=== PATIENT | female | born 1955 | race Caucasian/White ===

== ENCOUNTER → 2020-10-09 06:49 | Outpatient (CLI) | payer MEDICARE, SELFPAY ==
[2020-10-09 17:21] LABS: SARS-CoV-2 RNA PCR Negative
== END ==
PROVIDERS: PCP Family Medicine; Visit Provider Nurse Practitioner
DX: Z20.822 Contact with and (suspected) exposure to COVID-19 (principal)
CPT/HCPCS: C9803; U0003; U0005

== ENCOUNTER 2020-11-29 14:14 | Inpatient (IN) | payer MEDICARE, SELFPAY ==
[2020-11-29] VITALS (14 sets, daily range): BP systolic 150–192; BP diastolic 59–128; PULSE 66–85; RESP 15–20; TEMP 36.4–37.2; O2SAT 98–100; BMI 20.5
--- NOTE | ~2020-11-29 | MR_ITS ---
EXAMINATION: MR brain/brain stem wo con DATE: 12/05/2020 17:47 INDICATION: Hyponatremia. TECHNIQUE: Magnetic resonance imaging (MRI) of the brain and brainstem was performed without intraven ous contrast. Sequences included sagittal and axial T1-weighted FSE, axial diffusion-weighted FS EPI, axial T2*-weighted GRE, axial T2-weighted FLAIR Propeller, and axial T2-weighted Propeller. Apparent diffusion coefficient (ADC) maps were created. COMPARISON: Head CT 10/21/2016 FINDINGS: There are scattered areas of nonspecific increased T2-weighted signal intensity in the cere bral white matter and tiffany, which is within normal limits for the patient's age. There is no intracra nial hemorrhage, acute infarction, or abnormal intracranial mass lesion. The ventricles are normal in size. The paranasal sinuses are clear. There are likely changes of ocular lens replacement surgeries . There is a trace left mastoid effusion. IMPRESSION: 1. Normal aging brain. Reviewed, dictated and finalized at location A. IMPRESSION: 1. Normal aging brain.
--- NOTE | ~2020-11-29 | XR_ITS ---
EXAMINATION: XR chest 2V DATE: 12/05/2020 17:50 INDICATION: Shortness of breath. TECHNIQUE: Frontal and lateral views of the chest were obtained. COMPARISON: Chest 2 views 04/16/2016 FINDINGS: There is mild atelectasis in the lower lung zones. No pleural effusion or pneumothorax. The heart size is normal. There is a moderate-sized hiatal hernia. IMPRESSION: 1. Mild atelectasis in the lower lung zones. 2. Moderate-sized hiatal hernia. Reviewed, dictated and finalized at location A.
[2020-11-29 15:33] LABS: Basophils Percent Auto 0.8 % (0.2-1.2); Eosinophils Percent Auto 0.6 % (0-4.4); Hematocrit 22.3 % (37.0-47.0); Immature Granulocyte Absolute 0.01 K/mm3 (0.00-0.031); Immature Granulocyte Percent A 0.2 % (0-0.5); Lymphocytes Absolute Auto 0.69 K/mm3 (0.9-3.2); Lymphocytes Percent Auto 14.1 % (18.3-44.2); Mean Corpuscular HGB Conc 30.5 g/dl (32-36); Mean Corpuscular Hemoglobin 19.8 pg (26-34); Mean Platelet Volume 8.7 fl (7.4-10.4); Monocytes Absolute Auto 0.6 K/mm3 (0.1-0.6); Monocytes Percent Auto 12.1 % (2.6-8.5); Neutrophils Absolute Auto 3.5 K/mm3 (1.3-6.7); Neutrophils Percent Auto 72.2 % (45.5-73.1); Platelet Count Result 514 k/mm3 (150-375); Red Blood Count 3.43 M/mm3 (4.2-5.4); Red Cell Distribution Width 16.7 % (11.5-14.5); White Blood Count 4.9 K/mm3 (4.5-10.0)
[2020-11-29 15:41] LABS: Hemoglobin 6.8 g/dL (12.0-15.0)
[2020-11-29 15:42] LABS: Alanine Aminotransferase 40 U/L (4-35); Albumin Level 4.2 g/dL (3.5-5.1); Alkaline Phosphatase 80 U/L (38-126); Anion Gap 8 mmol/L (8-16); Aspartate Amino Transferase 56 U/L (14-36); Bilirubin,Total 0.3 mg/dL (0.2-1.3); Blood Urea Nitrogen 16 mg/dL (7-17); Calcium 9.1 mg/dL (8.4-10.2); Carbon Dioxide 26 mmol/L (22-30); Chloride 91 mmol/L (98-107); Estimated CRCL calculation 55 ml/min; Estimated Glomerular Filt Rate > 60; Glucose 132 mg/dL (65-105); INR 0.9; Magnesium 1.5 mg/dL (1.6-2.3); Prothrombin Time 12.6 Seconds (11.1-14.7); Sodium 125 mmol/L (137-145)
[2020-11-29 15:43] LABS: Partial Thromboplastin Time 23.8 SECONDS (22.3-36.8)
[2020-11-29 16:08] LABS: Immature Reticulocyte Fraction 26.7 % (3.0-15.9); Reticulocyte Hemoglobin Conten 19.5 pg (28.2-35.7); Reticulocyte Percent 1.61 % (0.7-4.3); Reticulocytes Absolute 0.06 B/L (32.2-175.7)
--- NOTE | 2020-11-29 16:08 | ED.GENADULT ---
HPI - General Adult General Chief complaint: Recheck/Abnormal Lab/Rx Stated complaint: abnormal labs Time Seen by Provider: 11/29/20 14:50 Source: patient and RN notes reviewed Mode of arrival: ambulatory Limitations: no limitations History of Present Illness HPI narrative: Patient 65 years old white female referred to the emergency room by her family physician because of low hemoglobin. Patient had regular blood test yesterday. Got a phone call today to go to the emergency room because of low hemoglobin. Patient reports history of chronic fatigue and weakness. Patient denies any fever, chills, nausea, vomiting, abdominal pain, back pain, discoloration of her urine. Patient on baby aspirin once a day, history of hypertension, drinks alcohol occasionally, had a lot of alcohol last night, denies any smoking. Related Data Home Medications Medication Instructions Recorded Confirmed omeprazole 20 mg capsule,delayed 20 mg PO DAILY 08/28/19 11/28/20 release hydralazine 10 mg tablet 10 mg PO TID tablet 11/28/20 11/28/20 hydrochlorothiazide 25 mg tablet 25 mg PO DAILY tablet 11/28/20 11/28/20 Allergies Allergy/AdvReac Type Severity Reaction Status Date / Time lisinopril Allergy Severe Swelling Verified 11/28/20 10:06 of Lip/Tongue/Throat Iodinated Contrast Media Allergy Unknown unknown Verified 11/28/20 10:06 iodine Allergy Unknown unknown Verified 11/28/20 10:06 amlodipine AdvReac Mild ankle Verified 11/28/20 10:06 swelling Review of Systems Review of Systems: Narrative: CONSTITUTIONAL: Denies fever, chills, or sweats. EYES: Denies visual changes, redness, or discharge. ENT: Denies rhinorrhea, congestion, sore throat, or otalgia. CARDIOVASCULAR: Denies chest pain, palpitations, or edema. RESPIRATORY: Denies cough or dyspnea. GASTROINTESTINAL: Denies abdominal pain, nausea, vomiting, or diarrhea. GENITOURINARY: Denies dysuria or hematuria. SKIN: Denies rash or itching. MUSCULOSKELETAL: Denies back pain, joint pain, or myalgia. NEUROLOGIC: Denies headache, numbness, or weakness. PSYCHIATRIC: Denies anxiety or depression. [facility] Past Medical History Medical History Anxiety disorder, unspecified Depression Dyslipidemia GERD (gastroesophageal reflux disease) History of colon polyps HTN (hypertension) (~1999) IBS (irritable bowel syndrome) Kidney disease Surgical History Surgical History Hx of cataract surgery (~2019) Dr. Shanks Family History Family History Grandparent Family history of cardiovascular disease, Onset Age: 76 Father Malignant neoplasm of prostate, Onset Age: 55 Family history of malignant neoplasm of brain, Onset Age: 55 Family history of malignant neoplasm of bone, Onset Age: 55 Mother Family history of congestive heart failure, Onset Age: 76 Hypertension Social History Social History Years smoked: 13 Smoking status: Former smoker Tobacco type: cigarettes Second hand tobacco smoke exposure: No Smoking end date: 09/02/20 Alcohol intake: current Drinks per week: 14 Substance use: never Substance use type: does not use Gender identity (if verbalized by the patient): Female Exam Narrative: Exam Narrative: General appearance: Well-developed, well-nourished Skin: Pale Head: Normocephalic, nontraumatic Eyes: Clear conjunctiva ENT: Oropharynx normal, ears normal, nose normal Neck: Supple, nontender Chest and respiratory: Airway patent, no respiratory distress, no accessory muscle use Heart: Regular rate/rhythm Abdomen: Soft, nontender, no organomegaly, quiet bowel sounds, rectal exam showed yellow stool, guaiac negative Vascular: Normal peripheral pulses, normal capillary refill. Musculoskeletal: Normal range of mo
[2020-11-29 16:19] LABS: Iron 29 ug/dL (37-170)
[2020-11-29 16:21] LABS: Transferrin 424 mg/dL (206-381)
[2020-11-29 16:24] LABS: Percent Iron Saturation 5 % (20-50)
[2020-11-29] MEDS: PANTOPRAZOLE SODIUM IV 40 MG VIAL IV PUSH (16:30)
[2020-11-29 16:40] LABS: Hematocrit 21.4 % (37.0-47.0)
[2020-11-29 16:41] LABS: Hemoglobin 6.7 g/dL (12.0-15.0)
[2020-11-29 16:50] LABS: Ferritin 5.52 ng/mL (11.1-264)
[2020-11-29] MEDS: SODIUM CHLORIDE 0.9% IV 250 ML 30 ML IV CONT (17:08)
[2020-11-29] MEDS: TUBING, BLOOD PLUM PUMP TUBING 1 EACH XX (17:08)
--- NOTE | 2020-11-29 18:26 | ADMGEN ---
This patient, Lorie Samuel, was admitted to [facility] Surg Room 303-01. Patient/family oriented to hospital policies and general routines including ID bracelet, bed and alarms, visiting hours, pain management, procedures, bathroom and other care routines, personal items, smoking policy, room service/diet, and visiting hours. Information on how to activate the Rapid Response Team has been discussed. Patient/Family are encouraged to report perceived risks to care and to ask questions if they do not understand what they are told or what they should do.
--- NOTE | 2020-11-29 18:30 | PM.IMHP ---
H&P: HPI History of Present Illness Date/Time: 11/29/20 18:30 Chief Complaint: Low hemoglobin. Narrative: This is a 65-year-old female with history of alcoholism, hypertension, gastroesophageal reflux disease, colon polyps, and anxiety who presented to the emergency department earlier today via private vehicle from home at the direction of her primary care provider for further evaluation after she was found to have a low hemoglobin level on labs obtained yesterday. Aside from increasing fatigue over the past month or so she has not had any significant symptoms of anemia. She has a history of iron deficiency anemia and was previously on iron but quit taking it for unclear reasons. She has not noticed any obvious blood loss and specifically denies epistaxis, hematemesis, hematochezia, melena, and hematuria. Her stool was guaiac negative in the emergency department. No syncope, near syncope, palpitations, or shortness of breath. She denies epigastric and abdominal discomfort. No significant change in GERD symptoms, which is pretty rare. No bloating. No known history of liver disease, gastritis, peptic ulcers, or varices. No unintentional weight loss. Review of Systems Review of Systems: Narrative: Twelve systems were reviewed with pertinent positives and negatives as per HPI. No fever, chills, or sweats. She denies recent cold and flu symptoms. No cough. No exposure to those positive for COVID-19. For the last several months she has not been walking for exercise as she used to due to intermittent midsternal chest discomfort pressure. This seems to improve with rest and is not associated with nausea, vomiting, shortness of breath, or sweats. No known history of coronary artery disease. She denies orthopnea, PND, and lower extremity edema. She has never had signs or symptoms of alcohol withdrawal. No history of seizures. Except as documented, all other systems were reviewed and are negative. [facility], [facility] Past Medical History Medical History (Updated 11/29/20 @ 20:49 by Jesusita Cedeño PA-C) Alcoholism Anxiety Depression Dyslipidemia Gastroesophageal reflux disease History of colon polyps Hypertension (~1999) Irritable bowel syndrome Surgical History Surgical History (Updated 11/29/20 @ 20:43 by Jesusita Cedeño PA-C) History of cataract extraction (~2018) History of hysterectomy Due to endometriosis History of tubal ligation Family History Family History Grandparent Family history of cardiovascular disease, Onset Age: 76 Father Malignant neoplasm of prostate, Onset Age: 55 Family history of malignant neoplasm of brain, Onset Age: 55 Family history of malignant neoplasm of bone, Onset Age: 55 Mother Family history of congestive heart failure, Onset Age: 76 Hypertension Social History Social History (Updated 11/29/20 @ 20:46 by Jesusita Cedeño PA-C) Social History: Surrogate decision maker: Artie Lynch, significant other. Code status: Full code. Smoking packs per day: 0.25 Smoking cigarettes per day: 5.0 Years smoked: 13 Smoking pack-years: 3.25 Smoking status: Former smoker Tobacco type: cigarettes Second hand tobacco smoke exposure: No Smoking end date: 09/02/20 Alcohol intake: current Alcohol use details: Longstanding history of alcoholism dating back to the early 80s for which she had inpatient treatment on 2 separate occasions. She does not qualify how much she drinks ?I just do not know how to describe it? but she drinks probably at least a half a bottle of wine a night. Previously she drank 1/3 of a 5th of vodka at night but stopped doing that at the beginning of 2020. Substance use: never Substance use type: does not use Additional living arrangements comments: Lives alone in [place]. She has a daughter who is healthy and lives in [place]. His son committed suicide at
[2020-11-29] MEDS: hydrALAZINE 10 MG TABLET PO (22:26)
[2020-11-29] MEDS: MAGNESIUM SULF 2 GM/WATER 50ML 2 GM/50 ML BAG IVPB (22:27)
[2020-11-29 22:56] LABS: Hematocrit 29.5 % (37.0-47.0); Hemoglobin 9.2 g/dL (12.0-15.0)
[2020-11-29 23:11] LABS: Anion Gap 6 mmol/L (8-16); Blood Urea Nitrogen 12 mg/dL (7-17); Calcium 9.1 mg/dL (8.4-10.2); Carbon Dioxide 28 mmol/L (22-30); Chloride 91 mmol/L (98-107); Estimated CRCL calculation 63 ml/min; Estimated Glomerular Filt Rate > 60; Potassium 3.5 mmol/L (3.4-5.0); Sodium 125 mmol/L (137-145)
[2020-11-29 23:26] LABS: Glucose 89 mg/dL (65-105)
[2020-11-30] VITALS (7 sets, daily range): BP systolic 132–155; BP diastolic 53–65; PULSE 61–70; RESP 16–20; TEMP 36.3–37.1; O2SAT 97–100
[2020-11-30 06:26] LABS: Basophils Absolute Auto 0.1 K/mm3 (0.0-0.1); Basophils Percent Auto 0.7 % (0.2-1.2); Eosinophils Percent Auto 0.6 % (0-4.4); Hematocrit 28.9 % (37.0-47.0); Hemoglobin 9.4 g/dL (12.0-15.0); Immature Granulocyte Absolute 0.02 K/mm3 (0.00-0.031); Immature Granulocyte Percent A 0.3 % (0-0.5); Lymphocytes Percent Auto 14.9 % (18.3-44.2); Mean Corpuscular HGB Conc 32.5 g/dl (32-36); Mean Corpuscular Hemoglobin 22.2 pg (26-34); Mean Corpuscular Volume 68.3 fl (80-100); Mean Platelet Volume 8.4 fl (7.4-10.4); Monocytes Absolute Auto 0.9 K/mm3 (0.1-0.6); Neutrophils Absolute Auto 4.7 K/mm3 (1.3-6.7); Neutrophils Percent Auto 69.5 % (45.5-73.1); Platelet Count Result 484 k/mm3 (150-375); Red Blood Count 4.23 M/mm3 (4.2-5.4); Red Cell Distribution Width 21.2 % (11.5-14.5); White Blood Count 6.7 K/mm3 (4.5-10.0)
[2020-11-30 06:47] LABS: Anion Gap 5 mmol/L (8-16); Blood Urea Nitrogen 10 mg/dL (7-17); Calcium 8.7 mg/dL (8.4-10.2); Carbon Dioxide 30 mmol/L (22-30); Chloride 92 mmol/L (98-107); Estimated CRCL calculation 55 ml/min; Estimated Glomerular Filt Rate > 60; Glucose 90 mg/dL (65-105); Potassium 3.7 mmol/L (3.4-5.0); Sodium 127 mmol/L (137-145)
[2020-11-30] MEDS: METOPROLOL SUCCINATE EXT REL 100 MG TABCR PO (07:58)
[2020-11-30] MEDS: hydrALAZINE 10 MG TABLET PO ×3 (07:58→16:26)
[2020-11-30] MEDS: FOLIC ACID 1 MG TABLET PO (07:58)
[2020-11-30] MEDS: FLUoxetine HCL 20 MG CAPSULE 60 MG PO (07:58)
[2020-11-30] MEDS: THIAMINE HCL 100 MG TABLET PO (08:00)
[2020-11-30] MEDS: PANTOPRAZOLE 40 MG TABLET PO (08:00)
[2020-11-30] MEDS: THERAPEUTIC MULTIVITAMINS/MINERALS TAB (*BKC) 1 TABLET PO (08:00)
[2020-11-30 10:42] LABS: IFOB Positive Control Positive; Immunochemical Fecal Occult Bl Negative (N)
[2020-11-30 10:52] LABS: Hematocrit 30.5 % (37.0-47.0); Hemoglobin 9.6 g/dL (12.0-15.0)
--- NOTE | 2020-11-30 13:43 | PM.IMPN ---
Progress Note: A&P Assessment and Plan (1) Alcoholism: Code(s): F10.20 - Alcohol dependence, uncomplicated Status: Acute Assessment and Plan: CIWA PROTOCOL NEEDED BANANA BAG CONTINUE TO MONITOR (2) Microcytic anemia: Code(s): D50.9 - Iron deficiency anemia, unspecified Status: Acute Assessment and Plan: HYPOCHROMIC MICROCYTIC ANEMIA GI HAS BEEN CONSULTED TRANSFUSE FOR HEMOGLOBIN BELOW 7 IRON STUDIES NOTED STATUS POST BLOOD TRANSFUSION (3) Hypertension: Onset Date: ~1999 Code(s): I10 - Essential (primary) hypertension Status: Acute Assessment and Plan: STABLE CONTINUE TO MONITOR (4) Hyponatremia: Code(s): E87.1 - Hypo-osmolality and hyponatremia Status: Acute Assessment and Plan: NO ROLE FOR URINE LYTES PATIENT IS ON DIURETICS AT HOME COULD BE A COMBINATION SIADH AND POTOMANIA WILL HOLD HYDROCHLOROTHIAZIDE CONTINUE TO MONITOR (5) Gastroesophageal reflux disease: Code(s): K21.9 - Gastro-esophageal reflux disease without esophagitis Status: Acute Assessment and Plan: CONTINUE OMEPRAZOLE CONTINUE TO MONITOR (6) Hypomagnesemia: Code(s): E83.42 - Hypomagnesemia Status: Acute Assessment and Plan: WILL GIVE MAGNESIUM SULFATE 2 G IV Additional Plan The patient presents today for evaluation of low hemoglobin found on routine labs yesterday. She is not really symptomatic with this aside from fatigue. Her stool was Hemoccult negative in the emergency department but I still suspect she has occult GI loss. Send stool for occult blood. She will be admitted overnight for transfusion of 2 units packed red blood cells. Change PPI to b.i.d. Iron studies are pending been I am assuming that she is once again iron deficient will need to be started on supplementation. Sodium and magnesium are likely low due to her chronic alcoholism. Magnesium will be replaced and monitored. Hold on IV fluids at this time as she is receiving blood transfusions; I think this will likely correct on its own as it is likely due to beer potomania in addition to thiazide diuretic use. Initiate CIWA protocol. Start thiamine, folic acid, and multivitamin supplementation. Blood pressures have been running high although she does not seem to be anxious or in withdrawal. Will resume her antihypertensives aside from hydrochlorothiazide and continue to monitor closely. Subjective Date/time seen: 11/30/20 13:43 I FEEL GOOD Review of Systems Review of Systems: Narrative: PATIENT PRESENTED TO THE EMERGENCY ROOM DUE TO ABNORMAL LAB VALUE DENIES ANY DISCOMFORT OR ISSUES AT THIS TIME Exam Narrative: Exam Narrative: General: Well-developed female sitting up in bed in no acute distress. Weight: 51 kilograms. BMI: 20.6. HEENT: PERRL, EOMI. Sclerae anicteric. Oral mucosa moist. Oropharynx clear. Neck: Supple. No JVD or lymphadenopathy. Respiratory: Lungs are clear to auscultation bilaterally. Cardiovascular: Regular rate and rhythm with S1-S2. Gastrointestinal: Abdomen is soft, nontender, and nondistended with positive bowel sounds. No voluntary guarding or rebound tenderness. Skin: Warm and dry. No rash or lesions on limited exam. Extremities: No cyanosis, clubbing, or edema. Radial and pedal pulses intact. Neurological: Alert. Cranial nerves 2-12 are grossly intact. No gross focal deficits to casual conversation. Psychiatric: Appropriate mood. Flat affect. Objective Data Vital Signs Vital Signs: Vital Signs - 24 hr 11/29/20 14:16 11/29/20 16:54 11/29/20 17:00 Temperature 97.6 F 98.9 F Pulse Rate 85 73 73 Respiratory Rate 20 16 16 Blood Pressure 169/128 H 180/67 H 180/67 H Pulse Oximetry 99 100 100 11/29/20 17:15 11/29/20 17:53 11/29/20 18:15 Temperature 98.7 F 98.5 F Pulse Rate 72 72 73 Respiratory Rate 16 16 15 Blood Pressure 160/62 H 160/62 H 192/80 H Pulse Oximetry 100 100 100
[2020-12-01] VITALS (7 sets, daily range): BP systolic 142–210; BP diastolic 67–100; PULSE 64–67; RESP 16–20; TEMP 36.5–37; O2SAT 99–100
[2020-12-01] MEDS: cloNIDine HCL 0.1 MG TABLET PO (06:38)
[2020-12-01] MEDS: METOPROLOL SUCCINATE EXT REL 100 MG TABCR PO (08:00)
[2020-12-01] MEDS: FLUoxetine HCL 20 MG CAPSULE 60 MG PO (08:01)
[2020-12-01] MEDS: THIAMINE HCL 100 MG TABLET PO (08:02)
[2020-12-01] MEDS: FOLIC ACID 1 MG TABLET PO (08:02)
[2020-12-01] MEDS: THERAPEUTIC MULTIVITAMINS/MINERALS TAB (*BKC) 1 TABLET PO (08:02)
[2020-12-01] MEDS: PANTOPRAZOLE 40 MG TABLET PO (08:02)
[2020-12-01] MEDS: hydrALAZINE HCL 25 MG TABLET PO ×3 (08:02→17:08)
[2020-12-01 08:16] LABS: Basophils Absolute Auto 0.1 K/mm3 (0.0-0.1); Basophils Percent Auto 0.8 % (0.2-1.2); Eosinophils Absolute Auto 0.1 K/mm3 (0-0.3); Eosinophils Percent Auto 1.3 % (0-4.4); Hematocrit 28.9 % (37.0-47.0); Hemoglobin 9.2 g/dL (12.0-15.0); Immature Granulocyte Absolute 0.02 K/mm3 (0.00-0.031); Immature Granulocyte Percent A 0.3 % (0-0.5); Lymphocytes Absolute Auto 0.71 K/mm3 (0.9-3.2); Lymphocytes Percent Auto 11.7 % (18.3-44.2); Mean Corpuscular HGB Conc 31.8 g/dl (32-36); Mean Corpuscular Hemoglobin 22.3 pg (26-34); Mean Corpuscular Volume 70.1 fl (80-100); Mean Platelet Volume 8.3 fl (7.4-10.4); Monocytes Absolute Auto 0.8 K/mm3 (0.1-0.6); Monocytes Percent Auto 13.9 % (2.6-8.5); Neutrophils Absolute Auto 4.4 K/mm3 (1.3-6.7); Platelet Count Result 448 k/mm3 (150-375); Red Blood Count 4.12 M/mm3 (4.2-5.4); Red Cell Distribution Width 21.3 % (11.5-14.5); White Blood Count 6.1 K/mm3 (4.5-10.0)
[2020-12-01 08:26] LABS: Anion Gap 6 mmol/L (8-16); Blood Urea Nitrogen 11 mg/dL (7-17); Carbon Dioxide 26 mmol/L (22-30); Chloride 92 mmol/L (98-107); Estimated CRCL calculation 63 ml/min; Estimated Glomerular Filt Rate > 60; Glucose 102 mg/dL (65-105); Potassium 3.8 mmol/L (3.4-5.0); Sodium 124 mmol/L (137-145)
--- NOTE | 2020-12-01 12:16 | WPDGIPROGNO ---
Progress Note: A&P Additional Plan Clears tomorrow IV iron Colon +/- EGD +/- Capsule Wednesday Full consult dictated #[id number] Jaya [phone] Subjective Date/time seen: 12/01/20 12:16 Objective Data Vital Signs Vital Signs: Vital Signs - 24 hr 11/30/20 14:00 11/30/20 22:00 12/01/20 06:00 Temperature 37.1 C 36.3 C L 36.5 C Pulse Rate 66 61 64 Respiratory Rate 20 16 16 Blood Pressure 148/62 H 134/59 L 185/83 H Pulse Oximetry 100 99 100 12/01/20 06:09 12/01/20 06:24 12/01/20 07:22 Temperature Pulse Rate Respiratory Rate Blood Pressure 210/100 H 210/100 H 190/82 H Pulse Oximetry 12/01/20 08:00 Temperature Pulse Rate 64 Respiratory Rate Blood Pressure Pulse Oximetry Intake/Output Intake/Output: Intake & Output 11/28/20 11/29/20 11/30/20 12/01/20 23:59 23:59 23:59 23:59 Intake Total 700 2492 160 Output Total 1100 250 Balance 700 1392 -90 Meds/Results Medications: Active Medications Generic Name Dose Route Start Last Admin Trade Name Freq PRN Reason Stop Dose Admin Chlordiazepoxide HCl 25 mg 11/29/20 20:54 Chlordiazepoxide (*Crx) 25 Mg Capsule PO Q8H PRN Alcohol Withdrawal Fluoxetine HCl 60 mg 11/30/20 09:00 12/01/20 08:01 Fluoxetine Hcl 20 Mg Capsule PO 60 mg DAILY DEMI Administration Folic Acid 1 mg 11/30/20 09:00 12/01/20 08:02 Folic Acid 1 Mg Tablet PO 1 mg DAILY DEMI Administration Hydralazine HCl 25 mg 12/01/20 09:00 12/01/20 08:02 Hydralazine Hcl 25 Mg Tablet PO 25 mg TID DEMI Administration Lorazepam 1 mg 11/29/20 20:54 Lorazepam Inj (*Crx) 2 Mg/Ml Vial IV PUSH Q3H PRN Anxiety Metoprolol Succinate 100 mg 11/30/20 09:00 12/01/20 08:00 Metoprolol Succinate Ext Rel 100 Mg Tabcr PO 100 mg DAILY DEMI Administration Multivitamins/Calcium 1 tablet 11/30/20 09:00 12/01/20 08:02 Therapeutic Multivitamins/Minerals Tab (*Bkc) PO 1 tablet QAM DEMI Administration Pantoprazole Sodium 40 mg 11/30/20 09:00 12/01/20 08:02 Pantoprazole 40 Mg Tablet PO 40 mg QAM DEMI Administration Thiamine HCl 100 mg 11/30/20 09:00 12/01/20 08:02 Thiamine Hcl 100 Mg Tablet PO 100 mg QAM DEMI Administration Labs Labs: Laboratory Results - last 24 hr 12/01/20 12/01/20 07:57 07:57 WBC 6.1 RBC 4.12 L Hgb 9.2 L Hct 28.9 L MCV 70.1 L MCH 22.3 L MCHC 31.8 L RDW 21.3 H Plt Count 448 H MPV 8.3 Immature Gran % (Auto) 0.3 Neut % (Auto) 72.0 Lymph % (Auto) 11.7 L [place] % (Auto) 13.9 H Eos % (Auto) 1.3 Baso % (Auto) 0.8 Lymph # (Auto) 0.71 L [place] # (Auto) 0.8 H Eos # (Auto) 0.1 Baso # (Auto) 0.1 Abs Immat Gran (auto) 0.02 Absolute Neuts (auto) 4.4 Absolute Nucleated RBC 0.0 Nucleated RBC % 0.0 Sodium 124 L Potassium 3.8 Chloride 92 L Carbon Dioxide 26 Anion Gap 6 L BUN 11 Creatinine 0.60 L Estim Creat Clear Calc 63 Estimated GFR > 60 Glucose 102 Calcium 9.0
--- NOTE | 2020-12-01 12:17 | PM.IMPN ---
Progress Note: A&P Assessment and Plan (1) Alcoholism: Code(s): F10.20 - Alcohol dependence, uncomplicated Status: Acute Assessment and Plan: CIWA PROTOCOL NEEDED BANANA BAG CONTINUE TO MONITOR (2) Microcytic anemia: Code(s): D50.9 - Iron deficiency anemia, unspecified Status: Acute Assessment and Plan: HYPOCHROMIC MICROCYTIC ANEMIA GI HAS BEEN CONSULTED TRANSFUSE FOR HEMOGLOBIN BELOW 7 IRON STUDIES NOTED STATUS POST BLOOD TRANSFUSION (3) Hypertension: Onset Date: ~1999 Code(s): I10 - Essential (primary) hypertension Status: Acute Assessment and Plan: STABLE CONTINUE TO MONITOR Patient had hypertensive episode in the morning She is on hydralazine and metoprolol Currently holding HCTZ due to hyponatremia (4) Hyponatremia: Code(s): E87.1 - Hypo-osmolality and hyponatremia Status: Acute Assessment and Plan: NO ROLE FOR URINE LYTES PATIENT IS ON DIURETICS AT HOME COULD BE A COMBINATION SIADH AND POTOMANIA WILL HOLD HYDROCHLOROTHIAZIDE CONTINUE TO MONITOR Started on free water restriction Repeat BMP in the morning (5) Gastroesophageal reflux disease: Code(s): K21.9 - Gastro-esophageal reflux disease without esophagitis Status: Acute Assessment and Plan: CONTINUE OMEPRAZOLE CONTINUE TO MONITOR (6) Hypomagnesemia: Code(s): E83.42 - Hypomagnesemia Status: Acute Assessment and Plan: WILL GIVE MAGNESIUM SULFATE 2 G IV Additional Plan The patient presents today for evaluation of low hemoglobin found on routine labs yesterday. She is not really symptomatic with this aside from fatigue. Her stool was Hemoccult negative in the emergency department but I still suspect she has occult GI loss. Send stool for occult blood. She will be admitted overnight for transfusion of 2 units packed red blood cells. Change PPI to b.i.d. Iron studies are pending been I am assuming that she is once again iron deficient will need to be started on supplementation. Sodium and magnesium are likely low due to her chronic alcoholism. Magnesium will be replaced and monitored. Hold on IV fluids at this time as she is receiving blood transfusions; I think this will likely correct on its own as it is likely due to beer potomania in addition to thiazide diuretic use. Initiate CIWA protocol. Start thiamine, folic acid, and multivitamin supplementation. Blood pressures have been running high although she does not seem to be anxious or in withdrawal. Will resume her antihypertensives aside from hydrochlorothiazide and continue to monitor closely. Subjective Date/time seen: 12/01/20 12:17 I feel fine Review of Systems Review of Systems: Narrative: Patient has no complaints this morning Exam Narrative: Exam Narrative: General: Well-developed female sitting up in bed in no acute distress. Weight: 51 kilograms. BMI: 20.6. HEENT: PERRL, EOMI. Sclerae anicteric. Oral mucosa moist. Oropharynx clear. Neck: Supple. No JVD or lymphadenopathy. Respiratory: Lungs are clear to auscultation bilaterally. Cardiovascular: Regular rate and rhythm with S1-S2. Gastrointestinal: Abdomen is soft, nontender, and nondistended with positive bowel sounds. No voluntary guarding or rebound tenderness. Skin: Warm and dry. No rash or lesions on limited exam. Extremities: No cyanosis, clubbing, or edema. Radial and pedal pulses intact. Neurological: Alert. Cranial nerves 2-12 are grossly intact. No gross focal deficits to casual conversation. Psychiatric: Appropriate mood. Flat affect. Objective Data Vital Signs Vital Signs: Vital Signs - 24 hr 11/30/20 14:00 11/30/20 22:00 12/01/20 06:00 Temperature 98.8 F 97.3 F L 97.7 F Pulse Rate 66 61 64 Respiratory Rate 20 16 16 Blood Pressure 148/62 H 134/59 L 185/83 H Pulse Oximetry 100 99 100 12/01/20 06:09 12/01/20 06:24 12/01/20 07:22 Temperature Puls
--- NOTE | 2020-12-01 17:40 | CONS_ITS ---
DATE OF CONSULTATION: 12/01/2020 HISTORY OF PRESENT ILLNESS: 65-year-old female with history of alcohol abuse, hypertension, GERD, history of colon polyps, anxiety, iron deficiency anemia, hyperlipidemia, cataract extraction, hysterectomy, tubal ligation, who again presents with anemia. I am now asked to provide GI evaluation at the request of the hospitalist service. PRIMARY CARE PROVIDER: Dr. Hu The patient's main complaint was fatigue. She otherwise denies abdominal pain, nausea, vomiting, heartburn, trouble swallowing, loss of appetite or weight, diarrhea, constipation, hematochezia, melena, fever, jaundice, scleral icterus, dark urine, light stools, itching, hot or cold intolerance, chest pain, shortness of breath at rest, hematuria, dysuria, new cough or visual changes, easy bruising, tingling of skin, bone pain or tremors. No endocarditis risk doctors. ALLERGIES: SEE LIST. OUTPATIENT MEDICINES: Include omeprazole 20 mg daily, Prozac, metoprolol, hydralazine, hydrochlorothiazide. SOCIAL HISTORY: Quit smoking on September 02, 2020. She drinks at least a half bottle of wine per night. FAMILY HISTORY: Negative for GI malignancy. The patient had colonoscopy with Dr. Yee in 2010, unremarkable. PHYSICAL EXAM: GENERAL: Well developed, well nourished female lying in bed, no apparent distress. She has no lower extremity edema, jaundice, spider angioma, or palmar erythema. HEENT: Skull is normocephalic, atraumatic. Pupils nonicteric. Oropharynx clear. NECK: Supple without thyromegaly. LUNGS: Clear to auscultation. HEART: Rate and rhythm regular. S1, S2 normal. ABDOMEN: Normoactive bowel sounds. Soft, nontender, nonrigid, nondistended without hepatosplenomegaly or masses. RECTAL: Deferred. NEURO: Conscious and alert x3. LABS: On December 01, hematocrit 29, MCV 70. On November 30, stool is heme negative. On November 29, stool is heme negative. Hematocrit 22, MCV 65. Ferritin is 6. INR 0.9. PTT is 24. ASSESSMENT AND PLAN: 1. Gastroesophageal reflux disease. Continue PPI. 2. Iron deficiency anemia. Certainly concern for GI source of blood loss including ulceration, arteriovenous malformation malignancy or polyp of the upper or lower GI tract. Could be esophagitis or some other issue. 3. The patient has no evidence of active GI bleed. Follow H and H and transfuse as needed. 4. Care with aspirin, nonsteroidals, and anticoagulants. 5. The patient has already eaten today, so we will start clear liquids tomorrow and consider for colonoscopy, possible upper endoscopy and possible capsule endoscopy on Wednesday. We will leave further details to Dr. Shelley. Consider IV iron, continue PPI. Thank you for allowing me to share in the care of this patient. Further recommendations per Dr. Shelley. CECE VALDEZ M.D. CC:? Trenton Hu M.D. GRAIN COMBINE DRIVER GRAIN COMBINE DRIVER D I MT: Sharyn
[2020-12-02] VITALS (9 sets, daily range): BP systolic 111–191; BP diastolic 55–84; PULSE 62–66; RESP 13–18; TEMP 36.6–36.7; O2SAT 98–100
[2020-12-02] MEDS: FLUoxetine HCL 20 MG CAPSULE 60 MG PO (08:29)
[2020-12-02] MEDS: PANTOPRAZOLE 40 MG TABLET PO (08:29)
[2020-12-02] MEDS: METOPROLOL SUCCINATE EXT REL 100 MG TABCR PO (08:29)
[2020-12-02] MEDS: hydrALAZINE HCL 25 MG TABLET PO ×3 (08:29→17:53)
--- NOTE | 2020-12-02 09:50 | PC.NURSE ---
patient to GI lab for procedure
[2020-12-02] MEDS: LACTATED RINGERS 1,000 ML 150 ML IV CONT (10:09)
--- NOTE | 2020-12-02 10:12 | WPDANESEPPF ---
Anes - Initial Pre Proc Eval Procedure: Operation Date: 12/02/20 11:00 Proposed Procedures p Esophagogastroduodenoscopy - Tristen Vasques MD Date/Time: 12/02/20 10:12 Surgeon: Rissa Banks MD Pre Op Diagnosis: anemia,alcohol abuse Patient Data Age: 65 Gender: F Height: 5 ft 2 in Weight: 51 kg Last Vital Signs Temp 36.6 C 12/02/20 10:05 Pulse 66 12/02/20 10:05 Resp 18 12/02/20 10:05 BP 191/84 H 12/02/20 10:05 Pulse Ox 98 12/02/20 10:05 Allergies Allergy/AdvReac Type Severity Reaction Status Date / Time lisinopril Allergy Severe Swelling Verified 11/29/20 18:39 of Lip/Tongue/Throat Iodinated Contrast Media Allergy Mild Nausea and Verified 11/29/20 18:39 Vomiting iodine Allergy Mild Nausea and Verified 11/29/20 18:39 Vomiting amlodipine AdvReac Mild ankle Verified 11/29/20 18:39 swelling Home Medications Medication Instructions Recorded Confirmed Type omeprazole 20 mg capsule,delayed 20 mg PO DAILY 08/28/19 11/29/20 History release fluoxetine 20 mg tablet 20 mg PO DAILY #30 tablet 09/23/20 11/29/20 Rx fluoxetine 40 mg capsule 40 mg PO DAILY #90 cap 10/03/20 11/29/20 Rx metoprolol succinate 100 mg 100 mg PO DAILY #90 tablet 10/03/20 11/29/20 Rx tablet,extended release 24 hr hydralazine 10 mg tablet 10 mg PO TID tablet 11/28/20 11/29/20 History hydrochlorothiazide 25 mg tablet 25 mg PO DAILY tablet 11/28/20 11/29/20 History Patient hx anesthesia problems: none Family hx anesthesia problems: none PMFSH Past Medical History Medical History Alcoholism Anxiety Depression Dyslipidemia Gastroesophageal reflux disease History of colon polyps Hypertension (~1999) Irritable bowel syndrome Surgical History Surgical History History of cataract extraction (~2018) History of hysterectomy Due to endometriosis History of tubal ligation Family History Family History Grandparent Family history of cardiovascular disease, Onset Age: 76 Father Malignant neoplasm of prostate, Onset Age: 55 Family history of malignant neoplasm of brain, Onset Age: 55 Family history of malignant neoplasm of bone, Onset Age: 55 Mother Family history of congestive heart failure, Onset Age: 76 Hypertension Social History Social History Social History: Surrogate decision maker: Artie Lynch, significant other. Code status: Full code. Smoking packs per day: 0.25 Smoking cigarettes per day: 5.0 Years smoked: 13 Smoking pack-years: 3.25 Smoking status: Former smoker Tobacco type: cigarettes Second hand tobacco smoke exposure: No Smoking end date: 09/02/20 Alcohol intake: current Alcohol use details: Longstanding history of alcoholism dating back to the early s for which she had inpatient treatment on 2 separate occasions. She does not qualify how much she drinks ?I just do not know how to describe it? but she drinks probably at least a half a bottle of wine a night. Previously she drank 1/3 of a 5th of vodka at night but stopped doing that at the beginning of 2020. Substance use: never Substance use type: does not use Additional living arrangements comments: Lives alone in [place]. She has a daughter who is healthy and lives in [place]. His son committed suicide at age 23. Additional occupation/education comments: Unemployed. Gender identity (if verbalized by the patient): Female Sexual Orientation (if Verbalized by the Patient): Straight or Heterosexual Spiritual care concerns: No Anes - Eval Final PreProcedure Day of Procedure 12/02/20 10:12 Patient weight: normal Heart: regular rate and rhythm Lungs: clear to auscultation Airway: Mallam
[2020-12-02] MEDS: hydrALAZINE HCL 20 MG/ML VIAL 10 MG IV PUSH (10:30)
--- NOTE | 2020-12-02 10:33 | SUR.PREOP ---
DR OCONNELL NOTIFIED B/P 191/, HR 66. NEW ORDERS RECEIVED FOR HYDRALAZINE 10MG IVP. GIVEN PER ORDERS.
--- NOTE | 2020-12-02 11:32 | PM.IMPN ---
Progress Note: A&P Assessment and Plan (1) Alcoholism: Code(s): F10.20 - Alcohol dependence, uncomplicated Status: Acute Assessment and Plan: CIWA PROTOCOL NEEDED BANANA BAG CONTINUE TO MONITOR (2) Microcytic anemia: Code(s): D50.9 - Iron deficiency anemia, unspecified Status: Acute Assessment and Plan: HYPOCHROMIC MICROCYTIC ANEMIA GI HAS BEEN CONSULTED TRANSFUSE FOR HEMOGLOBIN BELOW 7 IRON STUDIES NOTED STATUS POST BLOOD TRANSFUSION PLANS FOR EGD TOMORROW (3) Hypertension: Onset Date: ~1999 Code(s): I10 - Essential (primary) hypertension Status: Acute Assessment and Plan: STABLE CONTINUE TO MONITOR Patient had hypertensive episode in the morning She is on hydralazine and metoprolol Currently holding HCTZ due to hyponatremia (4) Hyponatremia: Code(s): E87.1 - Hypo-osmolality and hyponatremia Status: Acute Assessment and Plan: NO ROLE FOR URINE LYTES PATIENT IS ON DIURETICS AT HOME COULD BE A COMBINATION SIADH AND POTOMANIA WILL HOLD HYDROCHLOROTHIAZIDE CONTINUE TO MONITOR Started on free water restriction Repeat BMP in the morning (5) Gastroesophageal reflux disease: Code(s): K21.9 - Gastro-esophageal reflux disease without esophagitis Status: Acute Assessment and Plan: CONTINUE OMEPRAZOLE CONTINUE TO MONITOR (6) Hypomagnesemia: Code(s): E83.42 - Hypomagnesemia Status: Acute Assessment and Plan: WILL GIVE MAGNESIUM SULFATE 2 G IV Additional Plan The patient presents today for evaluation of low hemoglobin found on routine labs yesterday. She is not really symptomatic with this aside from fatigue. Her stool was Hemoccult negative in the emergency department but I still suspect she has occult GI loss. Send stool for occult blood. She will be admitted overnight for transfusion of 2 units packed red blood cells. Change PPI to b.i.d. Iron studies are pending been I am assuming that she is once again iron deficient will need to be started on supplementation. Sodium and magnesium are likely low due to her chronic alcoholism. Magnesium will be replaced and monitored. Hold on IV fluids at this time as she is receiving blood transfusions; I think this will likely correct on its own as it is likely due to beer potomania in addition to thiazide diuretic use. Initiate CIWA protocol. Start thiamine, folic acid, and multivitamin supplementation. Blood pressures have been running high although she does not seem to be anxious or in withdrawal. Will resume her antihypertensives aside from hydrochlorothiazide and continue to monitor closely. PLANS FOR EGD TOMORROW Subjective Date/time seen: 12/02/20 11:32 I FEEL FINE Review of Systems Review of Systems: Narrative: PATIENT DENIED ANY ISSUES AT THE TIME OF MY VISIT TODAY Exam Narrative: Exam Narrative: General: Well-developed female sitting up in bed in no acute distress. Weight: 51 kilograms. BMI: 20.6. HEENT: PERRL, EOMI. Sclerae anicteric. Oral mucosa moist. Oropharynx clear. Neck: Supple. No JVD or lymphadenopathy. Respiratory: Lungs are clear to auscultation bilaterally. Cardiovascular: Regular rate and rhythm with S1-S2. Gastrointestinal: Abdomen is soft, nontender, and nondistended with positive bowel sounds. No voluntary guarding or rebound tenderness. Skin: Warm and dry. No rash or lesions on limited exam. Extremities: No cyanosis, clubbing, or edema. Radial and pedal pulses intact. Neurological: Alert. Cranial nerves 2-12 are grossly intact. No gross focal deficits to casual conversation. Psychiatric: Appropriate mood. Flat affect. Objective Data Vital Signs Vital Signs: Vital Signs - 24 hr 12/01/20 14:00 12/01/20 21:54 12/02/20 06:00 Temperature 98.6 F 98.1 F 97.9 F Pulse Rate 67 64 62 Respiratory Rate 20 20 18 Blood Pressure 142/67 H 155/73 H 171/68 H Pulse Oximetry 99 100 100 05/0
--- NOTE | 2020-12-02 12:00 | PC.NURSE ---
patient returned to room from procedure
[2020-12-02] MEDS: THERAPEUTIC MULTIVITAMINS/MINERALS TAB (*BKC) 1 TABLET PO (12:12)
[2020-12-02] MEDS: FOLIC ACID 1 MG TABLET PO (12:12)
[2020-12-02] MEDS: THIAMINE HCL 100 MG TABLET PO (12:12)
[2020-12-02 12:24] LABS: Basophils Percent Auto 0.4 % (0.2-1.2); Eosinophils Absolute Auto 0.1 K/mm3 (0-0.3); Eosinophils Percent Auto 1.5 % (0-4.4); Hematocrit 29.7 % (37.0-47.0); Hemoglobin 9.4 g/dL (12.0-15.0); Immature Granulocyte Absolute 0.02 K/mm3 (0.00-0.031); Immature Granulocyte Percent A 0.4 % (0-0.5); Lymphocytes Absolute Auto 0.77 K/mm3 (0.9-3.2); Lymphocytes Percent Auto 14.7 % (18.3-44.2); Mean Corpuscular HGB Conc 31.6 g/dl (32-36); Mean Corpuscular Hemoglobin 21.9 pg (26-34); Mean Corpuscular Volume 69.2 fl (80-100); Mean Platelet Volume 8.3 fl (7.4-10.4); Monocytes Absolute Auto 0.7 K/mm3 (0.1-0.6); Monocytes Percent Auto 13.3 % (2.6-8.5); Neutrophils Absolute Auto 3.7 K/mm3 (1.3-6.7); Neutrophils Percent Auto 69.7 % (45.5-73.1); Platelet Count Result 458 k/mm3 (150-375); Red Blood Count 4.29 M/mm3 (4.2-5.4); Red Cell Distribution Width 21.7 % (11.5-14.5); White Blood Count 5.3 K/mm3 (4.5-10.0)
[2020-12-02 12:30] LABS: Anion Gap 2 mmol/L (8-16); Blood Urea Nitrogen 9 mg/dL (7-17); Calcium 8.8 mg/dL (8.4-10.2); Carbon Dioxide 29 mmol/L (22-30); Chloride 90 mmol/L (98-107); Estimated CRCL calculation 63 ml/min; Estimated Glomerular Filt Rate > 60; Glucose 105 mg/dL (65-105); Potassium 4.1 mmol/L (3.4-5.0); Sodium 121 mmol/L (137-145)
[2020-12-02] MEDS: BISACODYL 5 MG TABLET EC 20 MG PO (15:01)
[2020-12-02] MEDS: polyethylene glycoL 3350 238 GM BOTTLE PO (17:52)
[2020-12-02] MEDS: ONDANSETRON INJ 4 MG/2 ML VIAL IV PUSH (18:19)
[2020-12-03] VITALS (8 sets, daily range): BP systolic 85–178; BP diastolic 32–70; PULSE 55–70; RESP 14–20; TEMP 36.4–37; O2SAT 98–100
[2020-12-03 06:01] LABS: Basophils Percent Auto 0.9 % (0.2-1.2); Eosinophils Absolute Auto 0.2 K/mm3 (0-0.3); Eosinophils Percent Auto 3.4 % (0-4.4); Hematocrit 27.7 % (37.0-47.0); Hemoglobin 8.7 g/dL (12.0-15.0); Immature Granulocyte Absolute 0.01 K/mm3 (0.00-0.031); Immature Granulocyte Percent A 0.2 % (0-0.5); Lymphocytes Percent Auto 22.4 % (18.3-44.2); Mean Corpuscular HGB Conc 31.4 g/dl (32-36); Mean Corpuscular Hemoglobin 21.9 pg (26-34); Mean Corpuscular Volume 69.6 fl (80-100); Mean Platelet Volume 8.5 fl (7.4-10.4); Monocytes Absolute Auto 0.9 K/mm3 (0.1-0.6); Monocytes Percent Auto 19.1 % (2.6-8.5); Neutrophils Absolute Auto 2.4 K/mm3 (1.3-6.7); Platelet Count Result 457 k/mm3 (150-375); Red Blood Count 3.98 M/mm3 (4.2-5.4); Red Cell Distribution Width 21.6 % (11.5-14.5); White Blood Count 4.5 K/mm3 (4.5-10.0)
[2020-12-03 06:19] LABS: Anion Gap 4 mmol/L (8-16); Blood Urea Nitrogen 7 mg/dL (7-17); Calcium 8.9 mg/dL (8.4-10.2); Carbon Dioxide 27 mmol/L (22-30); Chloride 90 mmol/L (98-107); Estimated CRCL calculation 63 ml/min; Estimated Glomerular Filt Rate > 60; Glucose 101 mg/dL (65-105); Potassium 3.7 mmol/L (3.4-5.0); Sodium 121 mmol/L (137-145)
[2020-12-03] MEDS: MAGNESIUM CITRATE 300 ML BTL 240 ML PO (06:49)
--- NOTE | 2020-12-03 07:33 | WPDANESPN ---
Anes - Prog Note Post-Op Date/Time: 12/03/20 07:33 Cardiovascular status: normal Respiratory status: normal Airway patency: baseline Mental status: baseline Post-Op hydration status: normal Vital Signs: Last Vital Signs Temp 36.5 C 12/03/20 06:00 Pulse 59 L 12/03/20 06:00 Resp 16 12/03/20 06:00 BP 165/61 H 12/03/20 06:00 Pulse Ox 99 12/03/20 06:00 Pain Score (VAS): 3 I/O: Intake & Output 12/02/20 12/02/20 12/03/20 15:59 23:59 07:59 Intake Total 340 450 425 Output Total 300 450 Balance 340 150 -25 Laboratory Tests 12/03/20 05:34 12/03/20 05:34 12/02/20 12/02/20 12/03/20 12:13 12:13 05:34 WBC 5.3 4.5 RBC 4.29 3.98 L Hgb 9.4 L 8.7 L Hct 29.7 L 27.7 L MCV 69.2 L 69.6 L MCH 21.9 L 21.9 L MCHC 31.6 L 31.4 L RDW 21.7 H 21.6 H Plt Count 458 H 457 H MPV 8.3 8.5 Immature Gran % (Auto) 0.4 0.2 Neut % (Auto) 69.7 54.0 Lymph % (Auto) 14.7 L 22.4 Calvert % (Auto) 13.3 H 19.1 H Eos % (Auto) 1.5 3.4 Baso % (Auto) 0.4 0.9 Lymph # (Auto) 0.77 L 1.00 [place]vert # (Auto) 0.7 H 0.9 H Eos # (Auto) 0.1 0.2 Baso # (Auto) 0.0 0.0 Abs Immat Gran (auto) 0.02 0.01 Absolute Neuts (auto) 3.7 2.4 Absolute Nucleated RBC 0.0 0.0 Nucleated RBC % 0.0 0.0 Sodium 121 L Potassium 4.1 Chloride 90 L Carbon Dioxide 29 Anion Gap 2 L BUN 9 Creatinine 0.60 L Estim Creat Clear Calc 63 Estimated GFR > 60 Glucose 105 Calcium 8.8 12/03/20 05:34 WBC RBC Hgb Hct MCV MCH MCHC RDW Plt Count MPV Immature Gran % (Auto) Neut % (Auto) Lymph % (Auto) [place]vert % (Auto) Eos % (Auto) Baso % (Auto) Lymph # (Auto) [place]vert # (Auto) Eos # (Auto) Baso # (Auto) Abs Immat Gran (auto) Absolute Neuts (auto) Absolute Nucleated RBC Nucleated RBC % Sodium 121 L Potassium 3.7 Chloride 90 L Carbon Dioxide 27 Anion Gap 4 L BUN 7 Creatinine 0.60 L Estim Creat Clear Calc 63 Estimated GFR > 60 Glucose 101 Calcium 8.9 Post-procedural complaints: none Patient Feedback: Patient satisfied with anesthetic care.
[2020-12-03] MEDS: THIAMINE HCL 100 MG TABLET PO (08:00)
[2020-12-03] MEDS: FLUoxetine HCL 20 MG CAPSULE 60 MG PO (08:00)
[2020-12-03] MEDS: METOPROLOL SUCCINATE EXT REL 100 MG TABCR PO (08:00)
[2020-12-03] MEDS: hydrALAZINE HCL 25 MG TABLET PO ×3 (08:00→16:04)
[2020-12-03] MEDS: LACTATED RINGERS 1,000 ML 150 ML IV CONT (09:49)
--- NOTE | 2020-12-03 10:15 | WPDANESEPPF ---
Anes - Initial Pre Proc Eval Procedure: Operation Date: 12/03/20 11:30 Proposed Procedures p Colonoscopy - Tristen Vasques MD Date/Time: 12/03/20 10:15 Surgeon: Rissa Banks MD Pre Op Diagnosis: anemia,alcohol abuse Patient Data Age: 65 Gender: F Height: 1.57 m Weight: 51 kg Last Vital Signs Temp 37.0 C 12/03/20 09:45 Pulse 67 12/03/20 09:45 Resp 18 12/03/20 09:45 BP 178/70 H 12/03/20 09:45 Pulse Ox 98 12/03/20 09:45 Allergies Allergy/AdvReac Type Severity Reaction Status Date / Time lisinopril Allergy Severe Swelling Verified 12/03/20 09:44 of Lip/Tongue/Throat Iodinated Contrast Media Allergy Mild Nausea and Verified 12/03/20 09:44 Vomiting iodine Allergy Mild Nausea and Verified 12/03/20 09:44 Vomiting amlodipine AdvReac Mild ankle Verified 12/03/20 09:44 swelling Home Medications Medication Instructions Recorded Confirmed Type omeprazole 20 mg capsule,delayed 20 mg PO DAILY 08/28/19 11/29/20 History release fluoxetine 20 mg tablet 20 mg PO DAILY #30 tablet 09/23/20 11/29/20 Rx fluoxetine 40 mg capsule 40 mg PO DAILY #90 cap 10/03/20 11/29/20 Rx metoprolol succinate 100 mg 100 mg PO DAILY #90 tablet 10/03/20 11/29/20 Rx tablet,extended release 24 hr hydralazine 10 mg tablet 10 mg PO TID tablet 11/28/20 11/29/20 History hydrochlorothiazide 25 mg tablet 25 mg PO DAILY tablet 11/28/20 11/29/20 History Laboratory Tests 12/02/20 12/02/20 12/03/20 12:13 12:13 05:34 WBC 5.3 K/mm3 K/mm3 4.5 K/mm3 K/mm3 (4.5-10.0) (4.5-10.0) RBC 4.29 M/mm3 M/mm3 3.98 M/mm3 L M/mm3 (4.2-5.4) (4.2-5.4) Hgb 9.4 g/dL L g/dL 8.7 g/dL L g/dL (12.0-15.0) (12.0-15.0) Hct 29.7 % L % 27.7 % L % (37.0-47.0) (37.0-47.0) MCV 69.2 fl L fl 69.6 fl L fl (80-100) (80-100) MCH 21.9 pg L pg 21.9 pg L pg (26-34) (26-34) MCHC 31.6 g/dl L g/dl 31.4 g/dl L g/dl (32-36) (32-36) RDW 21.7 % H % 21.6 % H % (11.5-14.5) (11.5-14.5) Plt Count 458 k/mm3 H k/mm3 457 k/mm3 H k/mm3 (150-375) (150-375) MPV 8.3 fl fl 8.5 fl fl (7.4-10.4) (7.4-10.4) Immature Gran % (Auto) 0.4 % % 0.2 % % (0-0.5) (0-0.5) Neut % (Auto) 69.7 % % 54.0 % % (45.5-73.1) (45.5-73.1) Lymph % (Auto) 14.7 % L % 22.4 % % (18.3-44.2) (18.3-44.2) [place] % (Auto) 13.3 % H % 19.1 % H % (2.6-8.5) (2.6-8.5) Eos % (Auto) 1.5 % % 3.4 % % (0-4.4) (0-4.4) Baso % (Auto) 0.4 % % 0.9 % % (0.2-1.2) (0.2-1.2) Lymph # (Auto) 0.77 K/mm3 L K/mm3 1.00 K/mm3 K/mm3 (0.9-3.2) (0.9-3.2) [place] # (Auto) 0.7 K/mm3 H K/mm3 0.9 K/mm3 H K/mm3 (0.1-0.6) (0.1-0.6) Eos # (Auto) 0.1 K/mm3 K/mm3 0.2 K/mm3 K/mm3 (0-0.3) (0-0.3) Baso # (Auto) 0.0 K/mm3 K/mm3 0.0 K/mm3 K/mm3 (0.0-0.1) (0.0-0.1) Abs Immat Gran (auto) 0.02 K/mm3 K/mm3 0.01 K/mm3 K/mm3 (0.00-0.031) (0.00-0.031) Absolute Neuts (auto) 3.7 K/mm3 K/mm3 2.4 K/mm3 K/mm3 (1.3-6.7) (1.3-6.7) Absolute Nucleated RBC 0.0 K/mm3 K/mm3 0.0 K/mm3 K/mm3 (0.0-0.012) (0.0-0.012) Nucleated RBC % 0.0 % % 0.0 % % (0.0-0.2) (0.0-0.2) Sodium 121 mmol/L L mmol/L (137-145) Potassium 4.1 mmol/L mmol/L (3.4-5.0) Chloride 90 mmol/L L mmol/L (98-107) Carbon Dioxide 29 mmol/L mmol/L (22-30) Anion Gap 2 mmol/L L mmol/L (8-16) BUN 9 mg/dL mg/dL (7-17) Creatinine 0.60 mg/dL L mg/dL (0.7-1.0) Estim Creat Clear Calc 63 ml/min ml/min Estimated GFR > 60 (59 - ) Glucose 105 mg/dL mg/dL (65-105) Calcium 8.8 mg/dL mg/dL (8.4-10.2) 12/03/20 05:34 WBC RBC Hgb Hct MCV MCH MCHC RDW Plt Count MPV Immature Gran % (Auto) Neut % (Auto) Lymph % (Auto)
--- NOTE | 2020-12-03 16:04 | PM.IMPN ---
Progress Note: A&P Assessment and Plan (1) Alcoholism: Code(s): F10.20 - Alcohol dependence, uncomplicated Status: Acute Assessment and Plan: CIWA PROTOCOL NEEDED (2) Microcytic anemia: Code(s): D50.9 - Iron deficiency anemia, unspecified Status: Acute Assessment and Plan: HYPOCHROMIC MICROCYTIC ANEMIA EGD SHOWS hemorrhoids only (3) Hypertension: Onset Date: ~1999 Code(s): I10 - Essential (primary) hypertension Status: Acute Assessment and Plan: STABLE CONTINUE TO MONITOR (4) Hyponatremia: Code(s): E87.1 - Hypo-osmolality and hyponatremia Status: Acute Assessment and Plan: SODIUM IS 121 continue to monitor (5) Gastroesophageal reflux disease: Code(s): K21.9 - Gastro-esophageal reflux disease without esophagitis Status: Acute Assessment and Plan: CONTINUE OMEPRAZOLE CONTINUE TO MONITOR (6) Hypomagnesemia: Code(s): E83.42 - Hypomagnesemia Status: Acute Assessment and Plan: CONTINUE TO MONITOR Additional Plan INTERVAL HISTORY: The patient presents today for evaluation of low hemoglobin found on routine labs yesterday. She is not really symptomatic with this aside from fatigue. Her stool was Hemoccult negative in the emergency department but I still suspect she has occult GI loss. Send stool for occult blood. She will be admitted overnight for transfusion of 2 units packed red blood cells. Change PPI to b.i.d. Iron studies are pending been I am assuming that she is once again iron deficient will need to be started on supplementation. Sodium and magnesium are likely low due to her chronic alcoholism. Magnesium will be replaced and monitored. Hold on IV fluids at this time as she is receiving blood transfusions; I think this will likely correct on its own as it is likely due to beer potomania in addition to thiazide diuretic use. Initiate CIWA protocol. Start thiamine, folic acid, and multivitamin supplementation. . Subjective Date/time seen: 12/03/20 16:04 Review of Systems Review of Systems: All systems reviewed & are unremarkable except as noted in HPI and below Exam Narrative: Exam Narrative: General: Well-developed female sitting up in bed in no acute distress. . HEENT: PERRL, EOMI. Neck: Supple. No JVD or lymphadenopathy. Respiratory: Lungs are clear to auscultation bilaterally. Cardiovascular: Regular rate and rhythm with S1-S2. Gastrointestinal: Abdomen is soft, nontender, and nondistended with positive bowel sounds. Skin: Warm and dry. No rash or lesions on limited exam. Extremities: No cyanosis, clubbing, or edema. Radial and pedal pulses intact. Neurological: Alert. Cranial nerves 2-12 are grossly intact. No gross focal deficits to casual conversation. Psychiatric: Appropriate mood. Flat affect. Objective Data Vital Signs Vital Signs: Vital Signs - 24 hr 12/02/20 21:38 12/03/20 06:00 12/03/20 08:00 Temperature 36.7 C 36.5 C Pulse Rate 64 59 L 68 Respiratory Rate 16 16 Blood Pressure 165/71 H 165/61 H Pulse Oximetry 98 99 12/03/20 09:45 12/03/20 10:44 12/03/20 10:54 Temperature 37.0 C Pulse Rate 67 56 L 55 L Respiratory Rate 18 14 14 Blood Pressure 178/70 H 85/32 L 96/37 L Pulse Oximetry 98 100 99 12/03/20 11:00 Temperature Pulse Rate 55 L Respiratory Rate 14 Blood Pressure 139/66 Pulse Oximetry 99 Intake/Output Intake/Output: Intake & Output 11/30/20 12/01/20 12/02/20 12/03/20 23:59 23:59 23:59 23:59 Intake Total 2492 640 1180 525 Output Total 1100 650 700 450 Balance 1392 -10 480 75 Meds/Results Medications: Active Medications Generic Name Dose Route Start Last Admin Trade Name Freq PRN Reason Stop Dose Admin Chlordiazepoxide HCl 25 mg 11/29/20 20:54 Chlordiazepoxide (*Crx) 25 Mg Capsule PO Q8H PRN Alcohol Withdrawal Fluoxetine HCl 60 mg 11/30/20 09:00 12/03/20 08:00
[2020-12-04 06:00] VITALS: BP 160/51; PULSE 64; RESP 16; TEMP 36.3; O2SAT 99
[2020-12-04 06:02] LABS: Eosinophils Absolute Auto 0.1 K/mm3 (0-0.3); Hematocrit 27.6 % (37.0-47.0); Hemoglobin 8.9 g/dL (12.0-15.0); Immature Granulocyte Absolute 0.01 K/mm3 (0.00-0.031); Immature Granulocyte Percent A 0.2 % (0-0.5); Lymphocytes Absolute Auto 0.86 K/mm3 (0.9-3.2); Lymphocytes Percent Auto 21.2 % (18.3-44.2); Mean Corpuscular HGB Conc 32.2 g/dl (32-36); Mean Corpuscular Hemoglobin 21.9 pg (26-34); Mean Corpuscular Volume 67.8 fl (80-100); Mean Platelet Volume 8.3 fl (7.4-10.4); Monocytes Absolute Auto 0.8 K/mm3 (0.1-0.6); Monocytes Percent Auto 19.7 % (2.6-8.5); Neutrophils Absolute Auto 2.2 K/mm3 (1.3-6.7); Neutrophils Percent Auto 54.9 % (45.5-73.1); Platelet Count Result 477 k/mm3 (150-375); Red Blood Count 4.07 M/mm3 (4.2-5.4); Red Cell Distribution Width 21.8 % (11.5-14.5); White Blood Count 4.1 K/mm3 (4.5-10.0)
[2020-12-04 06:21] LABS: Potassium 3.7 mmol/L (3.4-5.0)
[2020-12-04 06:28] LABS: Anion Gap 4 mmol/L (8-16); Blood Urea Nitrogen 10 mg/dL (7-17); Calcium 9.1 mg/dL (8.4-10.2); Carbon Dioxide 28 mmol/L (22-30); Chloride 91 mmol/L (98-107); Estimated CRCL calculation 63 ml/min; Estimated Glomerular Filt Rate > 60; Glucose 88 mg/dL (65-105); Magnesium 1.7 mg/dL (1.6-2.3); Sodium 123 mmol/L (137-145)
--- NOTE | 2020-12-04 06:55 | WPDGIPROGNO ---
Progress Note: A&P Assessment and Plan (1) Hyponatremia: Code(s): E87.1 - Hypo-osmolality and hyponatremia Status: Acute Assessment and Plan: her sodium is slightly higher today. (2) Microcytic anemia: Code(s): D50.9 - Iron deficiency anemia, unspecified Status: Acute Assessment and Plan: It appears that her anemia is due to alcohol abuse as we have not found any source of blood loss. Unfortunately she did not take all of her prep and therefore small lesions could have been missed in her colon (3) Alcoholism: Code(s): F10.20 - Alcohol dependence, uncomplicated Status: Acute Assessment and Plan: she has gone through a few programs in the past for alcohol abuse. Once in the and again about 20 years ago at that time her daughter put her in a [employer] 4 month program. She states the only thing good about it was that she did not drink for 4 months but was very unpleasant experience. She admits that she does not drink when she visits her sister or family and she needs to get out more but unfortunately most of her family lives out of town. She is very open to suggestions how to deal with her alcohol problem Additional Plan from my perspective she can be discharged but some plans need to be made for her to get help with her dependency. CBCs should be followed regularly Subjective Date/time seen: 12/04/20 06:55 the patient is comfortable she says she tolerated her meal last night. She is going to concentrate on eating better. She is frustrated by lack of information about why she is here. I explained to her that her sodium is still low. Nobody had told her we all that would be corrected. We also discussed her anemia which at this point appears to be alcohol-related as there is no evidence of GI blood loss. She needs to be started on iron Review of Systems Review of Systems: All systems reviewed & are unremarkable except as noted in HPI and below Exam Const: General: alert Orientation/consciousness: patient oriented x3 Resp: Auscultation: clear to auscultation bilaterally Cardio: Rhythm: regular rhythm GI: GI Palp: Yes Soft to palpation and No Tenderness to palpation present (GI) Neuro: General: patient oriented x3 Extrem: General: other ( no asterixis or tremor) Objective Data Vital Signs Vital Signs: Vital Signs - 24 hr 12/03/20 08:00 12/03/20 09:45 12/03/20 10:44 Temperature 37.0 C Pulse Rate 68 67 56 L Respiratory Rate 18 14 Blood Pressure 178/70 H 85/32 L Pulse Oximetry 98 100 12/03/20 10:54 12/03/20 11:00 12/03/20 14:00 Temperature 36.9 C Pulse Rate 55 L 55 L 70 Respiratory Rate 14 14 20 Blood Pressure 96/37 L 139/66 157/67 H Pulse Oximetry 99 99 98 12/03/20 21:52 12/04/20 06:00 Temperature 36.4 C L 36.3 C L Pulse Rate 61 64 Respiratory Rate 16 16 Blood Pressure 109/49 L 160/51 H Pulse Oximetry 100 99 Intake/Output Intake/Output: Intake & Output 12/01/20 12/02/20 12/03/20 12/04/20 23:59 23:59 23:59 23:59 Intake Total 640 1180 1305 390 Output Total 650 700 450 300 Balance -10 480 855 90 Meds/Results Medications: Active Medications Generic Name Dose Route Start Last Admin Trade Name Freq PRN Reason Stop Dose Admin Chlordiazepoxide HCl 25 mg 11/29/20 20:54 Chlordiazepoxide (*Crx) 25 Mg Capsule PO Q8H PRN Alcohol Withdrawal Ferrous Gluconate 324 mg 12/04/20 08:00 Ferrous Gluconate 324 Mg Tablet PO BIDWM DEMI Fluoxetine HCl 60 mg 11/30/20 09:00 12/03/20 08:00 Fluoxetine Hcl 20 Mg Capsule PO 60 mg DAILY DEMI Administration Folic Acid 1 mg 11/30/20 09:00 12/03/20 07:34 Folic Acid 1 Mg Tablet PO Not Given DAILY DEMI Hydralazine HCl 25 mg 12/01/20 09:00 12/03/20 16:04 Hydralazine Hcl 25 Mg Tablet PO 25 mg TID DEMI Administration Lorazepam 1 mg 11/29/20 20:54 Lorazepam Inj (*Crx) 2 Mg/Ml Vial IV PUSH Q3H PRN Anxiety Metop
[2020-12-04 08:14] VITALS: PULSE 72
[2020-12-04] MEDS: METOPROLOL SUCCINATE EXT REL 100 MG TABCR PO (08:14)
[2020-12-04] MEDS: THIAMINE HCL 100 MG TABLET PO (08:14)
[2020-12-04] MEDS: FOLIC ACID 1 MG TABLET PO (08:14)
[2020-12-04] MEDS: THERAPEUTIC MULTIVITAMINS/MINERALS TAB (*BKC) 1 TABLET PO (08:15)
[2020-12-04] MEDS: hydrALAZINE HCL 25 MG TABLET PO ×3 (08:15→17:28)
[2020-12-04] MEDS: PANTOPRAZOLE 40 MG TABLET PO (08:15)
[2020-12-04] MEDS: FLUoxetine HCL 20 MG CAPSULE 60 MG PO (08:15)
[2020-12-04] MEDS: FERROUS GLUCONATE 324 MG TABLET PO ×2 (09:18→17:28)
--- NOTE | 2020-12-04 13:02 | PM.IMPN ---
Progress Note: A&P Assessment and Plan (1) Alcoholism: Code(s): F10.20 - Alcohol dependence, uncomplicated Status: Acute Assessment and Plan: CIWA PROTOCOL NEEDED (2) Microcytic anemia: Code(s): D50.9 - Iron deficiency anemia, unspecified Status: Acute Assessment and Plan: HYPOCHROMIC MICROCYTIC ANEMIA EGD SHOWS hemorrhoids only (3) Hypertension: Onset Date: ~1999 Code(s): I10 - Essential (primary) hypertension Status: Acute Assessment and Plan: STABLE CONTINUE TO MONITOR (4) Hyponatremia: Code(s): E87.1 - Hypo-osmolality and hyponatremia Status: Acute Assessment and Plan: SODIUM IS 123, pt is on fluid restriction, continue to monitor (5) Gastroesophageal reflux disease: Code(s): K21.9 - Gastro-esophageal reflux disease without esophagitis Status: Acute Assessment and Plan: CONTINUE OMEPRAZOLE CONTINUE TO MONITOR (6) Hypomagnesemia: Code(s): E83.42 - Hypomagnesemia Status: Acute Assessment and Plan: CONTINUE TO MONITOR Additional Plan INTERVAL HISTORY: The patient presents today for evaluation of low hemoglobin found on routine labs yesterday. She is not really symptomatic with this aside from fatigue. Her stool was Hemoccult negative in the emergency department but I still suspect she has occult GI loss. Send stool for occult blood. She will be admitted overnight for transfusion of 2 units packed red blood cells. Change PPI to b.i.d. Iron studies are pending been I am assuming that she is once again iron deficient will need to be started on supplementation. Sodium and magnesium are likely low due to her chronic alcoholism. Magnesium will be replaced and monitored. Hold on IV fluids at this time as she is receiving blood transfusions; I think this will likely correct on its own as it is likely due to beer potomania in addition to thiazide diuretic use. Initiate CIWA protocol. Start thiamine, folic acid, and multivitamin supplementation. . Subjective Date/time seen: 12/04/20 13:02 Interval history: 65-year-old female with history of alcoholism, hypertension, gastroesophageal reflux disease, colon polyps, and anxiety who presented to the emergency department earlier today via private vehicle from home at the direction of her primary care provider for further evaluation after she was found to have a low hemoglobin level on labs obtained yesterday. Pt had EGD. Pt sodium foundto be 121 yesterday, 123 today after fluid restriction. Review of Systems Review of Systems: All systems reviewed & are unremarkable except as noted in HPI and below Exam Narrative: Exam Narrative: General: Well-developed female HEENT: PERRLA Neck: Supple. Respiratory: Lungs are clear to auscultation bilaterally. Cardiovascular: Regular rate and rhythm with S1-S2. Gastrointestinal: Abdomen is soft, nontender, and nondistended with positive bowel sounds. Skin: Warm and dry. No rash or lesions on limited exam. Extremities: No cyanosis, clubbing, or edema. Radial and pedal pulses intact. Neurological: Alert. Cranial nerves 2-12 are grossly intact. No gross focal deficits to casual conversation. Psychiatric: Appropriate mood. Flat affect. Objective Data Vital Signs Vital Signs: Vital Signs - 24 hr 12/03/20 14:00 12/03/20 21:52 12/04/20 06:00 Temperature 36.9 C 36.4 C L 36.3 C L Pulse Rate 70 61 64 Respiratory Rate 20 16 16 Blood Pressure 157/67 H 109/49 L 160/51 H Pulse Oximetry 98 100 99 12/04/20 08:14 Temperature Pulse Rate 72 Respiratory Rate Blood Pressure Pulse Oximetry Intake/Output Intake/Output: Intake & Output 12/01/20 12/02/20 12/03/20 12/04/20 23:59 23:59 23:59 23:59 Intake Total 640 1180 1305 630 Output Total 650 700 450 300 Balance -10 671 325 330 Meds/Results Medications: Active Medications Generic Name Dose Route Start Last Admin
[2020-12-04 14:00] VITALS: BP 113/46; PULSE 68; RESP 16; TEMP 36.4; O2SAT 100
[2020-12-04 22:00] VITALS: BP 136/57; PULSE 66; RESP 18; TEMP 36.2; O2SAT 99
[2020-12-05 06:00] VITALS: BP 184/72; PULSE 64; RESP 20; TEMP 36.3; O2SAT 100
[2020-12-05 06:31] VITALS: BP 184/72
[2020-12-05] MEDS: hydrALAZINE HCL 25 MG TABLET PO ×3 (06:36→18:06)
[2020-12-05] MEDS: FERROUS GLUCONATE 324 MG TABLET PO ×2 (09:48→18:06)
[2020-12-05] MEDS: THIAMINE HCL 100 MG TABLET PO (09:48)
[2020-12-05] MEDS: FLUoxetine HCL 20 MG CAPSULE 60 MG PO (09:48)
[2020-12-05] MEDS: THERAPEUTIC MULTIVITAMINS/MINERALS TAB (*BKC) 1 TABLET PO (09:48)
[2020-12-05 09:49] VITALS: PULSE 67
[2020-12-05] MEDS: PANTOPRAZOLE 40 MG TABLET PO (09:49)
[2020-12-05] MEDS: METOPROLOL SUCCINATE EXT REL 100 MG TABCR PO (09:49)
[2020-12-05] MEDS: FOLIC ACID 1 MG TABLET PO (09:49)
--- NOTE | 2020-12-05 13:05 | PM.DS ---
DS: Admitting Diagnosis Admitting Diagnosis Admitting Diagnosis: DATE OF DISCHARGE IS 12/08/2020 Low hemoglobin. DS: Discharge Diagnosis Discharge Diagnosis (1) Alcoholism: Code(s): F10.20 - Alcohol dependence, uncomplicated Status: Acute Assessment and Plan: Pt to be discharged. Long discussion about alcoholism strongly advised to quit. (2) Microcytic anemia: Code(s): D50.9 - Iron deficiency anemia, unspecified Status: Acute Assessment and Plan: HYPOCHROMIC MICROCYTIC ANEMIA, hb is stable at 10 today. EGD SHOWS hemorrhoids only Pt to continue with hemorrhoidal cream and iron tablet at home. (3) Hypertension: Onset Date: ~1999 Code(s): I10 - Essential (primary) hypertension Status: Acute Assessment and Plan: Bp is 121/53. (4) Hyponatremia: Code(s): E87.1 - Hypo-osmolality and hyponatremia Status: Acute Assessment and Plan: SODIUM IS 128 pt to continue on fluid restriction and salt tablets at home. (5) Gastroesophageal reflux disease: Code(s): K21.9 - Gastro-esophageal reflux disease without esophagitis Status: Acute Assessment and Plan: CONTINUE OMEPRAZOLE (6) Hypomagnesemia: Code(s): E83.42 - Hypomagnesemia Status: Resolved DS: Summary Hospital Course Hospital Course: 65-year-old female with history of alcoholism, hypertension, gastroesophageal reflux disease, colon polyps, and anxiety who presented to the emergency department earlier today via private vehicle from home at the direction of her primary care provider for further evaluation after she was found to have a low hemoglobin level on labs obtained yesterday. Pt had EGD. EGD showed internal hemorrhoids. Pt sodium found to be 124 today slow improvement, pt seen by nephrology, pt had mri brain which was negative. Sodium slowly improving with fluid restriction, lasix and salt tablets. Pt to have a rpt BMP on . otherwise can be discharged as her baseline sodium level is 130. Time Spent with Patient Time attestation: Total time spent providing and/or coordinating discharge services:40 minutes on day of discharge Exam Narrative: Exam Narrative: General: Well-developed female HEENT: PERRLA Neck: Supple. Respiratory: Lungs are clear to auscultation bilaterally. Cardiovascular: Regular rate and rhythm with S1-S2. Gastrointestinal: Abdomen is soft, nontender, and nondistended with positive bowel sounds. Skin: Warm and dry. No rash or lesions on limited exam. Extremities: No cyanosis, clubbing, or edema. Radial and pedal pulses intact. Neurological: Alert. Cranial nerves 2-12 are grossly intact. No gross focal deficits to casual conversation. Psychiatric: Appropriate mood. Flat affect. DS: Data Data Completed and Pending Completed studies during hospitalization: Pending at discharge 12/02/20 11:25 Surgical [PTH] Routine Discharge Plan Discharge Attending physician on discharge: Kimberly Horn Consulting providers: Christiano Lake ; Conrad Bernabe Discharging Clinician: Kimberly Horn Anticipated Discharge Date/Time: 12/07/20 17:00 Patient Disposition: Home, Self-Care Activity: as tolerated Diet: regular Discharge Instructions: Pt to have BMP on result to be sent to DR Hayes office. and follow up with DR Bernabe in 2 weeks time. Patient Instructions: Antibiotic Form, Hyponatremia (DC), Iron Deficiency Anemia (GEN), Upper Endoscopy (DC) Stand Alone Forms: General Discharge Information Follow-up/Referrals: Christy Hu MD [Primary Care Provider] - Conrad Bernabe MD [Physician] - (in 2 weeks time ) Discharge Medications: New ferrous gluconate 324 mg (38 mg iron) Tablet 324 mg PO BIDWM Qty: 90 RF: 0 folic acid 1 mg Tablet 1 mg PO DAILY Qty: 90 RF: 0 Thera M Plus (ferrous fumarat) 9 mg iron-400 mcg Tablet 1
[2020-12-05 13:16] LABS: Hematocrit 30.5 % (37.0-47.0); Hemoglobin 9.7 g/dL (12.0-15.0); Mean Corpuscular HGB Conc 31.8 g/dl (32-36); Mean Corpuscular Hemoglobin 21.9 pg (26-34); Mean Platelet Volume 8.1 fl (7.4-10.4); Platelet Count Result 468 k/mm3 (150-375); Red Blood Count 4.42 M/mm3 (4.2-5.4); Red Cell Distribution Width 21.8 % (11.5-14.5)
[2020-12-05 13:42] LABS: Anion Gap 6 mmol/L (8-16); Blood Urea Nitrogen 8 mg/dL (7-17); Calcium 8.9 mg/dL (8.4-10.2); Carbon Dioxide 26 mmol/L (22-30); Chloride 88 mmol/L (98-107); Estimated CRCL calculation 55 ml/min; Estimated Glomerular Filt Rate > 60; Glucose 110 mg/dL (65-105); Potassium 4.2 mmol/L (3.4-5.0); Sodium 120 mmol/L (137-145)
--- NOTE | 2020-12-05 13:45 | PM.IMPN ---
Progress Note: A&P Assessment and Plan (1) Alcoholism: Code(s): F10.20 - Alcohol dependence, uncomplicated Status: Acute Assessment and Plan: Pt to be discharged with librium 10 mg po tid for 3 days then librium po bid for 3 days and then librium once a day and stop (2) Microcytic anemia: Code(s): D50.9 - Iron deficiency anemia, unspecified Status: Acute Assessment and Plan: HYPOCHROMIC MICROCYTIC ANEMIA EGD SHOWS hemorrhoids only (3) Hypertension: Onset Date: ~1999 Code(s): I10 - Essential (primary) hypertension Status: Acute Assessment and Plan: STABLE CONTINUE TO MONITOR (4) Hyponatremia: Code(s): E87.1 - Hypo-osmolality and hyponatremia Status: Acute Assessment and Plan: SODIUM IS 120, pt is on fluid restriction, unable to discharge patient due to low sodium level, consult nephrology (5) Gastroesophageal reflux disease: Code(s): K21.9 - Gastro-esophageal reflux disease without esophagitis Status: Acute Assessment and Plan: CONTINUE OMEPRAZOLE CONTINUE TO MONITOR (6) Hypomagnesemia: Code(s): E83.42 - Hypomagnesemia Status: Acute Assessment and Plan: CONTINUE TO MONITOR Subjective Date/time seen: 12/05/20 13:45 Interval history: 65-year-old female with history of alcoholism, hypertension, gastroesophageal reflux disease, colon polyps, and anxiety who presented to the emergency department earlier today via private vehicle from home at the direction of her primary care provider for further evaluation after she was found to have a low hemoglobin level on labs obtained yesterday. Pt had EGD. Pt sodium found to be 124 yesterday, 120 today. I will consult nephrology to help with this low sodium level. Review of Systems Review of Systems: All systems reviewed & are unremarkable except as noted in HPI and below Exam Narrative: Exam Narrative: General: Well-developed female HEENT: PERRLA Neck: Supple. Respiratory: Lungs are clear to auscultation bilaterally. Cardiovascular: Regular rate and rhythm with S1-S2. Gastrointestinal: Abdomen is soft, nontender, and nondistended with positive bowel sounds. Skin: Warm and dry. No rash or lesions on limited exam. Extremities: No cyanosis, clubbing, or edema. Radial and pedal pulses intact. Neurological: Alert. Cranial nerves 2-12 are grossly intact. No gross focal deficits to casual conversation. Psychiatric: Appropriate mood. Flat affect. Objective Data Vital Signs Vital Signs: Vital Signs - 24 hr 12/04/20 14:00 12/04/20 22:00 12/05/20 06:00 Temperature 36.4 C L 36.2 C L 36.3 C L Pulse Rate 68 66 64 Respiratory Rate 16 18 20 Blood Pressure 113/46 L 136/57 L 184/72 H Pulse Oximetry 100 99 100 12/05/20 06:31 12/05/20 09:49 Temperature Pulse Rate 67 Respiratory Rate Blood Pressure 184/72 H Pulse Oximetry Intake/Output Intake/Output: Intake & Output 12/02/20 12/03/20 12/04/20 12/05/20 23:59 23:59 23:59 23:59 Intake Total 1180 1305 1110 870 Output Total 700 450 300 Balance 480 855 810 870 Meds/Results Medications: Active Medications Generic Name Dose Route Start Last Admin Trade Name Freq PRN Reason Stop Dose Admin Chlordiazepoxide HCl 25 mg 11/29/20 20:54 Chlordiazepoxide (*Crx) 25 Mg Capsule PO Q8H PRN Alcohol Withdrawal Ferrous Gluconate 324 mg 12/04/20 08:00 12/05/20 09:48 Ferrous Gluconate 324 Mg Tablet PO 324 mg BIDWM DEMI Administration Fluoxetine HCl 60 mg 11/30/20 09:00 12/05/20 09:48 Fluoxetine Hcl 20 Mg Capsule PO 60 mg DAILY DEMI Administration Folic Acid 1 mg 11/30/20 09:00 12/05/20 09:49 Folic Acid 1 Mg Tablet PO 1 mg DAILY DEMI Administration Hydralazine HCl 25 mg 12/01/20 09:00 12/05/20 13:23 Hydralazine Hcl 25 Mg Tablet PO 25 mg TID DEMI Administration Lorazepam 1 mg 11/29/20 20:54 Lorazepam Inj (*
[2020-12-05 14:00] VITALS: BP 158/58; PULSE 66; RESP 16; TEMP 36.7; O2SAT 99
--- NOTE | 2020-12-05 14:42 | PM.CNNEP ---
Assessment and Plan Assessment and plan (1) Hyponatremia: Code(s): E87.1 - Hypo-osmolality and hyponatremia Status: Acute Assessment and Plan: The patient has a low sodium level. Things that cause this include: Medications. She was on hydrochlorothiazide when she came in. However the sodium just went Lower in spite stopping this. She is on Prozac which can cause this as well. She has significant depression and is struggling with alcohol and recently had an increase in her Prozac so I am not comfortable stopping the Prozac right now lest we bring on a fit of depression. Will continue the Prozac and work around this. The patient does not take narcotics. HIV COUNSELOR lesions can do this. Will check a brain MRI. Pulmonary issues can do this. Will check a chest x-ray. Cancer can do this. She is up-to-date with screening. She just had a colonoscopy and endoscopy. Hypothyroidism and hypo adrenal is am can do this. Will check these tests. Will check a serum protein electrophoresis to make sure it is not a false positive. Will check the above tests, serum osmolality, and urine osmolality. In the meantime will treat with salt tablets and furosemide. I will enhance the fluid restriction to 800cc. (2) Hypertension: Onset Date: ~1999 Code(s): I10 - Essential (primary) hypertension Status: Acute Assessment and Plan: Her blood pressure is up and down. Lately is been higher. Her hydrochlorothiazide was discontinued. She was on metoprolol and hydralazine. Hydralazine was recently increased. Will add amlodipine. (3) Depression: Qualifiers: Depression Type: unspecified Qualified Code(s): F32.9 - Major depressive disorder, single episode, unspecified Code(s): F32.9 - Major depressive disorder, single episode, unspecified Status: Acute Assessment and Plan: She is on Prozac (4) Microcytic anemia: Code(s): D50.9 - Iron deficiency anemia, unspecified Status: Acute Assessment and Plan: she had GI bleeding. Scopes as above. (5) Alcoholism: Code(s): F10.20 - Alcohol dependence, uncomplicated Status: Acute Assessment and Plan: The patient is eager to try to stop drinking alcohol. (6) Gastroesophageal reflux disease: Code(s): K21.9 - Gastro-esophageal reflux disease without esophagitis Status: Acute Assessment and Plan: She is on a PPI History of Present Illness Reason for Consult Consult date: 12/05/20 Chief Complaint Chief complaint: anemia,alcohol abuse History of Present Illness Narrative: Lorie is a very pleasant 65-year-old lady who has multiple medical problems including hypertension, GERD, colon polyps, anxiety, alcohol abuse disorder. The patient went for a yearly visit see her primary care physician. He did some blood work and found that her hemoglobin was low so sent her to the emergency room. She was admitted. She was given a couple of units of blood. She was seen by Dr. Crouch who did endoscopies and was found to have a hiatal hernia, and gastritis on the EGD and internal hemorrhoids on the colonoscopy. After she got the transfusions are hemoglobin came up to the low 90s and she has been ranging at around that same level since. On admission her sodium level was 127. She was treated with a 1500cc fluid restriction and also her hydrochlorothiazide was stopped. During the hospital stay her sodium went down as low as 121 but today was up to 123. Renal consultation was requested. She is on Prozac. She has been on this for a very long time. she has also been on the hydrochlorothiazide for very long time. She does not remember anybody telling her about low sodium in the past. looking back in the records in [place], her sodium level has been low since 2006. It generally ranges in the low 130s. She has no history of hypothyroidism or adrenal insufficiency. She
[2020-12-05 17:07] LABS: Sodium 122 mmol/L (137-145)
[2020-12-05] MEDS: FUROSEMIDE 10 MG TABLET PO (18:06)
[2020-12-05] MEDS: SODIUM CHLORIDE 500 MG TABLET PO (18:06)
--- NOTE | 2020-12-05 18:27 | PC.NURSE ---
Patient discharge held due to hyponatremia.
[2020-12-05 22:00] VITALS: BP 143/60; PULSE 70; RESP 18; TEMP 36.3; O2SAT 100
[2020-12-05] MEDS: ACETAMINOPHEN 325 MG TABLET 650 MG PO (22:22)
[2020-12-05 22:46] LABS: Sodium Urine Random 80 meq/L
[2020-12-06 06:00] VITALS: BP 171/85; PULSE 81; RESP 18; TEMP 36.6; O2SAT 99
[2020-12-06 06:21] LABS: Mean Corpuscular HGB Conc 31.3 g/dl (32-36); Mean Corpuscular Hemoglobin 21.7 pg (26-34); Mean Corpuscular Volume 69.6 fl (80-100); Mean Platelet Volume 8.5 fl (7.4-10.4); Platelet Count Result 460 k/mm3 (150-375); White Blood Count 3.3 K/mm3 (4.5-10.0)
[2020-12-06 06:29] LABS: Anion Gap 7 mmol/L (8-16); Blood Urea Nitrogen 16 mg/dL (7-17); Calcium 9.2 mg/dL (8.4-10.2); Carbon Dioxide 29 mmol/L (22-30); Chloride 88 mmol/L (98-107); Estimated CRCL calculation 63 ml/min; Estimated Glomerular Filt Rate > 60; Glucose 94 mg/dL (65-105); Potassium 3.8 mmol/L (3.4-5.0); Sodium 124 mmol/L (137-145)
[2020-12-06] MEDS: FUROSEMIDE 10 MG TABLET PO ×3 (08:15→16:29)
[2020-12-06] MEDS: SODIUM CHLORIDE 500 MG TABLET PO ×3 (08:15→16:29)
[2020-12-06 08:16] VITALS: PULSE 65
[2020-12-06] MEDS: THIAMINE HCL 100 MG TABLET PO (08:16)
[2020-12-06] MEDS: METOPROLOL SUCCINATE EXT REL 100 MG TABCR PO (08:16)
[2020-12-06] MEDS: THERAPEUTIC MULTIVITAMINS/MINERALS TAB (*BKC) 1 TABLET PO (08:16)
[2020-12-06] MEDS: FLUoxetine HCL 20 MG CAPSULE 60 MG PO (08:17)
[2020-12-06] MEDS: FOLIC ACID 1 MG TABLET PO (08:18)
[2020-12-06] MEDS: PANTOPRAZOLE 40 MG TABLET PO (08:18)
[2020-12-06] MEDS: FERROUS GLUCONATE 324 MG TABLET PO ×2 (08:18→16:29)
[2020-12-06] MEDS: hydrALAZINE HCL 25 MG TABLET PO ×3 (08:18→16:29)
--- NOTE | 2020-12-06 11:55 | PM.PNNEP ---
Progress Note: A&P Assessment and Plan (1) Hyponatremia: Code(s): E87.1 - Hypo-osmolality and hyponatremia Status: Acute Assessment and Plan: The patient has a low sodium level. Cortisol is 12.3. Will check a Cortrosyn stim test. TSH is normal. Brain MRI is normal for age chest x-ray shows minimal signs. Osmolality are pending SPEP is pending most likely this is hyponatremia from hydrochlorothiazide and Prozac. 5/6 Na 120 5/7 Na 124 She is on salt tablets, Lasix, fluid restriction. check sodium at 4p (2) Hypertension: Onset Date: ~1999 Code(s): I10 - Essential (primary) hypertension Status: Acute Assessment and Plan: Her blood pressure is up and down. Lately is been higher. Her hydrochlorothiazide was discontinued. She was on metoprolol and hydralazine. Hydralazine was recently increased. Start amlodipine (3) Depression: Qualifiers: Depression Type: unspecified Qualified Code(s): F32.9 - Major depressive disorder, single episode, unspecified Code(s): F32.9 - Major depressive disorder, single episode, unspecified Status: Acute Assessment and Plan: She is on Prozac (4) Microcytic anemia: Code(s): D50.9 - Iron deficiency anemia, unspecified Status: Acute Assessment and Plan: she had GI bleeding. Scopes as above. (5) Alcoholism: Code(s): F10.20 - Alcohol dependence, uncomplicated Status: Acute Assessment and Plan: The patient is eager to try to stop drinking alcohol. (6) Gastroesophageal reflux disease: Code(s): K21.9 - Gastro-esophageal reflux disease without esophagitis Status: Acute Assessment and Plan: She is on a PPI Subjective Date/time seen: 12/06/20 11:55 Interval history: Lorie is feeling pretty good today. She is eating. No chest pain or shortness of breath. Review of Systems Cardiovascular: Cardiovascular: Reports no additional cardiovascular complaints Respiratory: Respiratory: Reports no additional respiratory complaints Gastrointestinal: Gastrointestinal: Reports no additional gastrointestinal complaints Genitourinary: Genitourinary: Reports no additional female genitourinary complaints Exam Narrative: Exam Narrative: WDWN in NAD skin no rash head ncat lungs clear cor reg no rub abd BS+ nontender and soft ext no edema. Objective Data Vital Signs Vital Signs: Vital Signs - 24 hr 12/05/20 14:00 12/05/20 22:00 12/06/20 06:00 Temperature 36.7 C 36.3 C L 36.6 C Pulse Rate 66 70 81 Respiratory Rate 16 18 18 Blood Pressure 158/58 H 143/60 H 171/85 H Pulse Oximetry 99 100 99 12/06/20 08:16 Temperature Pulse Rate 65 Respiratory Rate Blood Pressure Pulse Oximetry Intake/Output Intake/Output: Intake & Output 12/03/20 12/04/20 12/05/20 12/06/20 23:59 23:59 23:59 23:59 Intake Total 1305 1110 870 195 Output Total 450 300 Balance 855 810 870 195 Meds/Results Medications: Active Medications Generic Name Dose Route Start Last Admin Trade Name Freq PRN Reason Stop Dose Admin Acetaminophen 650 mg 12/05/20 22:09 12/05/20 22:22 Acetaminophen 325 Mg Tablet PO 650 mg Q4H PRN Administration Headache Chlordiazepoxide HCl 25 mg 11/29/20 20:54 Chlordiazepoxide (*Crx) 25 Mg Capsule PO Q8H PRN Alcohol Withdrawal Ferrous Gluconate 324 mg 12/04/20 08:00 12/06/20 08:18 Ferrous Gluconate 324 Mg Tablet PO 324 mg BIDWM DEMI Administration Fluoxetine HCl 60 mg 11/30/20 09:00 12/06/20 08:17 Fluoxetine Hcl 20 Mg Capsule PO 60 mg DAILY DEMI Administration Folic Acid 1 mg 11/30/20 09:00 12/06/20 08:18 Folic Acid 1 Mg Tablet PO 1 mg DAILY DEMI Administration Furosemide 10 mg 12/05/20 17:30 12/06/20 11:14 Furosemide 10 Mg Tablet PO 10 mg PC DEMI Administration Hydralazine HCl 25 mg 12/01/20 09:00 12/06/20 08:18 Hydra
--- NOTE | 2020-12-06 12:07 | PM.IMPN ---
Progress Note: A&P Assessment and Plan (1) Alcoholism: Code(s): F10.20 - Alcohol dependence, uncomplicated Status: Acute Assessment and Plan: Pt states she wants to quit alcohol Librium there PRN (2) Microcytic anemia: Code(s): D50.9 - Iron deficiency anemia, unspecified Status: Acute Assessment and Plan: HYPOCHROMIC MICROCYTIC ANEMIA EGD SHOWED hemorrhoids only (3) Hypertension: Onset Date: ~1999 Code(s): I10 - Essential (primary) hypertension Status: Acute Assessment and Plan: STABLE CONTINUE TO MONITOR (4) Hyponatremia: Code(s): E87.1 - Hypo-osmolality and hyponatremia Status: Acute Assessment and Plan: SODIUM IS 124 today improved on fluid restriction, hopeful dc soon when sodium is better no specific compliants (5) Gastroesophageal reflux disease: Code(s): K21.9 - Gastro-esophageal reflux disease without esophagitis Status: Acute Assessment and Plan: CONTINUE OMEPRAZOLE CONTINUE TO MONITOR (6) Hypomagnesemia: Code(s): E83.42 - Hypomagnesemia Status: Acute Assessment and Plan: CONTINUE TO MONITOR Additional Plan INTERVAL HISTORY: The patient presents today for evaluation of low hemoglobin found on routine labs yesterday. She is not really symptomatic with this aside from fatigue. Her stool was Hemoccult negative in the emergency department but I still suspect she has occult GI loss. Send stool for occult blood. She will be admitted overnight for transfusion of 2 units packed red blood cells. Change PPI to b.i.d. Iron studies are pending been I am assuming that she is once again iron deficient will need to be started on supplementation. Sodium and magnesium are likely low due to her chronic alcoholism. Magnesium will be replaced and monitored. Hold on IV fluids at this time as she is receiving blood transfusions; I think this will likely correct on its own as it is likely due to beer potomania in addition to thiazide diuretic use. Initiate CIWA protocol. Start thiamine, folic acid, and multivitamin supplementation. Subjective Date/time seen: 12/06/20 12:08 Interval history: 65-year-old female with history of alcoholism, hypertension, gastroesophageal reflux disease, colon polyps, and anxiety who presented to the emergency department earlier today via private vehicle from home at the direction of her primary care provider for further evaluation after she was found to have a low hemoglobin level on labs obtained yesterday. Pt had EGD. Pt sodium found to be 124 today slow improvement, pt seen by nephrology, pt had mri brain which was negative. Sodium slowly improving with fluid restriction. Review of Systems Review of Systems: All systems reviewed & are unremarkable except as noted in HPI and below Exam Narrative: Exam Narrative: General: Well-developed female HEENT: PERRLA Neck: Supple. Respiratory: Lungs are clear to auscultation bilaterally. Cardiovascular: Regular rate and rhythm with S1-S2. Gastrointestinal: Abdomen is soft, nontender, and nondistended with positive bowel sounds. Skin: Warm and dry. No rash or lesions on limited exam. Extremities: No cyanosis, clubbing, or edema. Radial and pedal pulses intact. Neurological: Alert. Cranial nerves 2-12 are grossly intact. No gross focal deficits to casual conversation. Psychiatric: Appropriate mood. Flat affect. Objective Data Vital Signs Vital Signs: Vital Signs - 24 hr 12/05/20 14:00 12/05/20 22:00 12/06/20 06:00 Temperature 36.7 C 36.3 C L 36.6 C Pulse Rate 66 70 81 Respiratory Rate 16 18 18 Blood Pressure 158/58 H 143/60 H 171/85 H Pulse Oximetry 99 100 99 12/06/20 08:16 Temperature Pulse Rate 65 Respiratory Rate Blood Pressure Pulse Oximetry Intake/Output Intake/Output: Intake & Output 12/03/20 12/04/20 12/05/20 12/06/20 23:59 23:59 23:59 23:59 Intake Total 1305
[2020-12-06 14:00] VITALS: BP 121/61; PULSE 68; RESP 18; TEMP 37.1; O2SAT 100
[2020-12-06 20:00] LABS: Sodium 125 mmol/L (137-145)
[2020-12-06] MEDS: ACETAMINOPHEN 325 MG TABLET 650 MG PO (20:46)
[2020-12-06 22:00] VITALS: BP 118/56; PULSE 62; RESP 20; TEMP 36.6; O2SAT 99
[2020-12-07 06:00] VITALS: BP 173/70; PULSE 63; RESP 20; TEMP 36.2; O2SAT 100
[2020-12-07 06:08] LABS: Albumin Level 4.3 g/dL (3.5-5.1); Anion Gap 5 mmol/L (8-16); Blood Urea Nitrogen 15 mg/dL (7-17); Calcium 9.6 mg/dL (8.4-10.2); Carbon Dioxide 31 mmol/L (22-30); Chloride 91 mmol/L (98-107); Estimated CRCL calculation 55 ml/min; Estimated Glomerular Filt Rate > 60; Glucose 99 mg/dL (65-105); Phosphorus 4.2 mg/dL (2.5-4.5); Potassium 3.7 mmol/L (3.4-5.0); Sodium 127 mmol/L (137-145)
[2020-12-07] MEDS: FUROSEMIDE 10 MG TABLET PO ×3 (08:02→16:29)
[2020-12-07] MEDS: FLUoxetine HCL 20 MG CAPSULE 60 MG PO (08:02)
[2020-12-07 08:03] VITALS: PULSE 65
[2020-12-07] MEDS: PANTOPRAZOLE 40 MG TABLET PO (08:03)
[2020-12-07] MEDS: hydrALAZINE HCL 25 MG TABLET PO (08:03)
[2020-12-07] MEDS: SODIUM CHLORIDE 500 MG TABLET PO ×3 (08:03→16:29)
[2020-12-07] MEDS: METOPROLOL SUCCINATE EXT REL 100 MG TABCR PO (08:03)
[2020-12-07] MEDS: THIAMINE HCL 100 MG TABLET PO (08:03)
[2020-12-07] MEDS: FERROUS GLUCONATE 324 MG TABLET PO ×2 (08:03→16:29)
[2020-12-07] MEDS: THERAPEUTIC MULTIVITAMINS/MINERALS TAB (*BKC) 1 TABLET PO (08:03)
[2020-12-07] MEDS: FOLIC ACID 1 MG TABLET PO (08:03)
--- NOTE | 2020-12-07 11:42 | PM.PNNEP ---
Progress Note: A&P Assessment and Plan (1) Hyponatremia: Code(s): E87.1 - Hypo-osmolality and hyponatremia Status: Acute Assessment and Plan: The patient has a low sodium level. Cortisol is 12.3. Will check a Cortrosyn stim test. TSH is normal. Brain MRI is normal for age chest x-ray shows minimal signs. Osmolality are pending SPEP is pending most likely this is hyponatremia from hydrochlorothiazide and Prozac. 5/6 Na 120 5/7 Na 124 5/8 Na 127 She is on salt tablets, Lasix, fluid restriction. check sodium at 4p One sodium is 130 or higher I think she could be discharged from the kidney standpoint (2) Hypertension: Onset Date: ~1999 Code(s): I10 - Essential (primary) hypertension Status: Acute Assessment and Plan: Her blood pressure is up and down. It ranges from 110 to 173 She is on metoprolol 100, amlodipine 5, and hydralazine 25 3 times a day. The hydralazine may be contributing to the roller Coaster blood pressure. Will cut the hydralazine to 10 and increase the amlodipine to 10. (3) Depression: Qualifiers: Depression Type: unspecified Qualified Code(s): F32.9 - Major depressive disorder, single episode, unspecified Code(s): F32.9 - Major depressive disorder, single episode, unspecified Status: Acute Assessment and Plan: She is on Prozac (4) Microcytic anemia: Code(s): D50.9 - Iron deficiency anemia, unspecified Status: Acute Assessment and Plan: she had GI bleeding. Scopes as above. (5) Alcoholism: Code(s): F10.20 - Alcohol dependence, uncomplicated Status: Acute Assessment and Plan: The patient is eager to try to stop drinking alcohol. (6) Gastroesophageal reflux disease: Code(s): K21.9 - Gastro-esophageal reflux disease without esophagitis Status: Acute Assessment and Plan: She is on a PPI Subjective Date/time seen: 12/07/20 11:42 Interval history: Lorie is feeling pretty good today. Eager for discharge. No chest pain or shortness of breath. Exam Narrative: Exam Narrative: WDWN in NAD skin no rash or subcu nodules head ncat lungs clear cor reg no rub or gallop abd BS+ nontender and soft ext no edema. Objective Data Vital Signs Vital Signs: Vital Signs - 24 hr 12/06/20 14:00 12/06/20 22:00 12/07/20 06:00 Temperature 37.1 C 36.6 C 36.2 C L Pulse Rate 68 62 63 Respiratory Rate 18 20 20 Blood Pressure 121/61 118/56 L 173/70 H Pulse Oximetry 100 99 100 12/07/20 08:03 Temperature Pulse Rate 65 Respiratory Rate Blood Pressure Pulse Oximetry Intake/Output Intake/Output: Intake & Output 12/04/20 12/05/20 12/06/20 12/07/20 23:59 23:59 23:59 23:59 Intake Total 1110 870 255 300 Output Total 300 Balance 810 870 255 300 Meds/Results Medications: Active Medications Generic Name Dose Route Start Last Admin Trade Name Freq PRN Reason Stop Dose Admin Acetaminophen 650 mg 12/05/20 22:09 12/06/20 20:46 Acetaminophen 325 Mg Tablet PO 650 mg Q4H PRN Administration Headache Amlodipine Besylate 5 mg 12/07/20 09:00 12/07/20 08:05 Amlodipine Besylate 5 Mg Tablet PO Not Given QAM DEMI Chlordiazepoxide HCl 25 mg 11/29/20 20:54 Chlordiazepoxide (*Crx) 25 Mg Capsule PO Q8H PRN Alcohol Withdrawal Ferrous Gluconate 324 mg 12/04/20 08:00 12/07/20 08:03 Ferrous Gluconate 324 Mg Tablet PO 324 mg BIDWM DEMI Administration Fluoxetine HCl 60 mg 12/07/20 09:00 12/07/20 08:02 Fluoxetine Hcl 20 Mg Capsule PO 60 mg DAILY DEMI Administration Folic Acid 1 mg 11/30/20 09:00 12/07/20 08:03 Folic Acid 1 Mg Tablet PO 1 mg DAILY DEMI Administration Furosemide 10 mg 12/05/20 17:30 12/07/20 08:02 Furosemide 10 Mg Tablet PO 10 mg PC DEMI Administration Hydralazine HCl 25 mg 12/01/20 09:00 12/07/20 08:03 Hydralazine H
[2020-12-07] MEDS: hydrALAZINE 10 MG TABLET PO ×2 (12:08→16:29)
[2020-12-07 14:00] VITALS: BP 121/53; PULSE 74; RESP 16; TEMP 36.7; O2SAT 100
[2020-12-07 16:23] LABS: Sodium 127 mmol/L (137-145)
--- NOTE | 2020-12-07 16:54 | PC.NURSE ---
Addendum entered by Brenna Coe RN 12/07/20 16:56: Called Dr. Horn about sodium level. Dr. Horn talked to Dr. Bernabe and they both agreed that patient can leave when sodium level is at 130 or above. Pts sodium is still at 127 and will not be leaving today. Original Note: Called Dr. Horn about Na level. Dr. Horn called Dr. Bernabe and both agreed that the pt can go when
[2020-12-07] MEDS: ACETAMINOPHEN 325 MG TABLET 650 MG PO (21:41)
[2020-12-07 21:45] VITALS: BP 115/54; PULSE 65; RESP 18; TEMP 36.9; O2SAT 100
[2020-12-08 05:29] VITALS: BP 176/62; PULSE 65; RESP 18; TEMP 36.7; O2SAT 100
[2020-12-08 06:44] LABS: Anion Gap 6 mmol/L (8-16); Blood Urea Nitrogen 20 mg/dL (7-17); Calcium 9.4 mg/dL (8.4-10.2); Carbon Dioxide 29 mmol/L (22-30); Chloride 93 mmol/L (98-107); Estimated CRCL calculation 55 ml/min; Estimated Glomerular Filt Rate > 60; Glucose 89 mg/dL (65-105); Phosphorus 4.4 mg/dL (2.5-4.5); Potassium 3.7 mmol/L (3.4-5.0); Sodium 128 mmol/L (137-145)
[2020-12-08] MEDS: THIAMINE HCL 100 MG TABLET PO (08:40)
[2020-12-08] MEDS: THERAPEUTIC MULTIVITAMINS/MINERALS TAB (*BKC) 1 TABLET PO (08:40)
[2020-12-08 08:41] VITALS: PULSE 66
[2020-12-08] MEDS: FLUoxetine HCL 20 MG CAPSULE 60 MG PO (08:41)
[2020-12-08] MEDS: FERROUS GLUCONATE 324 MG TABLET PO (08:41)
[2020-12-08] MEDS: FUROSEMIDE 10 MG TABLET PO ×2 (08:41→11:19)
[2020-12-08] MEDS: SODIUM CHLORIDE 500 MG TABLET PO ×2 (08:41→11:19)
[2020-12-08] MEDS: METOPROLOL SUCCINATE EXT REL 100 MG TABCR PO (08:41)
[2020-12-08] MEDS: hydrALAZINE 10 MG TABLET PO (08:41)
[2020-12-08] MEDS: PANTOPRAZOLE 40 MG TABLET PO (08:42)
[2020-12-08] MEDS: FOLIC ACID 1 MG TABLET PO (08:42)
--- NOTE | 2020-12-08 09:20 | PM.PNNEP ---
Progress Note: A&P Assessment and Plan (1) Hyponatremia: Code(s): E87.1 - Hypo-osmolality and hyponatremia Status: Acute Assessment and Plan: The patient has a low sodium level. Cortisol is 12.3. Will check a Cortrosyn stim test. TSH is normal. Brain MRI is normal for age chest x-ray shows minimal signs. Serum osmolality is 258 which is close to calculated. Urine Osmolality is pending SPEP is pending most likely this is hyponatremia from hydrochlorothiazide and Prozac. 5/6 Na 120 5/7 Na 124 5/8 Na 127 She is on salt tablets, Lasix, fluid restriction. Noted called for p.m. sodium but today the sodium level is 128. Reviewing her old records, her sodium usually runs about 130-131. This is been going on for years. So I think the patient can be discharged today. She can get labs at [facility] on . She should make an appointment in my office for 2 weeks. I talked with the patient. She will call my office tomorrow morning to make the appointment. I talked with Dr. lisa Kramer (2) Hypertension: Onset Date: ~1999 Code(s): I10 - Essential (primary) hypertension Status: Acute Assessment and Plan: Her blood pressure is up and down. It ranges from 110 to 173 It seems that it is high every morning. She is on metoprolol 100, amlodipine 5, and hydralazine 25 3 times a day. The amlodipine to be given in the evening. (3) Depression: Qualifiers: Depression Type: unspecified Qualified Code(s): F32.9 - Major depressive disorder, single episode, unspecified Code(s): F32.9 - Major depressive disorder, single episode, unspecified Status: Acute Assessment and Plan: She is on Prozac (4) Microcytic anemia: Code(s): D50.9 - Iron deficiency anemia, unspecified Status: Acute Assessment and Plan: she had GI bleeding. Scopes as above. (5) Alcoholism: Code(s): F10.20 - Alcohol dependence, uncomplicated Status: Acute Assessment and Plan: The patient is eager to try to stop drinking alcohol. She says she will go to AA. (6) Gastroesophageal reflux disease: Code(s): K21.9 - Gastro-esophageal reflux disease without esophagitis Status: Acute Assessment and Plan: She is on a PPI Subjective Date/time seen: 12/08/20 09:20 Interval history: Lorie is feeling fine today. No chest pain or shortness of breath. Walking in the halls and eating well. Exam Narrative: Exam Narrative: WDWN in NAD skin no rash or subcu nodules head ncat lungs clear bilaterally cor reg no rub or gallop abd BS+ nontender and soft ext no edema or cyanosis. Objective Data Vital Signs Vital Signs: Vital Signs - 24 hr 12/07/20 14:00 12/07/20 21:45 12/08/20 05:29 Temperature 36.7 C 36.9 C 36.7 C Pulse Rate 74 65 65 Respiratory Rate 16 18 18 Blood Pressure 121/53 L 115/54 L 176/62 H Pulse Oximetry 100 100 100 12/08/20 08:41 Temperature Pulse Rate 66 Respiratory Rate Blood Pressure Pulse Oximetry Intake/Output Intake/Output: Intake & Output 12/05/20 12/06/20 12/07/20 12/08/20 23:59 23:59 23:59 23:59 Intake Total 870 255 740 120 Balance 870 255 740 120 Meds/Results Medications: Active Medications Generic Name Dose Route Start Last Admin Trade Name Freq PRN Reason Stop Dose Admin Acetaminophen 650 mg 12/05/20 22:09 12/07/20 21:41 Acetaminophen 325 Mg Tablet PO 650 mg Q4H PRN Administration Headache Amlodipine Besylate 10 mg 12/08/20 09:00 12/08/20 07:38 Amlodipine Besylate 5 Mg Tablet PO Not Given QAM DEMI Chlordiazepoxide HCl 25 mg 11/29/20 20:54 Chlordiazepoxide (*Crx) 25 Mg Capsule PO Q8H PRN Alcohol Withdrawal Ferrous Gluconate 324 mg 12/04/20 08:00 12/08/20 08:41 Ferrous Gluconate 324 Mg Tablet PO 324 mg BIDWM DEMI Administration Fluoxetine HCl 60 mg 12/07/20 09:00 12/08/20 08
--- NOTE | 2020-12-08 11:44 | PM.IMPN ---
Progress Note: A&P Assessment and Plan (1) Alcoholism: Code(s): F10.20 - Alcohol dependence, uncomplicated Status: Acute Assessment and Plan: Pt to be discharged. Long discussion about alcoholism strongly advised to quit. (2) Microcytic anemia: Code(s): D50.9 - Iron deficiency anemia, unspecified Status: Acute Assessment and Plan: HYPOCHROMIC MICROCYTIC ANEMIA, hb is stable at 10 today. EGD SHOWS hemorrhoids only Pt to continue with hemorrhoidal cream and iron tablet at home. (3) Hypertension: Onset Date: ~1999 Code(s): I10 - Essential (primary) hypertension Status: Acute Assessment and Plan: Bp is 121/53. (4) Hyponatremia: Code(s): E87.1 - Hypo-osmolality and hyponatremia Status: Acute Assessment and Plan: SODIUM IS 128 pt to continue on fluid restriction and salt tablets at home. (5) Gastroesophageal reflux disease: Code(s): K21.9 - Gastro-esophageal reflux disease without esophagitis Status: Acute Assessment and Plan: CONTINUE OMEPRAZOLE (6) Hypomagnesemia: Code(s): E83.42 - Hypomagnesemia Status: Resolved Subjective Date/time seen: 12/07/20 11:44 Interval history: 65-year-old female with history of alcoholism, hypertension, gastroesophageal reflux disease, colon polyps, and anxiety who presented to the emergency department earlier today via private vehicle from home at the direction of her primary care provider for further evaluation after she was found to have a low hemoglobin level on labs obtained yesterday. Pt had EGD. Pt sodium found to be low with slow improvement, pt seen by nephrology, pt had mri brain which was negative. Sodium slowly improving with fluid restriction and salt tablets. Review of Systems Review of Systems: All systems reviewed & are unremarkable except as noted in HPI and below Exam Const: General: cooperative and healthy appearing; No in distress Nutritional Appearance: overweight Orientation/consciousness: oriented to person HENMT: Head: normal to inspection Resp: Effort & Inspection: no respiratory distress Auscultation: no rhonchi and no wheezes Cardio: Rate: regular rate Rhythm: regular rhythm GI: Inspection: normal to inspection GI Palp: No abdominal tenderness, No Guarding due to palpation present (GI) and No Hepatomegaly present Auscultation: normal bowel sounds Neuro: General: oriented to person Objective Data Vital Signs Vital Signs: Vital Signs - 24 hr 12/07/20 14:00 12/07/20 21:45 12/08/20 05:29 Temperature 36.7 C 36.9 C 36.7 C Pulse Rate 74 65 65 Respiratory Rate 16 18 18 Blood Pressure 121/53 L 115/54 L 176/62 H Pulse Oximetry 100 100 100 12/08/20 08:41 Temperature Pulse Rate 66 Respiratory Rate Blood Pressure Pulse Oximetry Intake/Output Intake/Output: Intake & Output 12/05/20 12/06/20 12/07/20 12/08/20 23:59 23:59 23:59 23:59 Intake Total 870 255 740 120 Balance 870 255 740 120 Meds/Results Medications: Active Medications Generic Name Dose Route Start Last Admin Trade Name Freq PRN Reason Stop Dose Admin Acetaminophen 650 mg 12/05/20 22:09 12/07/20 21:41 Acetaminophen 325 Mg Tablet PO 650 mg Q4H PRN Administration Headache Amlodipine Besylate 10 mg 12/08/20 09:00 12/08/20 07:38 Amlodipine Besylate 5 Mg Tablet PO Not Given QAM DEMI Chlordiazepoxide HCl 25 mg 11/29/20 20:54 Chlordiazepoxide (*Crx) 25 Mg Capsule PO Q8H PRN Alcohol Withdrawal Ferrous Gluconate 324 mg 12/04/20 08:00 12/08/20 08:41 Ferrous Gluconate 324 Mg Tablet PO 324 mg BIDWM DEMI Administration Fluoxetine HCl 60 mg 12/07/20 09:00 12/08/20 08:41 Fluoxetine Hcl 20 Mg Capsule PO 60 mg DAILY DEMI Administration Folic Acid 1 mg 11/30/20 09:00 12/08/20 08:42 Folic Acid 1 Mg Tablet PO 1 mg DAILY DEMI Administration Furosemide 10 mg 12/05/20 17:30 0
[2020-12-09 04:53] LABS: Osmolality, Urine 625 mOsm/kg (50-1200)
[2020-12-10 21:24] LABS: Albumin 4.1 g/dL (3.8-4.8); Alpha 1 Globulin 0.3 g/dL (0.2-0.3); Alpha 2 Globulin 0.8 g/dL (0.5-0.9); Beta 1 Globulin 0.5 g/dL (0.4-0.6); Gamma Globulin 0.7 g/dL (0.8-1.7); Interpretation Consistent with; Protein, Total 6.7 g/dL (6.1-8.1)
--- NOTE | 2021-01-15 09:44 | PM.IMPN ---
Progress Note: A&P Assessment and Plan (1) Alcoholism: Code(s): F10.20 - Alcohol dependence, uncomplicated Status: Acute Assessment and Plan: Pt to be discharged soon.Long discussion about alcoholism strongly advised to quit. (2) Microcytic anemia: Code(s): D50.9 - Iron deficiency anemia, unspecified Status: Acute Assessment and Plan: HYPOCHROMIC MICROCYTIC ANEMIA, hb is stable at 10 today. EGD SHOWS hemorrhoids only Pt to continue with hemorrhoidal cream and iron tablet at home. (3) Hypertension: Onset Date: ~1999 Code(s): I10 - Essential (primary) hypertension Status: Acute Assessment and Plan: Bp is 121/53. (4) Hyponatremia: Code(s): E87.1 - Hypo-osmolality and hyponatremia Status: Acute Assessment and Plan: SODIUM IS 127 pt to continue on fluid restriction and salt tablets at home. (5) Gastroesophageal reflux disease: Code(s): K21.9 - Gastro-esophageal reflux disease without esophagitis Status: Acute Assessment and Plan: CONTINUE OMEPRAZOLE (6) Hypomagnesemia: Code(s): E83.42 - Hypomagnesemia Status: Resolved Subjective Date/time seen: 12/07/2020 Interval history: 65-year-old female with history of alcoholism, hypertension, gastroesophageal reflux disease, colon polyps, and anxiety who presented to the emergency department earlier today via private vehicle from home at the direction of her primary care provider for further evaluation after she was found to have a low hemoglobin level on labs. Review of Systems Review of Systems: All systems reviewed & are unremarkable except as noted in HPI and below Exam Const: General: cooperative and healthy appearing; No in distress Nutritional Appearance: overweight Orientation/consciousness: oriented to person HENMT: Head: normal to inspection Resp: Effort & Inspection: no respiratory distress Auscultation: no rhonchi and no wheezes Cardio: Rate: regular rate Rhythm: regular rhythm GI: Inspection: normal to inspection Auscultation: normal bowel sounds Neuro: General: oriented to person Objective Data Meds/Results Radiology Results: ITS Impressions Brain MRI 12/05/20 17:48 IMPRESSION: 1. Normal aging brain. Chest X-Ray 12/05/20 17:59 IMPRESSION: 1. Mild atelectasis in the lower lung zones. 2. Moderate-sized hiatal hernia. Quality VTE Prophylaxis VTE prophylaxis: mechanical ordered
== END 2020-12-08 13:10 | disposition home or self-care (01) | DRG 812 ==
LOC: ANHED 16:15 → ANH3MEDSUR 16:41
PROVIDERS: Internal Medicine Gastroenterology; Internal Medicine Nephrology; Physician Assistant; Admitting Provider Internal Medicine; Emergency Provider Emergency Medicine; PCP Family Medicine; Visit Provider Family Medicine
PROC: 0DJ08ZZ Inspection of Upper Intestinal Tract, Via Natural or Artificial Opening Endoscopic (ICD-10-PCS; CPT 43235; principal; 2020-12-02 11:00)
PROC: 0DJD8ZZ Inspection of Lower Intestinal Tract, Via Natural or Artificial Opening Endoscopic (ICD-10-PCS; CPT 45378; principal; 2020-12-03 11:30)
DX: D50.8 Other iron deficiency anemias (principal); E22.2 Syndrome of inappropriate secretion of antidiuretic hormone; T43.225A Adverse effect of selective serotonin reuptake inhibitors, initial encounter; T50.2X5A Adverse effect of carbonic-anhydrase inhibitors, benzothiadiazides and other diuretics, initial encounter; F10.20 Alcohol dependence, uncomplicated; K29.70 Gastritis, unspecified, without bleeding; K64.8 Other hemorrhoids; K21.9 Gastro-esophageal reflux disease without esophagitis; K44.9 Diaphragmatic hernia without obstruction or gangrene; I10 Essential (primary) hypertension; E83.42 Hypomagnesemia; F41.9 Anxiety disorder, unspecified; F32.9 Major depressive disorder, single episode, unspecified; E78.5 Hyperlipidemia, unspecified; K58.9 Irritable bowel syndrome, unspecified; Z98.42 Cataract extraction status, left eye; Z98.41 Cataract extraction status, right eye; Z90.710 Acquired absence of both cervix and uterus; Z87.891 Personal history of nicotine dependence
CPT/HCPCS: 36415; 36430; 70551; 71046; 80048; 80053; 80069; 82274; 82533; 82728; 83540; 83550; 83735; 83930; 83935; 84155; 84165; 84295; 84300; 84443; 84466; 85014; 85018; 85025; 85027; 85046; 85610; 85730; 86850; 86900; 86901; 86923; 87081; 88305; 96374; 96375; 99285; A9270; C9113; G0378; J0360; J2370; J2405; J2704; J3475; J7050; J7120; P9016

== ENCOUNTER 2021-04-14 00:29 | Emergency (ER) | payer MEDICARE, SELFPAY ==
[2021-04-14] VITALS (30 sets, daily range): BP systolic 116–212; BP diastolic 61–94; PULSE 65–83; RESP 14–21; TEMP 36.6–36.8; O2SAT 97–100
--- NOTE | ~2021-04-14 | CT_ITS ---
EXAMINATION: CTA chest abdomen pelvis DATE: 04/14/2021 01:55 INDICATION: Chest and abdominal pain, concern for aortic dissection TECHNIQUE: Computed tomographic angiography (CTA) of the chest, abdomen, and pelvis was performed wit h 100 mL Omnipque-350 intravenous contrast. Maximum intensity projection 3D-reconstructions of the ao rta and other arteries were constructed by the technologist on a separate workstation. The dose-lengt h product (DLP) was 377.53 mGy-cm. Automated exposure control and iterative reconstruction technique were employed. COMPARISON: 12/01/2013 FINDINGS: CHEST CTA: There is no dissection or aneurysm of the thoracic aorta. Calcified atherosclerosis is noted. There i s also calcified coronary artery atherosclerosis. A moderate-sized hiatal hernia is noted. There are dependent nodular and groundglass opacities in the lower lobes. No pleural effusion or pneumothorax i s identified. No pathologically enlarged thoracic lymph nodes are identified. The heart size is gabriel l. Thoracolumbar dextroscoliosis is noted. ABDOMEN AND PELVIS CTA: There is no dissection or aneurysm of the abdominal aorta. There is calcified atherosclerosis of the aorta and many of the other arteries. The celiac axis, superior mesenteric artery, and inferior mesen teric artery are without significant stenosis. The liver, spleen, pancreas, gallbladder, and adrenal glands are normal. The kidneys are unremarkable. No pathologically enlarged abdominal or pelvic lymph nodes are identified. There is no free intraperitoneal gas or evidence of bowel obstruction. The norm endix is normal. There is a burst fracture of the L3 vertebral body which is new since the prior exam ination. IMPRESSION: 1. No dissection or aneurysm of the thoracic or abdominal aorta. 2. Moderate-sized hiatal hernia. 3. Age-indeterminate burst fracture of the L3 vertebral body. Reviewed, dictated and finalized at location A.
--- NOTE | 2021-04-14 00:45 | ECG_ITS ---
Measurements Intervals [place] Rate: 76 P: 31 SC: 153 QRS: 47 QRSD: 80 T: 53 QT: 404 QTc: 455 Interpretive Statements SINUS RHYTHM BORDERLINE ST ABNORMALITY- ANTEROLATERAL LEADS BASELINE ARTIFACT- I, II, III, AVR, AVL, AVF BORDERLINE ECG Electronically Signed On 04-14-2021 5:26:24 CDT by Ernst Duval D.O.
[2021-04-14] MEDS: LORazepam INJ (*CRX) 2 MG/ML VIAL 1 MG IV PUSH (00:56)
[2021-04-14 01:04] LABS: Basophils Absolute Auto 0.1 K/mm3 (0.0-0.1); Basophils Percent Auto 0.9 % (0.2-1.2); Eosinophils Absolute Auto 0.1 K/mm3 (0-0.3); Eosinophils Percent Auto 1.8 % (0-4.4); Hematocrit 32.3 % (37.0-47.0); Hemoglobin 10.6 g/dL (12.0-15.0); Immature Granulocyte Absolute 0.01 K/mm3 (0.00-0.031); Immature Granulocyte Percent A 0.2 % (0-0.5); Lymphocytes Absolute Auto 1.34 K/mm3 (0.9-3.2); Lymphocytes Percent Auto 24.2 % (18.3-44.2); Mean Corpuscular HGB Conc 32.8 g/dl (32-36); Mean Corpuscular Hemoglobin 24.4 pg (26-34); Mean Corpuscular Volume 74.3 fl (80-100); Mean Platelet Volume 8.6 fl (7.4-10.4); Monocytes Absolute Auto 0.8 K/mm3 (0.1-0.6); Neutrophils Absolute Auto 3.2 K/mm3 (1.3-6.7); Neutrophils Percent Auto 57.9 % (45.5-73.1); Platelet Count Result 377 k/mm3 (150-375); Red Blood Count 4.35 M/mm3 (4.2-5.4); Red Cell Distribution Width 19.2 % (11.5-14.5); White Blood Count 5.5 K/mm3 (4.5-10.0)
[2021-04-14 01:13] LABS: Lactic Acid Reflex 1.1 mmol/L (0.7-2.1)
--- NOTE | 2021-04-14 01:17 | PC.NURSE ---
ERP notified of difference in BP.
[2021-04-14 01:20] LABS: Alanine Aminotransferase 18 U/L (4-35); Albumin Level 4.2 g/dL (3.5-5.1); Alkaline Phosphatase 91 U/L (38-126); Anion Gap 13 mmol/L (8-16); Aspartate Amino Transferase 33 U/L (14-36); Bilirubin,Total 0.4 mg/dL (0.2-1.3); Blood Urea Nitrogen 20 mg/dL (7-17); Calcium 9.3 mg/dL (8.4-10.2); Carbon Dioxide 20 mmol/L (22-30); Chloride 98 mmol/L (98-107); Estimated Glomerular Filt Rate > 60; Glucose 113 mg/dL (65-110); INR 0.8; Magnesium 1.4 mg/dL (1.6-2.3); Potassium 4.2 mmol/L (3.4-5.0); Prothrombin Time 11.3 Seconds (11.1-14.7); Sodium 131 mmol/L (137-145)
[2021-04-14 01:21] LABS: Partial Thromboplastin Time 29.8 SECONDS (22.3-36.8)
[2021-04-14 01:25] LABS: Troponin I < 0.012 ng/mL (0.000-0.034)
[2021-04-14 01:29] LABS: NT Pro B Type Natriuretic Pept 850 pg/mL (5-100)
--- NOTE | 2021-04-14 01:31 | PC.NURSE ---
Patient taken to CT.
[2021-04-14 02:00] LABS: Alveolar/Arterial O2 Gradient 29.9 mmHg; Base Excess ABG -1.3 mEq/l (+/-2.0); Device ROOM AIR; Fractional Inspired Oxygen 21 %; HCO3 ABG 22.6 mEq/l (22.0-26.0); Modified Allen's Test Pass; Oxygen Content ABG 13.7 %vol (16.0-22.0); Oxygen Saturation ABG 95.9 % (95.0-100.0); Oxyhemoglobin 93.9 % THb (90.0-100.0); PCO2 ABG 34.9 mmHg (35.0-45.0); PO2 FiO2 Ratio Arterial Blood 3.71 %; Site Drawn RIGHT RADIAL; Total Hemoglobin 10.3 g/dL (12.0-18.0); pH ABG 7.429 (7.350-7.450)
--- NOTE | 2021-04-14 02:10 | ED.GENADULT ---
HPI - General Adult General Chief complaint: Shortness of Breath/Dyspnea Stated complaint: SOB Time Seen by Provider: 04/14/21 00:36 History of Present Illness HPI narrative: Patient is 66-year-old female presents the emergency department with chief complaint of shortness of breath. Patient states this evening she had sudden onset shortness of breath states that she felt a funny feeling over her body when EMS arrived she was breathing rapidly without evidence of wheezing had a normal pulse ox and noticed that her blood pressure was moderately elevated in the 200s. Patient reported that she felt as though her abdomen is becoming bloated and reports that she has been more anxious than normal. Related Data Home Medications Medication Instructions Recorded Confirmed omeprazole 20 mg capsule,delayed 20 mg PO DAILY 08/28/19 04/01/21 release Allergies Allergy/AdvReac Type Severity Reaction Status Date / Time lisinopril Allergy Severe Swelling Verified 04/01/21 10:15 of Lip/Tongue/Throat Iodinated Contrast Media Allergy Mild Nausea and Verified 04/01/21 10:15 Vomiting iodine Allergy Mild Nausea and Verified 04/01/21 10:15 Vomiting amlodipine AdvReac Mild ankle Verified 04/01/21 10:15 swelling Review of Systems Review of Systems: A 10 system review of systems was completed on the patient and is negative except for what is stated in the HPI. Nursing and ancillary documentation was reviewed. [facility] Past Medical History Medical History Alcoholism Anxiety Depression Dyslipidemia Gastroesophageal reflux disease History of colon polyps Hypertension (~1999) Irritable bowel syndrome Surgical History Surgical History History of cataract extraction (~2018) History of hysterectomy Due to endometriosis History of tubal ligation Family History Family History Grandparent Family history of cardiovascular disease, Onset Age: 76 Father Malignant neoplasm of prostate, Onset Age: 55 Family history of malignant neoplasm of brain, Onset Age: 55 Family history of malignant neoplasm of bone, Onset Age: 55 Mother Family history of congestive heart failure, Onset Age: 76 Hypertension Social History Social History Social History: Surrogate decision maker: Atrie Armentasalbrettsmita, significant other. Code status: Full code. Smoking packs per day: 0.25 Smoking cigarettes per day: 5.0 Years smoked: 13 Smoking pack-years: 3.25 Smoking status: Former smoker Tobacco type: cigarettes Second hand tobacco smoke exposure: No Smoking end date: 09/02/20 Alcohol intake: current Alcohol use details: Longstanding history of alcoholism dating back to the early 80s for which she had inpatient treatment on 2 separate occasions. She does not qualify how much she drinks ?I just do not know how to describe it? but she drinks probably at least a half a bottle of wine a night. Previously she drank 1/3 of a 5th of vodka at night but stopped doing that at the beginning of 2020. Substance use: never Substance use type: does not use Additional living arrangements comments: Lives alone in [place]. She has a daughter who is healthy and lives in [place]. His son committed suicide at age 23. Additional occupation/education comments: Unemployed. Gender identity (if verbalized by the patient): Female Sexual Orientation (if Verbalized by the Patient): Straight or Heterosexual Spiritual care concerns: No Exam Narrative: GENERAL: Well-appearing, well-nourished, and in no acute distress. HEAD: Normocephalic, atraumatic. EYES: PERRLA and EOMI. ENT: Nares clear, no rhinorrhea or epistaxis. Mucous membranes silverio
[2021-04-14 04:13] LABS: Add Urine Microscopic? NO; Appearance Urine Clear (Clear); Bilirubin Urine Negative (Negative); Blood Urine Negative (Negative); Color Urine Colorless (Yellow); Glucose Urine UA Negative (Negative); Ketones Urine Negative (Negative); Leukocyte Esterase Ur Negative LEU/UL (Negative); Nitrate Urine Negative (Negative); Protein Urine Negative (Negative); Urobilinogen Urine Negative mg/dL (<2.0)
[2021-04-14 04:19] LABS: Troponin I < 0.012 ng/mL (0.000-0.034)
[2021-04-14 04:25] LABS: Specific Grav Ur 1.049 (1.001-1.035)
== END 2021-04-14 05:10 | disposition home or self-care (01) ==
PROVIDERS: Emergency Provider Emergency Medicine; PCP Family Medicine
DX: R06.00 Dyspnea, unspecified (principal); E78.5 Hyperlipidemia, unspecified; I10 Essential (primary) hypertension; K58.9 Irritable bowel syndrome, unspecified; K21.9 Gastro-esophageal reflux disease without esophagitis; Z86.010 Personal history of colon polyps; Z98.49 Cataract extraction status, unspecified eye; Z87.891 Personal history of nicotine dependence; F41.9 Anxiety disorder, unspecified; F10.20 Alcohol dependence, uncomplicated
CPT/HCPCS: 36415; 36600; 71275; 74174; 80053; 81003; 82805; 83605; 83735; 83880; 84484; 85025; 85610; 85730; 93005; 99284; J2060; Q9967

== ENCOUNTER 2021-12-19 15:03 | Inpatient (IN) | payer MEDICARE, SELFPAY ==
[2021-12-19] VITALS (26 sets, daily range): BP systolic 137–209; BP diastolic 64–78; PULSE 66–78; RESP 13–20; TEMP 36–36.6; O2SAT 97–100
--- NOTE | ~2021-12-19 | CT_ITS ---
EXAMINATION: CT brain wo con DATE: 12/19/2021 18:58 INDICATION: Dizziness. Headache. TECHNIQUE: Computed tomography (CT) of the head was performed without intravenous contrast. The mA wa s adjusted according to patient size. Iterative reconstruction technique was employed. The dose-lengt h product was 605.33 mGy-cm. COMPARISON: Head CT 10/21/2016, brain MRI 12/05/2020 FINDINGS: There is no intracranial hemorrhage, acute infarction, or abnormal intracranial mass lesion . There are scattered areas of low attenuation in the cerebral white matter, which is within normal l imits for the patient's age. The ventricles are normal in size. There are likely changes of ocular le ns replacement surgeries. There is mild mucosal thickening in the paranasal sinuses. The mastoid air cells are normal. IMPRESSION: 1. Normal aging brain. Reviewed, dictated and finalized at location A. IMPRESSION: 1. Normal aging brain.
--- NOTE | ~2021-12-19 | XR_ITS ---
EXAMINATION: XR chest 2V DATE: 12/19/2021 15:45 INDICATION: Chest pain. TECHNIQUE: Frontal and lateral views of the chest were obtained. COMPARISON: Chest 2 views 12/05/2020, chest CT 04/14/2021 FINDINGS: There is no pneumonia, pleural effusion, or pneumothorax. The heart size is normal. There i s a large hiatal hernia. IMPRESSION: 1. Large hiatal hernia. Reviewed, dictated and finalized at location A. IMPRESSION: 1. Large hiatal hernia.
--- NOTE | 2021-12-19 15:07 | ECG_ITS ---
Measurements Intervals [place] Rate: 67 P: 72 WV: 145 QRS: 61 QRSD: 86 T: 59 QT: 414 QTc: 438 Interpretive Statements SINUS RHYTHM BASELINE ARTIFACT- II, III, AVL, AVF NORMAL ECG Electronically Signed On 12-19-2021 15:32:40 CDT by Ernst Duval D.O.
[2021-12-19 15:29] LABS: Basophils Absolute Auto 0.1 K/mm3 (0.0-0.1); Basophils Percent Auto 0.9 % (0.2-1.2); Eosinophils Absolute Auto 0.2 K/mm3 (0-0.3); Eosinophils Percent Auto 2.6 % (0-4.4); Hematocrit 37.6 % (37.0-47.0); Hemoglobin 12.3 g/dL (12.0-15.0); Immature Granulocyte Absolute 0.01 K/mm3 (0.00-0.031); Immature Granulocyte Percent A 0.2 % (0-0.5); Lymphocytes Absolute Auto 1.32 K/mm3 (0.9-3.2); Lymphocytes Percent Auto 23.1 % (18.3-44.2); Mean Corpuscular HGB Conc 32.7 g/dl (32-36); Mean Corpuscular Hemoglobin 27.6 pg (26-34); Mean Corpuscular Volume 84.5 fl (80-100); Mean Platelet Volume 9.1 fl (7.4-10.4); Monocytes Absolute Auto 0.9 K/mm3 (0.1-0.6); Monocytes Percent Auto 15.9 % (2.6-8.5); Neutrophils Absolute Auto 3.3 K/mm3 (1.3-6.7); Neutrophils Percent Auto 57.3 % (45.5-73.1); Platelet Count Result 378 k/mm3 (150-375); Red Blood Count 4.45 M/mm3 (4.2-5.4); Red Cell Distribution Width 15.8 % (11.5-14.5); White Blood Count 5.7 K/mm3 (4.5-10.0)
[2021-12-19 15:40] LABS: INR 1.1; Prothrombin Time 13.6 Seconds (11.1-14.7)
[2021-12-19 15:41] LABS: Alanine Aminotransferase 14 U/L (6-35); Albumin Level 4.3 g/dL (3.5-5.1); Alkaline Phosphatase 80 U/L (38-126); Anion Gap 11 mmol/L (8-16); Aspartate Amino Transferase 32 U/L (14-36); Bilirubin,Total 0.7 mg/dL (0.2-1.3); Blood Urea Nitrogen 12 mg/dL (7-17); Calcium 8.9 mg/dL (8.4-10.2); Carbon Dioxide 23 mmol/L (22-30); Chloride 92 mmol/L (98-107); Estimated CRCL calculation 48 ml/min; Estimated Glomerular Filt Rate > 60; Glucose 116 mg/dL (65-110); Lipase 89 U/L (23-300); Partial Thromboplastin Time 34.2 SECONDS (22.3-36.8); Potassium 4.3 mmol/L (3.4-5.0); Sodium 126 mmol/L (137-145)
--- NOTE | 2021-12-19 15:42 | ED.DIZZY ---
HPI - Dizziness General Chief Complaint: Dizziness Stated Complaint: HTN AND GEN WEAKNESS Time Seen by Provider: 12/19/21 15:42 Source: patient, EMS and RN notes reviewed Mode of arrival: EMS Limitations: no limitations History of Present Illness HPI Narrative: 66 years old white female came to the emergency room because of dizziness and not feeling well started this morning. Patient was seen by her family physician 2 days ago and her blood pressure was above 200/above 100. Patient on metoprolol 100 mg once a day hydralazine 25 mg 3 times daily. Patient had a new prescription of hydralazine 30 mg 3 times daily. Patient did not get the prescription yet. Patient was told to buy a new blood pressure machine and check her blood pressure 3 times a day. And if she feels any new symptoms like dizziness or headache to go to the emergency room immediately otherwise she will get stroke. Patient blood pressure at home was elevated, patient took her regular medication without any change. Came to the ED by ambulance. Currently feeling okay, blood pressure is 178/76. After talking to her and explaining what is going on, her blood pressure went up to 201/77. History of anxiety and depression, she denies any fever, chills, nausea, vomiting, chest pain, shortness of breath. Patient drinks alcohol daily. Did not drink over the last 2 days for no specific reason. Related Data Home Medications Medication Instructions Recorded Confirmed omeprazole 20 mg capsule,delayed 20 mg PO DAILY 08/28/19 12/17/21 release Allergies Allergy/AdvReac Type Severity Reaction Status Date / Time lisinopril Allergy Severe Swelling Verified 12/19/21 15:10 of Lip/Tongue/Throat Iodinated Contrast Media Allergy Mild Nausea and Verified 12/19/21 15:10 Vomiting iodine Allergy Mild Nausea and Verified 12/19/21 15:10 Vomiting amlodipine AdvReac Mild ankle Verified 12/19/21 15:10 swelling Review of Systems Review of Systems: All systems reviewed & are unremarkable except as noted in HPI and below PMFSH Past Medical History Medical History Alcoholism Anxiety Depression Dyslipidemia Gastroesophageal reflux disease History of colon polyps Hypertension (~1999) Hypogammaglobulinemia Irritable bowel syndrome Loss of teeth due to extraction Surgical History Surgical History History of cataract extraction (~2018) History of hysterectomy (~1990) Due to endometriosis History of tubal ligation (Unknown) Family History Family History Grandparent Family history of cardiovascular disease, Onset Age: 76 Father Malignant neoplasm of prostate, Onset Age: 55 Family history of malignant neoplasm of brain, Onset Age: 55 Family history of malignant neoplasm of bone, Onset Age: 55 Mother Family history of congestive heart failure, Onset Age: 76 Hypertension Social History Social History Social History: Surrogate decision maker: Artie Lynch, significant other. Code status: Full code. Smoking packs per day: 0.25 Smoking cigarettes per day: 5.0 Years smoked: 13 Smoking pack-years: 3.25 Tobacco type: cigarettes Second hand tobacco smoke exposure: No Smoking end date: 09/02/20 Alcohol intake: current Alcohol use details: Longstanding history of alcoholism dating back to the early s for which she had inpatient treatment on 2 separate occasions. She does not qualify how much she drinks ?I just do not know how to describe it? but she drinks probably at least a half a bottle of wine a night. Previously she drank 1/3 of a 5th of vodka at night but stopped doing that at the beginning of 2020. Substance use: never Substance use type: does not use Additional living arrangements
[2021-12-19 15:55] LABS: Troponin I < 0.012 ng/mL (0.000-0.034)
[2021-12-19] MEDS: LORazepam (*CRX) 0.5 MG TABLET 1 MG PO (16:10)
[2021-12-19] MEDS: hydrALAZINE HCL 20 MG/ML VIAL IV PUSH (16:13)
[2021-12-19] MEDS: SODIUM CHLORIDE 0.9% IV 1,000 ML 60 ML IV CONT (17:54)
--- NOTE | 2021-12-19 17:58 | PC.NURSE ---
Pt tells ERP and this nurse that she usually drinks a half bottle of wine daily but hasn't drank for 2 days.
--- NOTE | 2021-12-19 18:30 | PM.IMHP ---
H&P: HPI History of Present Illness Date/Time: 12/19/21 18:30 Chief Complaint: Sudden onset dizziness and headache. Narrative: This is a pleasant 66-year-old female with history of alcohol abuse, hypertension, gastroesophageal reflux disease, and anxiety who presented to the emergency department via EMS from a local store for evaluation of sudden onset of dizziness and headache. She had a routine appointment with her primary care provider a couple of days ago at which time her systolic blood pressure was over 200. Adjustments were made to her antihypertensives and she was instructed to monitor her blood pressures at home. It is my understanding that she bought a blood pressure cuff today and she was out shopping when she suddenly became dizzy (patient reports lightheadedness) with a diffuse frontal headache. Emergency services were called and on arrival to the ER her blood pressure was 209/77. She was given hydralazine 20 mg IV x1 with initial improvement however her blood pressures start to go up again and she was given clonidine 0.1 mg p.o. x1. Her sodium today was 126 and it looks like she has a chronic, mild hyponatremia. Labs were otherwise unremarkable. Due to concerns for possible alcohol withdrawal (patient has not had alcohol in 2 days and reports drinking half a bottle of wine most days), she was given IV lorazepam 1 mg. With further questioning the patient denies ever having signs or symptoms of alcohol withdrawal and in fact she frequently goes to visit her daughter for a week or so at a time and she has never had alcohol withdrawal symptoms (she does not drink around her daughter). At the time my evaluation she is resting comfortably but she is worried about her blood pressure running so high. She denies vertigo, auditory and visual changes, paresthesias, facial droop, dysarthria, dysphagia, flushing, sweats, nausea, vomiting, chest pain, palpitations, and shortness of breath. Review of Systems Review of Systems: Twelve systems were reviewed. No recent cold or flu symptoms. No history of alcohol withdrawal symptoms. No history of seizures. No syncope or near syncope. No recent falls or head trauma. Except as documented, all other systems were reviewed and are negative. [facility] Past Medical History Medical History (Updated 12/19/21 @ 18:42 by Jesusita Cedeño PA-C) Alcoholism Anxiety Depression Dyslipidemia Gastroesophageal reflux disease History of colon polyps Hypertension (~1999) Hypogammaglobulinemia Irritable bowel syndrome Surgical History Surgical History History of cataract extraction (~2018) History of hysterectomy (~1990) Due to endometriosis History of tubal ligation (Unknown) Family History Family History Grandparent Family history of cardiovascular disease, Onset Age: 76 Father Malignant neoplasm of prostate, Onset Age: 55 Family history of malignant neoplasm of brain, Onset Age: 55 Family history of malignant neoplasm of bone, Onset Age: 55 Mother Family history of congestive heart failure, Onset Age: 76 Hypertension Social History Social History (Updated 12/19/21 @ 23:06 by Jesusita Cedeño PA-C) Social History: Surrogate decision maker: Artie Lynch, significant other. Code status: Full code. Smoking packs per day: 0.25 Smoking cigarettes per day: 5.0 Years smoked: 13 Smoking pack-years: 3.25 Smoking status: Former smoker Tobacco type: cigarettes Second hand tobacco smoke exposure: No Smoking end date: 09/02/20 Alcohol intake: current Drinks per week: 7 Alcohol use details: Longstanding history of alcoholism dating back to the early for which she had inpatient treatment on 2 separate occasions. She admits to drinking a half a bottle of wine a night since 2020 but before that she was drinking 1/3 of a 5th of vodka
[2021-12-19] MEDS: THIAMINE HCL INJ 100 MG, FOLIC ACID INJ 1 MG, MULTIVITAMINS-12 INJ VIAL 1 5 ML, MULTIVI... IV CONT (19:08)
[2021-12-19 19:09] LABS: SARS-CoV-2 RNA PCR Negative
--- NOTE | 2021-12-19 19:50 | ADMGEN ---
This patient, Lorie Samuel, was admitted to Medical Room 255-01. Patient/family oriented to hospital policies and general routines including ID bracelet, bed and alarms, visiting hours, pain management, procedures, bathroom and other care routines, personal items, smoking policy, room service/diet, and visiting hours. Information on how to activate the Rapid Response Team has been discussed. Patient/Family are encouraged to report perceived risks to care and to ask questions if they do not understand what they are told or what they should do.
[2021-12-19 20:55] LABS: Troponin I < 0.012 ng/mL (0.000-0.034)
[2021-12-19] MEDS: ACETAMINOPHEN 325 MG TABLET 650 MG PO (20:57)
[2021-12-19 21:50] LABS: Troponin I < 0.012 ng/mL (0.000-0.034)
[2021-12-19 23:08] LABS: Anion Gap 7 mmol/L (8-16); Blood Urea Nitrogen 12 mg/dL (7-17); Calcium 8.4 mg/dL (8.4-10.2); Carbon Dioxide 24 mmol/L (22-30); Chloride 90 mmol/L (98-107); Estimated CRCL calculation 54 ml/min; Estimated Glomerular Filt Rate > 60; Glucose 181 mg/dL (65-110); Magnesium 1.5 mg/dL (1.6-2.3); Potassium 3.9 mmol/L (3.4-5.0); Sodium 121 mmol/L (137-145)
[2021-12-20] VITALS (14 sets, daily range): BP systolic 125–176; BP diastolic 58–76; PULSE 58–92; RESP 16–20; TEMP 35.7–36.9; O2SAT 95–99
[2021-12-20] MEDS: MAGNESIUM SULF 2 GM/WATER 50ML 2 GM/50 ML BAG IVPB (00:44)
[2021-12-20] MEDS: hydrALAZINE HCL 25 MG TABLET PO ×4 (00:44→16:07)
[2021-12-20 01:36] LABS: Sodium Urine Random 97 meq/L
[2021-12-20 01:39] LABS: Sodium 126 mmol/L (137-145)
[2021-12-20 06:42] LABS: Anion Gap 9 mmol/L (8-16); Blood Urea Nitrogen 12 mg/dL (7-17); Calcium 8.2 mg/dL (8.4-10.2); Carbon Dioxide 25 mmol/L (22-30); Chloride 95 mmol/L (98-107); Estimated CRCL calculation 54 ml/min; Estimated Glomerular Filt Rate > 60; Glucose 92 mg/dL (65-110); Potassium 4.1 mmol/L (3.4-5.0); Sodium 129 mmol/L (137-145)
[2021-12-20] MEDS: FLUoxetine HCL 20 MG CAPSULE 60 MG PO (08:31)
[2021-12-20] MEDS: FOLIC ACID 1 MG TABLET PO (08:31)
[2021-12-20] MEDS: THERAPEUTIC MULTIVITAMINS/MINERALS TAB (*BKC) 1 TABLET PO (08:31)
[2021-12-20] MEDS: THIAMINE HCL 100 MG TABLET PO (08:31)
[2021-12-20] MEDS: PANTOPRAZOLE 40 MG TABLET PO (08:32)
[2021-12-20] MEDS: busPIRone HCL 5 MG TABLET PO ×3 (08:32→16:07)
[2021-12-20] MEDS: METOPROLOL SUCCINATE EXT REL 100 MG TABCR PO (08:32)
[2021-12-20 10:15] LABS: Sodium 125 mmol/L (137-145)
[2021-12-20] MEDS: ACETAMINOPHEN 325 MG TABLET 650 MG PO (11:18)
[2021-12-20 12:36] LABS: Magnesium 2.1 mg/dL (1.6-2.3)
[2021-12-20 14:20] LABS: Sodium 123 mmol/L (137-145)
--- NOTE | 2021-12-20 14:51 | PM.IMPN ---
Progress Note: A&P Assessment and Plan (1) Dizziness: Code(s): R42 - Dizziness and giddiness Status: Acute Assessment and Plan: May very well be related to high blood pressure. Dizziness has improved at this time a with improvement in her blood pressures. No focal findings on exam though would consider MRI if symptoms persist. 12/20/2021 interval history: patient is 66-year-old female with history of alcohol abuse hypertension patient had been having elevated blood pressure was seen by her primary care and medication were adjusted and patient was instructed if her blood pressure remains high and has a complains of had a her dizziness go to nearest emergency depart, patient had developed dizziness and elevated blood pressure patient call EMS and upon arrival her blood pressure was marginally elevated 209/77 patient was given hydralazine and clonidine however blood pressure has improved, patient also has history of alcohol abuse in daily drinking however patient states on and off when she goes to visit her daughter for a week or 2, she does not drink and she does not have withdrawal, patient being monitor with CIWA protocol, will continue to monitor, to further evaluate will do cardiac and further recommendation to follow (2) Hypertensive urgency: Code(s): I16.0 - Hypertensive urgency Status: Acute Assessment and Plan: Patient reports that her blood pressures have always been difficult to control. Uncertain why her blood pressures are running higher recently than usual. Continue home medications with most recent adjustments per her primary care provider. (3) Hyponatremia: Code(s): E87.1 - Hypo-osmolality and hyponatremia Status: Acute Assessment and Plan: Acute on chronic hyponatremia, baseline sodium is usually in the low 130s. Probably due to chronic alcohol use and decreased solute intake. She is euvolemic on exam thus will hold on IV fluids and monitor sodium closely. Consider fluid restriction depending on what her sodium does this evening. Patient is also on fluoxetine which could be playing a factor, may need to hold. (4) Alcoholism: Code(s): F10.20 - Alcohol dependence, uncomplicated Status: Acute Assessment and Plan: Patient admits to drinking half a bottle of wine each night. Denies ever having signs or symptoms of alcohol withdrawal. However will initiate CIWA protocol. Subjective Date/time seen: 12/20/21 14:51 Chief Complaint: Sudden onset dizziness and headache. Narrative: This is a pleasant 66-year-old female with history of alcohol abuse, hypertension, gastroesophageal reflux disease, and anxiety who presented to the emergency department via EMS from a local store for evaluation of sudden onset of dizziness and headache. She had a routine appointment with her primary care provider a couple of days ago at which time her systolic blood pressure was over 200. Adjustments were made to her antihypertensives and she was instructed to monitor her blood pressures at home. It is my understanding that she bought a blood pressure cuff today and she was out shopping when she suddenly became dizzy (patient reports lightheadedness) with a diffuse frontal headache. Emergency services were called and on arrival to the ER her blood pressure was 209/77. She was given hydralazine 20 mg IV x1 with initial improvement however her blood pressures start to go up again and she was given clonidine 0.1 mg p.o. x1. Her sodium today was 126 and it looks like she has a chronic, mild hyponatremia. Labs were otherwise unremarkable. Due to concerns for possible alcohol withdrawal (patient has not had alcohol in 2 days and reports drinking half a bottle of wine most days), she was given IV lorazepam 1 mg. With further questioning the patient denies ever having signs or symptoms of alcohol withdrawal and in fact she frequently goes to visit her daughter for a week or so at a time and sh
[2021-12-20 18:18] LABS: Sodium 126 mmol/L (137-145)
[2021-12-20 22:23] LABS: Sodium 126 mmol/L (137-145)
[2021-12-21] VITALS (12 sets, daily range): BP systolic 153–209; BP diastolic 67–90; PULSE 54–73; RESP 14–20; TEMP 36.1–36.7; O2SAT 99–100
[2021-12-21 05:43] LABS: Hematocrit 35.3 % (37.0-47.0); Hemoglobin 11.6 g/dL (12.0-15.0); Mean Corpuscular HGB Conc 32.9 g/dl (32-36); Mean Corpuscular Hemoglobin 27.8 pg (26-34); Mean Corpuscular Volume 84.7 fl (80-100); Platelet Count Result 295 k/mm3 (150-375); Red Blood Count 4.17 M/mm3 (4.2-5.4); Red Cell Distribution Width 15.9 % (11.5-14.5); White Blood Count 4.9 K/mm3 (4.5-10.0)
[2021-12-21 05:47] LABS: Magnesium 1.7 mg/dL (1.6-2.3)
[2021-12-21 08:18] LABS: Anion Gap 5 mmol/L (8-16); Blood Urea Nitrogen 16 mg/dL (7-17); Calcium 8.5 mg/dL (8.4-10.2); Carbon Dioxide 25 mmol/L (22-30); Chloride 92 mmol/L (98-107); Estimated CRCL calculation 48 ml/min; Estimated Glomerular Filt Rate > 60; Glucose 105 mg/dL (65-110); Potassium 4.5 mmol/L (3.4-5.0); Sodium 122 mmol/L (137-145)
[2021-12-21] MEDS: hydrALAZINE HCL 25 MG TABLET PO ×3 (08:55→16:19)
[2021-12-21] MEDS: METOPROLOL SUCCINATE EXT REL 100 MG TABCR PO (08:56)
[2021-12-21] MEDS: hydroCHLOROthiazide 25 MG TABLET PO (08:56)
[2021-12-21] MEDS: FOLIC ACID 1 MG TABLET PO (08:56)
[2021-12-21] MEDS: PANTOPRAZOLE 40 MG TABLET PO (08:56)
[2021-12-21] MEDS: THERAPEUTIC MULTIVITAMINS/MINERALS TAB (*BKC) 1 TABLET PO (08:56)
[2021-12-21] MEDS: busPIRone HCL 5 MG TABLET PO ×3 (08:56→16:19)
[2021-12-21] MEDS: FLUoxetine HCL 20 MG CAPSULE 60 MG PO (08:56)
[2021-12-21] MEDS: chlordiazePOXIDE (*CRX) 10 MG CAPSULE PO ×2 (09:04→20:58)
[2021-12-21] MEDS: THIAMINE HCL 100 MG TABLET PO (10:11)
--- NOTE | 2021-12-21 11:58 | PM.IMPN ---
Progress Note: A&P Assessment and Plan (1) Dizziness: Code(s): R42 - Dizziness and giddiness Status: Acute Assessment and Plan: May very well be related to high blood pressure. Dizziness has improved at this time a with improvement in her blood pressures. No focal findings on exam though would consider MRI if symptoms persist. 12/20/2021 interval history: patient is 66-year-old female with history of alcohol abuse hypertension patient had been having elevated blood pressure was seen by her primary care and medication were adjusted and patient was instructed if her blood pressure remains high and has a complains of had a her dizziness go to nearest emergency depart, patient had developed dizziness and elevated blood pressure patient call EMS and upon arrival her blood pressure was marginally elevated 209/77 patient was given hydralazine and clonidine however blood pressure has improved, patient also has history of alcohol abuse in daily drinking however patient states on and off when she goes to visit her daughter for a week or 2, she does not drink and she does not have withdrawal, patient being monitor with CIWA protocol, will continue to monitor, to further evaluate will do cardiac and further recommendation to follow. 12/21/2021 interval history: patient is 66-year-old female with history of alcohol abuse hypertension patient had been having elevated blood pressure was seen by her primary care and medication were adjusted and patient was instructed if her blood pressure remains high and has a complains of dizziness and THORPE go to nearest emergency depart, patient had developed dizziness, THORPE and elevated blood pressure, patient called EMS and upon arrival her blood pressure was emergently elevated 209/77 patient was given hydralazine and clonidine and blood pressure has improved, today again this morning patient blood pressure was elevated 209/79 and HR of 122 and patient felt anxious however there were no tremors, continued metoprolol succinate 100 mg and hydralazine 25 mg t.i.d. added hydrochlorothiazide 25 mg q.day, was given Librium 10mg PO, blood patient was monitor 2 hours later and it was 177/70 patient flet better, patient also has history of alcohol abuse, daily drinking however patient states on and off when she goes to visit her daughter for a week or 2, she does not drink and she does not have withdrawal, patient being monitor with CIWA protocol, will continue to monitor, to further evaluate will do cardiac ECHO and further recommendation to follow (2) Hypertensive urgency: Code(s): I16.0 - Hypertensive urgency Status: Acute Assessment and Plan: Patient reports that her blood pressures have always been difficult to control. Uncertain why her blood pressures are running higher recently than usual. Continue home medications with most recent adjustments per her primary care provider. (3) Hyponatremia: Code(s): E87.1 - Hypo-osmolality and hyponatremia Status: Acute Assessment and Plan: Acute on chronic hyponatremia, baseline sodium is usually in the low 130s. Probably due to chronic alcohol use and decreased solute intake. She is euvolemic on exam thus will hold on IV fluids and monitor sodium closely. Consider fluid restriction depending on what her sodium does this evening. Patient is also on fluoxetine which could be playing a factor, may need to hold. (4) Alcoholism: Code(s): F10.20 - Alcohol dependence, uncomplicated Status: Acute Assessment and Plan: Patient admits to drinking half a bottle of wine each night. Denies ever having signs or symptoms of alcohol withdrawal. However will initiate CIWA protocol. Subjective Date/time seen: 12/21/21 11:58 12/21/2021 interval history: patient is 66-year-old female with history of alcohol abuse hypertension patient had been having elevated blood pressure was seen by her primary care and medication w
[2021-12-21] MEDS: ACETAMINOPHEN 325 MG TABLET 650 MG PO (20:58)
[2021-12-21 21:31] LABS: Osmolality, Urine 575 mOsm/kg (50-1200)
[2021-12-22] VITALS (15 sets, daily range): BP systolic 135–168; BP diastolic 60–87; PULSE 53–70; RESP 16–20; TEMP 36–36.8; O2SAT 97–99
--- NOTE | 2021-12-22 | ECHO_ITS ---
Patient Info Name: Lorie Samuel Age: 66 years : 1955 Gender: Female Ht: 62 in Wt: 126 lbs BSA: 1.59 m2 HR: 62 bpm BP: 159 / 87 mmHg Heart Rhythm: Sinus Rhythm Technical Quality: Fair Exam Date: 12/22/2021 9:58 AM Exam Location: [facility] Patient Status: Inpatient Admit Date: 12/21/2021 Staff Ordering Physician: Bernadine Townsend MD Receiving Manager: Rubia Song RDCS Attending Provider: Cleveland Monahan MD Exam Type: CA echo doppler color flow Study Info Indications - HTN Complete two-dimensional, color flow and Doppler transthoracic echocardiogram is performed. Summary 1. Complete two-dimensional, color flow and Doppler transthoracic echocardiogram is performed. 2. There is moderate concentric increased left ventricular wall thickness. 3. Left ventricular systolic function is normal, estimated at 65-70%. 4. The left ventricular diastolic function is grade I diastolic dysfunction. 5. Left atrial chamber dimension is mildly enlarged. 6. The mitral valve annulus is moderately calcified. 7. The aortic valve is normal. 8. Compared with examination from December of 2018 the findings are essentially identical. Left Ventricle Left ventricular chamber dimension is normal. Left ventricular systolic function is normal, estimated at 65-70%. There is moderate concentric increased left ventricular wall thickness. The left ventricular diastolic function is grade I diastolic dysfunction. Right Ventricle Right ventricular chamber dimension is normal. Left Atria Left atrial chamber dimension is mildly enlarged. Right Atria Right atrial chamber dimension is normal. Aortic Valve The aortic valve is normal. Pulmonic Valve The pulmonic valve is normal. There is trace pulmonic regurgitation. Mitral Valve The mitral valve has normal leaflets. The mitral valve annulus is moderately calcified. Tricuspid Valve The tricuspid valve leaflets are normal. There is mild tricuspid valve regurgitation. Pericardium/Pleural The pericardium appears normal. Aorta The aortic root size at the sinus of Valsalva is normal. Left Ventricular Outflow Tract Name Value Normal LVOT 2D LVOT Diameter 2.0 cm LVOT Doppler LVOT Peak Gradient 2 mmHg LVOT Mean Gradient 1 mmHg LVOT VTI 19 cm LVOT VTI/AV VTI Ratio 0.7 LVOT Stroke Volume 58 ml LVOT CO 3.6 l/min LVOT CI 2.3 l/min/m2 Pulmonic Valve Name Value Normal PV Doppler PV Peak Gradient 4 mmHg Mitral Valve Name Value Normal
[2021-12-22 06:18] LABS: Mean Corpuscular HGB Conc 33.3 g/dl (32-36); Mean Corpuscular Hemoglobin 27.8 pg (26-34); Mean Corpuscular Volume 83.5 fl (80-100); Mean Platelet Volume 8.9 fl (7.4-10.4); Platelet Count Result 325 k/mm3 (150-375); Red Blood Count 4.67 M/mm3 (4.2-5.4); Red Cell Distribution Width 15.3 % (11.5-14.5); White Blood Count 4.8 K/mm3 (4.5-10.0)
[2021-12-22 06:43] LABS: Anion Gap 8 mmol/L (8-16); Blood Urea Nitrogen 13 mg/dL (7-17); Calcium 8.9 mg/dL (8.4-10.2); Carbon Dioxide 24 mmol/L (22-30); Chloride 87 mmol/L (98-107); Estimated CRCL calculation 62 ml/min; Estimated Glomerular Filt Rate > 60; Glucose 103 mg/dL (65-110); Magnesium 1.6 mg/dL (1.6-2.3); Sodium 119 mmol/L (137-145)
[2021-12-22] MEDS: FLUoxetine HCL 20 MG CAPSULE 60 MG PO (08:32)
[2021-12-22] MEDS: THIAMINE HCL 100 MG TABLET PO (08:33)
[2021-12-22] MEDS: hydrALAZINE HCL 25 MG TABLET PO ×3 (08:33→16:58)
[2021-12-22] MEDS: METOPROLOL SUCCINATE EXT REL 100 MG TABCR PO (08:33)
[2021-12-22] MEDS: busPIRone HCL 5 MG TABLET PO ×3 (08:33→16:58)
[2021-12-22] MEDS: MAGNESIUM OXIDE 400 MG TABLET PO (08:33)
[2021-12-22] MEDS: FOLIC ACID 1 MG TABLET PO (08:33)
[2021-12-22] MEDS: THERAPEUTIC MULTIVITAMINS/MINERALS TAB (*BKC) 1 TABLET PO (08:33)
[2021-12-22] MEDS: PANTOPRAZOLE 40 MG TABLET PO (08:34)
[2021-12-22 10:50] LABS: Sodium 116 mmol/L (137-145)
[2021-12-22] MEDS: SODIUM CHLORIDE 1 GM TABLET PO ×2 (12:55→16:58)
--- NOTE | 2021-12-22 14:41 | PM.IMPN ---
Progress Note: A&P Assessment and Plan (1) Hyponatremia: Code(s): E87.1 - Hypo-osmolality and hyponatremia Status: Acute Assessment and Plan: patient with chronic hyponatremia that, on chart review, has never risen above 133. Sodium was 130 just prior to admission but on admission was 126. Urine sodium levels 97. She was fluid restricted. Sodium was low but stable. Urine sodium was 122 yesterday. It appears that she received hydrochlorothiazide for hypertension. Sodium this morning was 119 and down to 116 on recheck. She was started on sodium tablets. Urine sodium was repeated. Nephrology consulted. TSH was normal just prior to admission. No acute pain complaints. Chest x-ray was clear. CT the brain showed no acute findings. Will go ahead and also hold her fluoxetine at this time given the severity of her hyponatremia. May need to use different antidepressants. Serial sodium levels have been ordered. check cortisol in the morning (2) Dizziness: Code(s): R42 - Dizziness and giddiness Status: Acute Assessment and Plan: Patient presents with complaints of dizziness. Could be related to the elevated blood pressure and/ or low sodium. Blood pressure is better controlled overall. Sodium as mentioned above. Overall her symptoms of dizziness have resolved. Will continue to follow. Consider MRI of the brain if she develops any other further symptoms or signs concerning for CVA. Brain MRI last year did not show any acute findings. (3) Hypertensive urgency: Code(s): I16.0 - Hypertensive urgency Status: Acute Assessment and Plan: The patient's blood pressure was 209/77 on admission. Blood pressure overall has improved. She remains on hydralazine and Toprol. Amlodipine appears to cause ankle edema which is a known side effect and not a true allergy. No Eric inhibitors due to angioedema. Will continue current medications at this time. Continue to adjust medications slowly as needed. (4) Alcoholism: Code(s): F10.20 - Alcohol dependence, uncomplicated Status: Acute Assessment and Plan: Patient admits to drinking half a bottle of wine each night. CIWA scale this been running 0-4 since admission. Continue thiamine and folate. Continue to monitor. She has been educated about the benefits of abstain from alcohol use. (5) Depression: Qualifiers: Depression Type: unspecified Qualified Code(s): F32.9 - Major depressive disorder, single episode, unspecified Code(s): F32.9 - Major depressive disorder, single episode, unspecified Status: Acute Assessment and Plan: Mood stable. We will need to hold her fluoxetine. Continue BuSpar for now. Continue to monitor. (6) DVT prophylaxis: Code(s): Z29.9 - Encounter for prophylactic measures, unspecified Status: Acute Assessment and Plan: Lovenox Subjective Date/time seen: 12/22/21 14:41 Interval history: 66yo female with hx of alcoholism, anxiety/depresion and HTN here for weakness. Assuming care. Chart reviewed. Patient denies any chest pain, shortness of breath or dizziness. Eating well. She has a history of low sodium. She does complain of headache today. She denies any abdominal pain. Nausea or vomiting. She has been up ambulating to the bathroom without difficulty Exam Narrative: AF 98.1 66/68 65 16 97% ra Gen - NARD Chest - Scattered rhonchi otherwise clear. CV - RRR S1/S2 Abd - Soft, NT/ND, Positive BS Ext - No pedal edema Neuro - Alert and oriented. Nonfocal exam. Psych - Nml mood and affect Skin - Warm and dry Objective Data Vital Signs Vital Signs: Vital Signs - 24 hr 12/21/21 16:00 12/21/21 19:22 12/21/21 20:00 Temperature 98.1 F 97.0 F L Pulse Rate 68 65 Pulse Rate [Monitor] Respiratory Rate 14 20 Blood Pressure 193/88 H 180/90 H 160/69 H Pulse Oximetry 99 99 12/22/21 00
[2021-12-22 15:25] LABS: Sodium 120 mmol/L (137-145)
--- NOTE | 2021-12-22 16:04 | PM.CNNEP ---
Assessment and Plan Assessment and plan (1) Hyponatremia: Code(s): E87.1 - Hypo-osmolality and hyponatremia Status: Chronic Assessment and Plan: acute on chronic has been present as far back as 2015 (if not longer) baseline sodium levels runs 127 - 133mmol/L was hospitalized here at [facility] for this issue ~ a year ago as well (November 2020) underwent extensive evaluation at that time (by Dr. Bernabe) - low sodium felt to be secondary to HCTZ and SSRI use treated with combo of fluid restriction, salt tabs, and lasix started on fluid restriction and salt tabs today consider adding low dose lasix depending on trend of sodium levels check TSH and cortisol; follow-up on serum/urine osmolality brain CT negative and SSRI on hold goal of correction is 4 - 6mmol/L in 24 hours (but not to exceed 8mmol/L) follow trend of repeat sodiums (2) HTN (hypertension): Onset Date: ~1999 Qualifiers: Hypertension type: essential hypertension Qualified Code(s): I10 - Essential (primary) hypertension Code(s): I10 - Essential (primary) hypertension Status: Chronic Assessment and Plan: quite elevated on admission better at this time - adjust/titrate medications as tolerated follow trend of hemodynamics (3) Alcoholism: Code(s): F10.20 - Alcohol dependence, uncomplicated Status: Chronic Assessment and Plan: long standing issue/problem monitor for withdrawal (4) Depression: Qualifiers: Depression Type: unspecified Qualified Code(s): F32.9 - Major depressive disorder, single episode, unspecified Code(s): F32.9 - Major depressive disorder, single episode, unspecified Status: Chronic Assessment and Plan: was on prozac this has since been discontinued Will continue to follow. History of Present Illness Reason for Consult Consult date: 12/22/21 Reason for consult: hyponatremia (acute on chronic) Chief Complaint Chief complaint: alcohol withdrawal, hyponatremia, uncontrolled hyp History of Present Illness Narrative: The patient is a 66-year-old female with a past medical history as outlined below who presented to [facility] Emergency room via EMS for evaluation of dizziness and headache. The patient reports that a few days prior to her presentation to the hospital, she saw her primary care physician for routine follow-up of her chronic medical issues and problems. It was noted on that office visit her systolic blood pressure was greater than 200 and adjustments were made to her antihypertensive medications with instructions to monitor blood pressure at home to assess if further medication adjustments would be needed. she was apparently shopping for a new blood pressure cuff on the day of presentation to the ER when she became dizzy /lightheaded in association with the headache. Due to the severity of the symptoms EMS was called and she was subsequently transferred to the emergency room for further evaluation. Workup and evaluation emergency room demonstrated the patient to be in moderate distress secondary to the headache and it was noted that she was hemodynamically stable although her blood pressure was 209/77. She was initially given IV hydralazine with only mild improvement and her blood pressure then started to rebound at which point she was given an oral dose of clonidine. This seemed to help with her blood pressure control. Routine blood tests were done which demonstrated a sodium of 126 with the rest of her other labs being unremarkable. She does have a known history of alcohol abuse and apparently she had not taking any alcohol in the last two days prior to her presentation. There was some concerns that alcohol withdrawal may be partly to blame for the for mention spike in her blood pressure and other symptoms. Given the hyponatremia as well as her poor blood pressure control as well as the concern for
[2021-12-22 16:22] LABS: Creatinine Urine 105.8 mg/dL
[2021-12-22 16:24] LABS: Sodium Urine Random 121 meq/L
[2021-12-22] MEDS: ENOXAPARIN 40 MG/0.4 ML SYRINGE SUB-Q (16:57)
[2021-12-22 19:27] LABS: Sodium 120 mmol/L (137-145)
[2021-12-22] MEDS: ACETAMINOPHEN 325 MG TABLET 650 MG PO (20:32)
[2021-12-22 23:33] LABS: Sodium 118 mmol/L (137-145)
[2021-12-22] MEDS: chlordiazePOXIDE (*CRX) 10 MG CAPSULE PO (23:44)
--- NOTE | 2021-12-22 23:56 | PC.NURSE ---
Q4hr sodium labs completed, next lab draw is 0500 BMP. Jesusita Cedeño aware, no new orders received.
[2021-12-23] VITALS (10 sets, daily range): BP systolic 118–160; BP diastolic 60–90; PULSE 56–78; RESP 18–20; TEMP 36.2–36.7; O2SAT 98–100
[2021-12-23 06:39] LABS: Alanine Aminotransferase 14 U/L (6-35); Alkaline Phosphatase 73 U/L (38-126); Anion Gap 7 mmol/L (8-16); Aspartate Amino Transferase 30 U/L (14-36); Bilirubin,Total 0.4 mg/dL (0.2-1.3); Blood Urea Nitrogen 17 mg/dL (7-17); Calcium 8.9 mg/dL (8.4-10.2); Carbon Dioxide 26 mmol/L (22-30); Chloride 90 mmol/L (98-107); Estimated CRCL calculation 48 ml/min; Estimated Glomerular Filt Rate > 60; Glucose 100 mg/dL (65-110); Magnesium 1.6 mg/dL (1.6-2.3); Phosphorus 4.2 mg/dL (2.5-4.5); Sodium 123 mmol/L (137-145)
[2021-12-23 06:41] LABS: Hematocrit 37.1 % (37.0-47.0); Hemoglobin 12.8 g/dL (12.0-15.0); Mean Corpuscular HGB Conc 34.5 g/dl (32-36); Mean Corpuscular Volume 81.2 fl (80-100); Mean Platelet Volume 9.3 fl (7.4-10.4); Platelet Count Result 350 k/mm3 (150-375); Red Blood Count 4.57 M/mm3 (4.2-5.4); Red Cell Distribution Width 15.2 % (11.5-14.5); White Blood Count 4.2 K/mm3 (4.5-10.0)
--- NOTE | 2021-12-23 07:15 | P.PNNP_ITS ---
Progress Note: A&P Assessment and Plan (1) Hyponatremia: Code(s): E87.1 - Hypo-osmolality and hyponatremia Status: Chronic Assessment and Plan: * acute on chronic * has been present as far back as 2015 (if not longer) * baseline sodium levels runs 127 - 133mmol/L * was hospitalized here at [facility] for this issue ~ a year ago as well (November 2020) * underwent extensive evaluation at that time (by Dr. Bernabe) - low sodium felt to be secondary to HCTZ and SSRI use * treated with combo of fluid restriction, salt tabs, and lasix * She is back on her fluoxetine. * Started on fluid restriction and salt tabs yesterday. * Will add Lasix twice a day with the salt tabs. This will help clear free water. * Cortisol level okay. TSH okay. * Osmolality is pending. * brain CT negative and SSRI on hold * goal of correction is 4 - 6mmol/L in 24 hours (but not to exceed 8mmol/L) * Sodium level up to 123. * Will check another sodium level later today. (2) HTN (hypertension): Onset Date: ~1999 Qualifiers: Hypertension type: essential hypertension Qualified Code(s): I10 - Essential (primary) hypertension Code(s): I10 - Essential (primary) hypertension Status: Chronic Assessment and Plan: * quite elevated on admission * Blood pressure has come down to 130-160. * Will trend this out and adjust meds tomorrow. (3) Alcoholism: Code(s): F10.20 - Alcohol dependence, uncomplicated Status: Chronic Assessment and Plan: * long standing issue/problem * monitor for withdrawal (4) Depression: Qualifiers: Depression Type: unspecified Qualified Code(s): F32.9 - Major depressive disorder, single episode, unspecified Code(s): F32.9 - Major depressive disorder, single episode, unspecified Status: Chronic Assessment and Plan: * was on prozac * this has since been discontinued Subjective Date/time seen: 12/23/21 07:16 Interval history: Patient is feeling better today. No chest pain or shortness of breath. She had okay yesterday. Review of Systems Cardiovascular: Cardiovascular: Reports no additional cardiovascular complaints Respiratory: Respiratory: Reports no additional respiratory complaints Gastrointestinal: Gastrointestinal: Reports no additional gastrointestinal complaints Genitourinary: Genitourinary: Reports no additional female genitourinary complaints Exam Narrative: WDWN in NAD skin no rash head ncat lungs clear cor reg no rub abd BS+ nontender and soft ext no edema. Objective Data Vital Signs Vital Signs: Vital Signs - 24 hr 12/22/21 07:50 12/22/21 08:33 12/22/21 08:36 Temperature Pulse Rate 61 Pulse Rate [Monitor] 61 Respiratory Rate Blood Pressure Pulse Oximetry Oxygen Delivery Room Air 12/22/21 09:21 12/22/21 11:46 12/22/21 08:33 Temperature 36.7 C Pulse Rate 65 61 Pulse Rate [Monitor] Respiratory Rate 16 Blood Pressure 166/68 H Pulse Oximetry 97 97 Oxygen Delivery Room Air Room Air 12/22/21 08:00 12/22/21 12:00 12/22/21 16:00 Temperature Pulse Rate 67 63 70 Pulse Rate [Monitor]
--- NOTE | 2021-12-23 07:15 | PM.PNNEP ---
Progress Note: A&P Assessment and Plan (1) Hyponatremia: Code(s): E87.1 - Hypo-osmolality and hyponatremia Status: Chronic Assessment and Plan: acute on chronic has been present as far back as 2015 (if not longer) baseline sodium levels runs 127 - 133mmol/L was hospitalized here at [facility] for this issue ~ a year ago as well (November 2020) underwent extensive evaluation at that time (by Dr. Bernabe) - low sodium felt to be secondary to HCTZ and SSRI use treated with combo of fluid restriction, salt tabs, and lasix She is back on her fluoxetine. Started on fluid restriction and salt tabs yesterday. Will add Lasix twice a day with the salt tabs. This will help clear free water. Cortisol level okay. TSH okay. Osmolality is pending. brain CT negative and SSRI on hold goal of correction is 4 - 6mmol/L in 24 hours (but not to exceed 8mmol/L) Sodium level up to 123. Will check another sodium level later today. (2) HTN (hypertension): Onset Date: ~1999 Qualifiers: Hypertension type: essential hypertension Qualified Code(s): I10 - Essential (primary) hypertension Code(s): I10 - Essential (primary) hypertension Status: Chronic Assessment and Plan: quite elevated on admission Blood pressure has come down to 130-160. Will trend this out and adjust meds tomorrow. (3) Alcoholism: Code(s): F10.20 - Alcohol dependence, uncomplicated Status: Chronic Assessment and Plan: long standing issue/problem monitor for withdrawal (4) Depression: Qualifiers: Depression Type: unspecified Qualified Code(s): F32.9 - Major depressive disorder, single episode, unspecified Code(s): F32.9 - Major depressive disorder, single episode, unspecified Status: Chronic Assessment and Plan: was on prozac this has since been discontinued Subjective Date/time seen: 12/23/21 07:16 Interval history: Patient is feeling better today. No chest pain or shortness of breath. She had okay yesterday. Review of Systems Cardiovascular: Cardiovascular: Reports no additional cardiovascular complaints Respiratory: Respiratory: Reports no additional respiratory complaints Gastrointestinal: Gastrointestinal: Reports no additional gastrointestinal complaints Genitourinary: Genitourinary: Reports no additional female genitourinary complaints Exam Narrative: WDWN in NAD skin no rash head ncat lungs clear cor reg no rub abd BS+ nontender and soft ext no edema. Objective Data Vital Signs Vital Signs: Vital Signs - 24 hr 12/22/21 07:50 12/22/21 08:33 12/22/21 08:36 Temperature Pulse Rate 61 Pulse Rate [Monitor] 61 Respiratory Rate Blood Pressure Pulse Oximetry Oxygen Delivery Room Air 12/22/21 09:21 12/22/21 11:46 12/22/21 08:33 Temperature 36.7 C Pulse Rate 65 61 Pulse Rate [Monitor] Respiratory Rate 16 Blood Pressure 166/68 H Pulse Oximetry 97 97 Oxygen Delivery Room Air Room Air 12/22/21 08:00 12/22/21 12:00 12/22/21 16:00 Temperature Pulse Rate 67 63 70 Pulse Rate [Monitor] Respiratory Rate Blood Pressure Pulse Oximetry Oxygen Delivery 12/22/21 15:45 12/22/21 18:56 12/22/21 19:58 Temperature 36.7 C 36.5 C Pulse Rate 61 63 61 Pulse Rate [Monitor] Respiratory Rate 16 16 Blood Pressure 135/60 168/72 H Pulse Oximetry 98 97 98 Oxygen Delivery Room Air 12/22/21 21:48 12/22/21 20:00 12/23/21 00:00 Temperature 36.8 C Pulse Rate 60 67 56 L Pulse Rate [Monitor] Respiratory Rate 16 Blood Pressure 138/61 Pulse Oximetry 98 Oxygen Delivery 12/23/21 05:56 12/23/21 04:00 Temperature 36.4 C Pulse Rate 61 57 L Pulse Rate [Monitor] Respiratory Rate 18 Blood Pressure 160/90 H Pulse Oximetry 100 Oxygen Delivery Intake/Output Intake/Output: Intake & Output 12/20/21 12/21/21 12/22/2112/23
[2021-12-23] MEDS: ENOXAPARIN 40 MG/0.4 ML SYRINGE SUB-Q (07:57)
[2021-12-23] MEDS: busPIRone HCL 5 MG TABLET PO ×3 (07:58→16:00)
[2021-12-23] MEDS: hydrALAZINE HCL 25 MG TABLET PO ×3 (07:58→16:00)
[2021-12-23] MEDS: THERAPEUTIC MULTIVITAMINS/MINERALS TAB (*BKC) 1 TABLET PO (07:58)
[2021-12-23] MEDS: MAGNESIUM OXIDE 400 MG TABLET PO (07:58)
[2021-12-23] MEDS: FOLIC ACID 1 MG TABLET PO (07:59)
[2021-12-23] MEDS: PANTOPRAZOLE 40 MG TABLET PO (07:59)
[2021-12-23] MEDS: FUROSEMIDE 20 MG TABLET PO ×2 (07:59→16:00)
[2021-12-23] MEDS: SODIUM CHLORIDE 1 GM TABLET PO ×2 (08:00→16:00)
[2021-12-23] MEDS: METOPROLOL SUCCINATE EXT REL 100 MG TABCR PO (08:00)
[2021-12-23] MEDS: THIAMINE HCL 100 MG TABLET PO (08:00)
--- NOTE | 2021-12-23 12:29 | PM.IMPN ---
Progress Note: A&P Assessment and Plan (1) Hyponatremia: Code(s): E87.1 - Hypo-osmolality and hyponatremia Status: Chronic Assessment and Plan: Patient with chronic hyponatremia that, on chart review, has never risen above 133. Sodium was 130 just prior to admission but on admission was 126. Urine sodium levels 97. She was fluid restricted. Sodium was low but stable. Urine sodium was 122. It appears that she received hydrochlorothiazide for hypertension. Sodium yesterday was 119 and down to 116 on recheck. She was started on sodium tablets. Urine sodium was repeated and was 121 but FENa 0.6%. Nephrology consulted. TSH was normal just prior to admission. Cortisol level normal. No acute pain complaints. Chest x-ray was clear. CT the brain showed no acute findings. We held her fluoxetine at this time given the severity of her hyponatremia. Lasix started. Serial sodium levels have been ordered and are slowly improving. Check UA. Appreciate nephrology input. (2) Dizziness: Code(s): R42 - Dizziness and giddiness Status: Acute Assessment and Plan: Patient presents with complaints of dizziness. Could be related to the elevated blood pressure and/ or low sodium. Blood pressure is better controlled overall. Sodium as mentioned above. Overall her symptoms of dizziness have resolved. Will continue to follow. Okay to increase activity. Stop tele (3) Hypertensive urgency: Code(s): I16.0 - Hypertensive urgency Status: Acute Assessment and Plan: The patient's blood pressure was 209/77 on admission. Blood pressure overall has improved. She remains on hydralazine and Toprol. Amlodipine appears to cause ankle edema which is a known side effect and not a true allergy. No Eric inhibitors due to angioedema. Will continue current medications at this time since BP improved - noncompliance with meds?. Continue to adjust medications slowly as needed. (4) Alcoholism: Code(s): F10.20 - Alcohol dependence, uncomplicated Status: Chronic Assessment and Plan: Patient admits to drinking half a bottle of wine each night. CIWA scale was running 0-4 so this was stopped. Continue thiamine and folate. Continue to monitor. She has been educated about the benefits of abstain from alcohol use. (5) Depression: Qualifiers: Depression Type: unspecified Qualified Code(s): F32.9 - Major depressive disorder, single episode, unspecified Code(s): F32.9 - Major depressive disorder, single episode, unspecified Status: Chronic Assessment and Plan: Mood stable. Continue to hold her fluoxetine. Continue BuSpar for now. Continue to monitor. (6) DVT prophylaxis: Code(s): Z29.9 - Encounter for prophylactic measures, unspecified Status: Acute Assessment and Plan: Lovenox Subjective Date/time seen: 12/23/21 12:29 Interval history: 66yo female with hx of alcoholism, anxiety/depression and HTN here for weakness. No problems overnight. No dizzy spells. Eating well. Walking in the room with assistance. Exam Narrative: AF 97.6 128/69 66 18 100% ra Gen - NARD Chest - CTA bilaterally CV - RRR S1/S2, tele showing no significnat dysrhythmas Abd - Soft, NT/ND, Positive BS Ext - No pedal edema Psych - Nml mood and affect Skin - Warm and dry Objective Data Vital Signs Vital Signs: Vital Signs - 24 hr 12/22/21 16:00 12/22/21 15:45 12/22/21 18:56 Temperature 98.0 F 97.7 F Pulse Rate 70 61 63 Respiratory Rate 16 16 Blood Pressure 135/60 168/72 H Pulse Oximetry 98 97 Oxygen Delivery 12/22/21 19:58 12/22/21 21:48 12/22/21 20:00 Temperature 98.3 F Pulse Rate 61 60 67 Respiratory Rate 16 Blood Pressure 138/61 Pulse Oximetry 98 98 Oxygen Delivery Room Air 12/23/21 00:00 12/23/21 05:56 12/23/21 04:00 Temperature 97.6 F Pulse Rate 56 L 61 57 L Respiratory Rate 18
[2021-12-23 13:48] LABS: Glucose Point of Care 122 mg/dl (65-105)
--- NOTE | 2021-12-23 15:19 | P.CDI_ITS ---
CDI Query Clarification Request 12/19 ER physician documented: Alcohol withdrawal Qualifiers: ?Complication of substance-induced condition:?with unspecified complication? Qualified Code(s):?F10.239 - Alcohol dependence with withdrawal, unspecified ?12/19 Hospitalist documented: Alcoholism: ?Code(s): F10.20 - Alcohol dependence, uncomplicated ?Status:?Acute ?Assessment and Plan: Patient admits to drinking half a bottle of wine each night. Denies ever having signs or symptoms of alcohol withdrawal. However will initiate CIWA protocol. Medications administered include, Thiamine, Folic acid, Ativan Please clarify if diagnosis: (Alcohol withdrawal), is ruled in, ruled out or not determined
[2021-12-23 16:52] LABS: Sodium 124 mmol/L (137-145)
[2021-12-23] MEDS: ACETAMINOPHEN 325 MG TABLET 650 MG PO (17:56)
[2021-12-23] MEDS: MAGNESIUM HYDROXIDE SUSP 30 ML UDC PO (18:03)
[2021-12-24] VITALS (11 sets, daily range): BP systolic 118–167; BP diastolic 51–77; PULSE 58–77; RESP 16–21; TEMP 36.3–37.1; O2SAT 97–100
[2021-12-24] MEDS: ACETAMINOPHEN 325 MG TABLET 650 MG PO ×2 (01:44→21:05)
[2021-12-24 05:53] LABS: Hematocrit 38.4 % (37.0-47.0); Hemoglobin 12.9 g/dL (12.0-15.0); Mean Corpuscular HGB Conc 33.6 g/dl (32-36); Mean Corpuscular Hemoglobin 27.7 pg (26-34); Mean Corpuscular Volume 82.4 fl (80-100); Platelet Count Result 345 k/mm3 (150-375); Red Blood Count 4.66 M/mm3 (4.2-5.4); Red Cell Distribution Width 15.6 % (11.5-14.5); White Blood Count 5.1 K/mm3 (4.5-10.0)
[2021-12-24 06:08] LABS: Albumin Level 4.4 g/dL (3.5-5.1); Anion Gap 6 mmol/L (8-16); Blood Urea Nitrogen 23 mg/dL (7-17); Calcium 8.9 mg/dL (8.4-10.2); Carbon Dioxide 28 mmol/L (22-30); Chloride 88 mmol/L (98-107); Estimated CRCL calculation 48 ml/min; Estimated Glomerular Filt Rate > 60; Glucose 92 mg/dL (65-110); Phosphorus 3.9 mg/dL (2.5-4.5); Potassium 4.3 mmol/L (3.4-5.0); Sodium 122 mmol/L (137-145)
[2021-12-24 07:08] LABS: Appearance Urine Clear (Clear); Bilirubin Urine Negative (Negative); Blood Urine Negative (Negative); Color Urine Yellow (Yellow); Glucose Urine UA Negative (Negative); Ketones Urine Negative (Negative); Leukocyte Esterase Ur Negative LEU/UL (Negative); Nitrate Urine Negative (Negative); Protein Urine Negative (Negative); Urobilinogen Urine 0.2 mg/dL (<2.0)
[2021-12-24 07:09] LABS: Add Urine Microscopic? NO
[2021-12-24] MEDS: METOPROLOL SUCCINATE EXT REL 100 MG TABCR PO (08:14)
[2021-12-24] MEDS: THIAMINE HCL 100 MG TABLET PO (08:14)
[2021-12-24] MEDS: THERAPEUTIC MULTIVITAMINS/MINERALS TAB (*BKC) 1 TABLET PO (08:14)
[2021-12-24] MEDS: SODIUM CHLORIDE 1 GM TABLET PO ×2 (08:14→16:09)
[2021-12-24] MEDS: busPIRone HCL 5 MG TABLET PO ×3 (08:15→16:09)
[2021-12-24] MEDS: ENOXAPARIN 40 MG/0.4 ML SYRINGE SUB-Q (08:15)
[2021-12-24] MEDS: PANTOPRAZOLE 40 MG TABLET PO (08:15)
[2021-12-24] MEDS: hydrALAZINE HCL 25 MG TABLET PO ×3 (08:15→16:11)
[2021-12-24] MEDS: MAGNESIUM OXIDE 400 MG TABLET PO (08:15)
[2021-12-24] MEDS: FUROSEMIDE 20 MG TABLET PO ×2 (08:15→16:09)
[2021-12-24] MEDS: FOLIC ACID 1 MG TABLET PO (08:15)
--- NOTE | 2021-12-24 10:25 | PM.IMPN ---
Progress Note: A&P Assessment and Plan (1) Hyponatremia: Code(s): E87.1 - Hypo-osmolality and hyponatremia Status: Chronic Assessment and Plan: Patient with chronic hyponatremia that, on chart review, has never risen above 133. Sodium was 130 just prior to admission but on admission was 126. Urine sodium levels 97. She was placed on a fluid restricted. Sodium dropped to 116. It appears that she received hydrochlorothiazide for hypertension which was stopped. She was started on sodium tablets. Urine sodium was repeated and was 121 but FENa 0.6%. Nephrology consulted. TSH was normal just prior to admission. Cortisol level normal. No acute pain complaints. Chest x-ray was clear. CT the brain showed no acute findings. UA clear. Fluoxetine remains on hold at this time given the severity of her hyponatremia. Lasix started. Serial sodium levels have been ordered and have improved. Appreciate nephrology input. (2) Dizziness: Code(s): R42 - Dizziness and giddiness Status: Acute Assessment and Plan: Patient presents with complaints of dizziness. Could be related to the elevated blood pressure and/or low sodium. Blood pressure is better controlled overall. orthostatic vital signs normal. Sodium as mentioned above. Overall her symptoms of dizziness wax and wane. Will continue to follow. Increase activity as she tolerates. (3) Hypertensive urgency: Code(s): I16.0 - Hypertensive urgency Status: Acute Assessment and Plan: The patient's blood pressure was 209/77 on admission. Blood pressure overall has improved. She remains on hydralazine and Toprol. Amlodipine appears to cause ankle edema which is a known side effect and not a true allergy. No Eric inhibitors due to angioedema. Will continue current medications at this time since BP improved. Continue to adjust medications as needed. (4) Alcoholism: Code(s): F10.20 - Alcohol dependence, uncomplicated Status: Chronic Assessment and Plan: Patient admits to drinking half a bottle of wine each night. CIWA scale was running 0-4 so this was stopped. Continue thiamine and folate. librium and Ativan prn stopped. Continue to monitor. She has been educated about the benefits of abstain from alcohol use. (5) Depression: Qualifiers: Depression Type: unspecified Qualified Code(s): F32.9 - Major depressive disorder, single episode, unspecified Code(s): F32.9 - Major depressive disorder, single episode, unspecified Status: Chronic Assessment and Plan: Mood stable. She states she does not take BuSpar any longer but it was on her home med list. Continue to hold her fluoxetine. Will continue BuSpar for now. Continue to monitor. (6) DVT prophylaxis: Code(s): Z29.9 - Encounter for prophylactic measures, unspecified Status: Acute Assessment and Plan: Lovenox Subjective Date/time seen: 12/24/21 10:25 Interval history: 66yo female with hx of alcoholism, anxiety/depression and HTN here for weakness. [place] dizzy this morning. Only slept a few hours overnight. Feels anxious this morning. No complaints of chest pain or shortness of breath. She describes the dizziness as feeling lightheaded. She states that she was on BuSpar in the past but has not been on this recently. She has been taking it here since it was on her home med list. Exam Narrative: AF 97.3 137/64 72 21 99% ra Gen - NARD Chest -few basilar rhonchi otherwise clear. CV - RRR S1/S2 Abd - Soft, NT/ND, Positive BS Ext - No pedal edema Psych - Nml mood and affect Skin - Warm and dry Objective Data Vital Signs Vital Signs: Vital Signs - 24 hr 12/23/21 11:59 12/23/21 12:00 12/23/21 14:00 Temperature 97.5 F L Pulse Rate 78 68 Respiratory Rate 18 Blood Pressure 128/69 156/62 H Pulse Oximetry 98 Oxygen Delivery 12/23/21 17:29 12/23/21 22:00 12/23/21 20:00 T
--- NOTE | 2021-12-24 12:47 | PM.PNNEP ---
Progress Note: A&P Assessment and Plan (1) Hyponatremia: Code(s): E87.1 - Hypo-osmolality and hyponatremia Status: Chronic Assessment and Plan: doing better at this time acute on chronic has been present as far back as 2015 (if not longer) baseline sodium levels runs 127 - 133mmol/L was hospitalized here at [facility] for this issue ~ a year ago as well (November 2020) underwent extensive evaluation at that time (by Dr. Bernabe) - low sodium felt to be secondary to HCTZ and SSRI use treated with combo of fluid restriction, salt tabs, and lasix on fluid restriction and salt tabs added lasix twice a day with the salt tabs to help clear free water repeat evaluation noted cortisol level and TSH okay brain CT negative serum/urine osmolality pending goal of correction is 4 - 6mmol/L in 24 hours (but not to exceed 8mmol/L) (2) HTN (hypertension): Onset Date: ~1999 Qualifiers: Hypertension type: essential hypertension Qualified Code(s): I10 - Essential (primary) hypertension Code(s): I10 - Essential (primary) hypertension Status: Chronic Assessment and Plan: quite elevated on admission appears to be doing better at this time follow trend in hemodynamics (3) Alcoholism: Code(s): F10.20 - Alcohol dependence, uncomplicated Status: Chronic Assessment and Plan: long standing issue/problem monitor for withdrawal (4) Depression: Qualifiers: Depression Type: unspecified Qualified Code(s): F32.9 - Major depressive disorder, single episode, unspecified Code(s): F32.9 - Major depressive disorder, single episode, unspecified Status: Chronic Assessment and Plan: was on prozac this has since been discontinued Will continue to follow. Subjective Date/time seen: 12/24/21 12:47 Reports some dizziness/lightheadedness along with anxiety earlier this morning; no other acute issues to report on my visit; no other events/issues overnight or earlier this morning; no apparent distress voiced on my visit. Exam Narrative: General: WD/WN female in NAD Heart: normal S1 and S2; no rub Lungs: clear to auscultation Abdomen: soft, nontender, nondistended, positive bowel sounds Extremities: no cyanosis or clubbing; no edema Skin: warm and dry Objective Data Vital Signs Vital Signs: Vital Signs Temp Pulse Resp BP Pulse Ox O2 Del Method 12/24/21 12:34 120/51 L 12/24/21 09:24 72 137/64 12/24/21 09:22 76 147/58 H 12/24/21 09:20 63 148/58 H 12/24/21 08:17 77 99 Room Air 12/24/21 08:14 77 12/24/21 06:00 36.3 C L 58 L 21 H 167/77 H 100 12/23/21 20:00 60 20 98 Room Air 12/23/21 22:00 36.2 C L 60 20 118/60 98 12/23/21 17:29 36.7 C 20 144/79 H Intake/Output Intake/Output: Intake & Output 12/21/21 12/22/21 12/23/21 12/24/21 23:59 23:59 23:59 23:59 Intake Total 960 1400 1040 600 Output Total 1400 1800 600 Balance -440 -400 1040 0 Meds/Results Medications: Active Medications Generic Name Dose Route Start Last Admin Trade Name Tiffanie PRN Reason Stop Dose Admin Acetaminophen 650 mg 12/19/21 20:40 12/24/21 01:44 Acetaminophen 325 Mg Tablet PO 650 mg Q6H PRN Administration Mild Pain (1-3) or Fever Buspirone HCl 5 mg 12/20/21 09:00 12/24/21 16:09 Buspirone Hcl 5 Mg Tablet PO 5 mg TID DEMI Administration Enoxaparin Sodium 40 mg 12/23/21 09:00 12/24/21 08:15 Enoxaparin 40 Mg/0.4 Ml Syringe SUB-Q 40 mg DAILY DEMI Administration Fluoxetine HCl 60 mg 12/20/21 09:00 12/22/21 08:32 Fluoxetine Hcl 20 Mg Capsule PO 60 mg DAILY DEMI Administration Folic Acid 1 mg 12/20/21 09:00 12/24/21 08:15 Folic Acid 1 Mg Tablet PO 1 mg DAILY DEMI Administration Furosemide 20 mg 12/23/21 09:00 12/24/21 16:09 Furosemide 20 Mg Tablet PO 20 mg BID DEMI Administration Hyd
--- NOTE | 2021-12-24 12:47 | P.PNNP_ITS ---
Progress Note: A&P Assessment and Plan (1) Hyponatremia: Code(s): E87.1 - Hypo-osmolality and hyponatremia Status: Chronic Assessment and Plan: * doing better at this time * acute on chronic * has been present as far back as 2015 (if not longer) * baseline sodium levels runs 127 - 133mmol/L * was hospitalized here at [facility] for this issue ~ a year ago as well (November 2020) * underwent extensive evaluation at that time (by Dr. Bernabe) - low sodium felt to be secondary to HCTZ and SSRI use * treated with combo of fluid restriction, salt tabs, and lasix * on fluid restriction and salt tabs * added lasix twice a day with the salt tabs to help clear free water * repeat evaluation noted * cortisol level and TSH okay * brain CT negative * serum/urine osmolality pending * goal of correction is 4 - 6mmol/L in 24 hours (but not to exceed 8mmol/L) (2) HTN (hypertension): Onset Date: ~1999 Qualifiers: Hypertension type: essential hypertension Qualified Code(s): I10 - Essential (primary) hypertension Code(s): I10 - Essential (primary) hypertension Status: Chronic Assessment and Plan: * quite elevated on admission * appears to be doing better at this time * follow trend in hemodynamics (3) Alcoholism: Code(s): F10.20 - Alcohol dependence, uncomplicated Status: Chronic Assessment and Plan: * long standing issue/problem * monitor for withdrawal (4) Depression: Qualifiers: Depression Type: unspecified Qualified Code(s): F32.9 - Major depressive disorder, single episode, unspecified Code(s): F32.9 - Major depressive disorder, single episode, unspecified Status: Chronic Assessment and Plan: * was on prozac * this has since been discontinued Will continue to follow. Subjective Date/time seen: 12/24/21 12:47 Reports some dizziness/lightheadedness along with anxiety earlier this morning; no other acute issues to report on my visit; no other events/issues overnight or earlier this morning; no apparent distress voiced on my visit. Exam Narrative: General: WD/WN female in NAD Heart: normal S1 and S2; no rub Lungs: clear to auscultation Abdomen: soft, nontender, nondistended, positive bowel sounds Extremities: no cyanosis or clubbing; no edema Skin: warm and dry Objective Data Vital Signs Vital Signs: Vital Signs Temp Pulse Resp BP Pulse Ox O2 Del Method 12/24/21 12:34 120/51 L 12/24/21 09:24 72 137/64 12/24/21 09:22 76 147/58 H 12/24/21 09:20 63 148/58 H 12/24/21 08:17 77 99 Room Air 12/24/21 08:14 77 12/24/21 06:00 36.3 C L 58 L 21 H 167/77 H 100 12/23/21 20:00 60 20 98 Room Air 12/23/21 22:00 36.2 C L 60 20 118/60 98 12/23/21 17:29 36.7 C 20 144/79 H Intake/Output Intake/Output: Intake & Output 12/21/21 12/22/21 12/23/21 12/24/21 23:59 23:59 23:59 23:59 Intake Total 960 1400 1040 600 Output Total 1400 1800 600 Balance -440 -400 1040 0 Meds/Results Medications: Active Medications Generic Name Dose Route Start Last Admin Trade Name Freq PRN Reason Stop
[2021-12-24 16:53] LABS: Sodium 128 mmol/L (137-145)
[2021-12-24] MEDS: LORazepam (*CRX) 0.5 MG TABLET PO (21:07)
[2021-12-25] VITALS (10 sets, daily range): BP systolic 122–153; BP diastolic 53–75; PULSE 60–66; RESP 14–18; TEMP 36.6–36.9; O2SAT 95–99
[2021-12-25 05:33] LABS: Hematocrit 37.4 % (37.0-47.0); Hemoglobin 12.4 g/dL (12.0-15.0); Mean Corpuscular HGB Conc 33.2 g/dl (32-36); Mean Corpuscular Hemoglobin 27.8 pg (26-34); Mean Corpuscular Volume 83.9 fl (80-100); Mean Platelet Volume 8.9 fl (7.4-10.4); Platelet Count Result 313 k/mm3 (150-375); Red Blood Count 4.46 M/mm3 (4.2-5.4); Red Cell Distribution Width 15.5 % (11.5-14.5); White Blood Count 4.1 K/mm3 (4.5-10.0)
[2021-12-25 05:48] LABS: Anion Gap 5 mmol/L (8-16); Blood Urea Nitrogen 25 mg/dL (7-17); Calcium 8.9 mg/dL (8.4-10.2); Carbon Dioxide 28 mmol/L (22-30); Chloride 93 mmol/L (98-107); Estimated CRCL calculation 43 ml/min; Estimated Glomerular Filt Rate > 60; Glucose 93 mg/dL (65-110); Magnesium 1.8 mg/dL (1.6-2.3); Potassium 3.9 mmol/L (3.4-5.0); Sodium 126 mmol/L (137-145)
[2021-12-25] MEDS: ENOXAPARIN 40 MG/0.4 ML SYRINGE SUB-Q (08:01)
[2021-12-25] MEDS: hydrALAZINE HCL 25 MG TABLET PO ×3 (08:02→16:01)
[2021-12-25] MEDS: THERAPEUTIC MULTIVITAMINS/MINERALS TAB (*BKC) 1 TABLET PO (08:02)
[2021-12-25] MEDS: PANTOPRAZOLE 40 MG TABLET PO (08:02)
[2021-12-25] MEDS: METOPROLOL SUCCINATE EXT REL 100 MG TABCR PO (08:02)
[2021-12-25] MEDS: THIAMINE HCL 100 MG TABLET PO (08:02)
[2021-12-25] MEDS: SODIUM CHLORIDE 1 GM TABLET PO ×2 (08:02→16:01)
[2021-12-25] MEDS: FUROSEMIDE 20 MG TABLET PO ×2 (08:02→16:01)
[2021-12-25] MEDS: busPIRone HCL 5 MG TABLET PO ×3 (08:02→16:01)
[2021-12-25] MEDS: MAGNESIUM OXIDE 400 MG TABLET PO (08:02)
[2021-12-25] MEDS: FOLIC ACID 1 MG TABLET PO (08:02)
--- NOTE | 2021-12-25 12:25 | PM.IMPN ---
Progress Note: A&P Assessment and Plan (1) Hyponatremia: Code(s): E87.1 - Hypo-osmolality and hyponatremia Status: Chronic Assessment and Plan: Patient with chronic hyponatremia that, on chart review, has never risen above 133.? Sodium was 130 just prior to admission but was 126 on admission.? Urine sodium levels 97.? She was placed on a fluid restricted. Sodium dropped to 116. It appears that she received hydrochlorothiazide for hypertension which was stopped. She was started on sodium tablets.?Urine sodium was repeated and was 121 but FENa 0.6%. Nephrology consulted. TSH was normal just prior to admission. Cortisol level normal. No acute pain complaints. Chest x-ray was clear.? CT the brain showed no acute findings. UA clear. Fluoxetine remains on hold at this time given the severity of her hyponatremia. Lasix started. Serial sodium levels have been ordered and have improved overall to 126 today. Appreciate nephrology input. (2) Dizziness: Code(s): R42 - Dizziness and giddiness Status: Acute Assessment and Plan: Patient presents with complaints of dizziness. Could be related to the elevated blood pressure and/or low sodium.? Blood pressure is better controlled overall. Her doctor just increased her hydralazine to 25mg TID. Orthostatic vital signs were normal.? Sodium as mentioned above.? Overall her symptoms of dizziness are better today.? Will continue to follow.? Increase activity as she tolerates. (3) Hypertensive urgency: Code(s): I16.0 - Hypertensive urgency Status: Acute Assessment and Plan: The patient's blood pressure was 209/77 on admission.? Blood pressure overall has improved.? She remains on hydralazine and Toprol.?Hydralazine was increased just prior to admission. Amlodipine appears to cause ankle edema which is a known side effect and not a true allergy. No Eric inhibitors due to angioedema.? Will continue current medications at this time since BP improved. Continue to adjust medications as needed. (4) Alcoholism: Code(s): F10.20 - Alcohol dependence, uncomplicated Status: Chronic Assessment and Plan: Patient admits to drinking half a bottle of wine each night.? CIWA scale was running 0-4 so this was stopped. Continue thiamine and folate. Librium and Ativan IV prn stopped. Continue to monitor.? She has been educated about the benefits of abstain from alcohol use. (5) Depression: Qualifiers: Depression Type: unspecified Qualified Code(s): F32.9 - Major depressive disorder, single episode, unspecified Code(s): F32.9 - Major depressive disorder, single episode, unspecified Status: Chronic Assessment and Plan: Mood stable. She states she took BuSpar in the past but no longer takes this; she now states that he doctor recently started this but she has not filled the Rx (which explains why this was on her home med list). Continue BuSpar and continue to hold her fluoxetine. Mood remains stable. Continue to monitor. (6) DVT prophylaxis: Code(s): Z29.9 - Encounter for prophylactic measures, unspecified Status: Acute Assessment and Plan: Lovenox Subjective Date/time seen: 12/25/21 12:25 Interval history: 66yo female with hx of alcoholism, anxiety/depression and HTN here for weakness. Further clarification from patient: she states that her PCP just started her on BuSpar but that she has not filled the Rx yet. Slept well last night. Denies feeling dizzy. No chest pain. No nausea or vomiting. No shortness of breath. Exam Narrative: AF 98.0 129/63 66 14 95% ra Gen - NARD Chest -few basilar rhonchi otherwise clear. CV - RRR S1/S2 Abd - Soft, NT/ND, Positive BS Ext - No pedal edema Psych - Nml mood and affect Skin - Warm and dry Objective Data Vital Signs Vital Signs: Vital Signs - 24 hr 12/24/21 12:34 12/24/21 14:00 12/24/21 16:12 Temperature 98.1 F Pulse
--- NOTE | 2021-12-25 13:12 | PM.PNNEP ---
Progress Note: A&P Assessment and Plan (1) Hyponatremia: Code(s): E87.1 - Hypo-osmolality and hyponatremia Status: Chronic Assessment and Plan: doing better at this time acute on chronic has been present as far back as 2015 (if not longer) baseline sodium levels runs 127 - 133mmol/L was hospitalized here at [facility] for this issue ~ a year ago as well (November 2020) underwent extensive evaluation at that time (by Dr. Bernabe) - low sodium felt to be secondary to HCTZ and SSRI use treated with combo of fluid restriction, salt tabs, and lasix during that hospitalization on fluid restriction and salt tabs added lasix twice a day with the salt tabs to help clear free water repeat evaluation noted cortisol level and TSH okay brain CT negative urine electrolytes non-prerenal serum/urine osmolality pending goal of correction is 4 - 6mmol/L in 24 hours (but not to exceed 8mmol/L) follow trend of repeat sodiums (2) HTN (hypertension): Onset Date: ~1999 Qualifiers: Hypertension type: essential hypertension Qualified Code(s): I10 - Essential (primary) hypertension Code(s): I10 - Essential (primary) hypertension Status: Chronic Assessment and Plan: quite elevated on admission appears to be doing better at this time follow trend in hemodynamics (3) Alcoholism: Code(s): F10.20 - Alcohol dependence, uncomplicated Status: Chronic Assessment and Plan: long standing issue/problem monitor for withdrawal (4) Depression: Qualifiers: Depression Type: unspecified Qualified Code(s): F32.9 - Major depressive disorder, single episode, unspecified Code(s): F32.9 - Major depressive disorder, single episode, unspecified Status: Chronic Assessment and Plan: was on prozac this has since been discontinued Will continue to follow. Subjective Date/time seen: 12/25/21 13:12 Continues to make slow and steady improvement; sodium better but still fluctuating; no further complaints of dizziness at the time of my visit; no apparent distress voiced; no issues/events overnight or earlier this morning. Exam Narrative: General: WD/WN female in NAD Heart: normal S1 and S2; no rub Lungs: clear to auscultation Abdomen: soft, nontender, nondistended, positive bowel sounds Extremities: no cyanosis or clubbing; no edema Skin: warm and dry Objective Data Vital Signs Vital Signs: Vital Signs Temp Pulse Resp BP Pulse Ox O2 Del Method 12/25/21 12:00 129/63 12/25/21 08:00 Room Air 12/25/21 09:51 66 95 Room Air 12/25/21 08:02 60 12/25/21 07:59 60 153/75 H 97 12/25/21 04:44 36.7 C 60 14 145/71 H 99 12/24/21 22:00 37.1 C 60 16 123/56 L 97 12/24/21 20:00 60 16 98 Room Air Intake/Output Intake/Output: Intake & Output 12/22/21 12/23/21 12/24/21 12/25/21 23:59 23:59 23:59 23:59 Intake Total 1400 1040 900 680 Output Total 1800 900 700 Balance -400 1040 0 -20 Meds/Results Medications: Active Medications Generic Name Dose Route Start Last Admin Trade Name Freq PRN Reason Stop Dose Admin Acetaminophen 650 mg 12/19/21 20:40 12/24/21 21:05 Acetaminophen 325 Mg Tablet PO 650 mg Q6H PRN Administration Mild Pain (1-3) or Fever Buspirone HCl 5 mg 12/20/21 09:00 12/25/21 16:01 Buspirone Hcl 5 Mg Tablet PO 5 mg TID DEMI Administration Enoxaparin Sodium 40 mg 12/23/21 09:00 12/25/21 08:01 Enoxaparin 40 Mg/0.4 Ml Syringe SUB-Q 40 mg DAILY DEMI Administration Fluoxetine HCl 60 mg 12/20/21 09:00 12/22/21 08:32 Fluoxetine Hcl 20 Mg Capsule PO 60 mg DAILY DEMI Administration Folic Acid 1 mg 12/20/21 09:00 12/25/21 08:02 Folic Acid 1 Mg Tablet PO 1 mg DAILY DEMI Administration Furosemide 20 mg 12/23/21 09:00 12/25/21 16:01 Furosemide 20 Mg Tablet PO 20 mg BID DEMI Administ
--- NOTE | 2021-12-25 13:12 | P.PNNP_ITS ---
Progress Note: A&P Assessment and Plan (1) Hyponatremia: Code(s): E87.1 - Hypo-osmolality and hyponatremia Status: Chronic Assessment and Plan: * doing better at this time * acute on chronic * has been present as far back as 2015 (if not longer) * baseline sodium levels runs 127 - 133mmol/L * was hospitalized here at [facility] for this issue ~ a year ago as well (November 2020) * underwent extensive evaluation at that time (by Dr. Bernabe) - low sodium felt to be secondary to HCTZ and SSRI use * treated with combo of fluid restriction, salt tabs, and lasix during that hospitalization * on fluid restriction and salt tabs * added lasix twice a day with the salt tabs to help clear free water * repeat evaluation noted * cortisol level and TSH okay * brain CT negative * urine electrolytes non-prerenal * serum/urine osmolality pending * goal of correction is 4 - 6mmol/L in 24 hours (but not to exceed 8mmol/L) * follow trend of repeat sodiums (2) HTN (hypertension): Onset Date: ~1999 Qualifiers: Hypertension type: essential hypertension Qualified Code(s): I10 - Essential (primary) hypertension Code(s): I10 - Essential (primary) hypertension Status: Chronic Assessment and Plan: * quite elevated on admission * appears to be doing better at this time * follow trend in hemodynamics (3) Alcoholism: Code(s): F10.20 - Alcohol dependence, uncomplicated Status: Chronic Assessment and Plan: * long standing issue/problem * monitor for withdrawal (4) Depression: Qualifiers: Depression Type: unspecified Qualified Code(s): F32.9 - Major depressive disorder, single episode, unspecified Code(s): F32.9 - Major depressive disorder, single episode, unspecified Status: Chronic Assessment and Plan: * was on prozac * this has since been discontinued Will continue to follow. Subjective Date/time seen: 12/25/21 13:12 Continues to make slow and steady improvement; sodium better but still fluctuating; no further complaints of dizziness at the time of my visit; no apparent distress voiced; no issues/events overnight or earlier this morning. Exam Narrative: General: WD/WN female in NAD Heart: normal S1 and S2; no rub Lungs: clear to auscultation Abdomen: soft, nontender, nondistended, positive bowel sounds Extremities: no cyanosis or clubbing; no edema Skin: warm and dry Objective Data Vital Signs Vital Signs: Vital Signs Temp Pulse Resp BP Pulse Ox O2 Del Method 12/25/21 12:00 129/63 12/25/21 08:00 Room Air 12/25/21 09:51 66 95 Room Air 12/25/21 08:02 60 12/25/21 07:59 60 153/75 H 97 12/25/21 04:44 36.7 C 60 14 145/71 H 99 12/24/21 22:00 37.1 C 60 16 123/56 L 97 12/24/21 20:00 60 16 98 Room Air Intake/Output Intake/Output: Intake & Output 12/22/21 12/23/21 12/24/21 12/25/21 23:59 23:59 23:59 23:59 Intake Total 1400 1040 900 680 Output Total 1800 900 700 Balance -400 1040 0 -20 Meds/Results Medications: Active Medications Generic Name Dose Route Start Last Admin Trade Name Tiffanie MIMSN
[2021-12-25] MEDS: MAGNESIUM HYDROXIDE SUSP 30 ML UDC PO (18:07)
[2021-12-25] MEDS: ACETAMINOPHEN 325 MG TABLET 650 MG PO (21:20)
[2021-12-25] MEDS: MELATONIN 5 MG TABLET PO (21:22)
[2021-12-26 05:42] LABS: Hematocrit 35.6 % (37.0-47.0); Hemoglobin 12.1 g/dL (12.0-15.0); Mean Corpuscular Hemoglobin 28.2 pg (26-34); Mean Platelet Volume 8.6 fl (7.4-10.4); Platelet Count Result 305 k/mm3 (150-375); Red Blood Count 4.29 M/mm3 (4.2-5.4); Red Cell Distribution Width 15.4 % (11.5-14.5); White Blood Count 4.1 K/mm3 (4.5-10.0)
[2021-12-26 05:54] LABS: Anion Gap 8 mmol/L (8-16); Blood Urea Nitrogen 23 mg/dL (7-17); Calcium 8.8 mg/dL (8.4-10.2); Carbon Dioxide 28 mmol/L (22-30); Chloride 92 mmol/L (98-107); Estimated CRCL calculation 48 ml/min; Estimated Glomerular Filt Rate > 60; Glucose 95 mg/dL (65-110); Potassium 3.9 mmol/L (3.4-5.0); Sodium 128 mmol/L (137-145)
[2021-12-26 06:00] VITALS: BP 140/58; PULSE 58; RESP 20; TEMP 36.1; O2SAT 99
--- NOTE | 2021-12-26 07:50 | PM.DS ---
DS: Admitting Diagnosis Discharge Date 12/26/21 Admitting Diagnosis Weakness DS: Discharge Diagnosis Discharge Diagnosis (1) Hyponatremia: Code(s): E87.1 - Hypo-osmolality and hyponatremia Status: Chronic (2) Dizziness: Code(s): R42 - Dizziness and giddiness Status: Acute (3) Hypertensive urgency: Code(s): I16.0 - Hypertensive urgency Status: Acute (4) Alcoholism: Code(s): F10.20 - Alcohol dependence, uncomplicated Status: Chronic (5) Depression: Qualifiers: Depression Type: unspecified Qualified Code(s): F32.9 - Major depressive disorder, single episode, unspecified Code(s): F32.9 - Major depressive disorder, single episode, unspecified Status: Chronic DS: Summary Hospital Course Reason for hospitalization: 66yo female with hx of alcoholism, anxiety/depression and HTN here for weakness. See H&P for details. Hospital Course: Patient presents with complaints of dizziness and weakness. Patient with chronic hyponatremia that, on chart review, has never risen above 133.? Sodium was 130 just prior to admission but was 126 on admission.? Urine sodium level was 97.? She was placed on a fluid restricted. Sodium dropped to 116. It appears that she received hydrochlorothiazide for hypertension which was stopped. She was started on sodium tablets.?Urine sodium was repeated and was 121 but FENa 0.6%. Nephrology consulted. TSH was normal just prior to admission. Cortisol level normal. No acute pain complaints. Chest x-ray was clear.? CT the brain showed no acute findings. UA clear. Fluoxetine was held given the severity of her hyponatremia. Lasix was started. Serial sodium levels performed and sodium climbed slowly to 128. Appreciate nephrology input. Dizziness could be related to the elevated blood pressure and/or low sodium.? The patient's blood pressure was 209/77 on admission.?Blood pressure became better controlled overall. Her doctor had just increased her hydralazine to 25mg TID which we continued here and no further adjustments were required. Orthostatic vital signs were normal.?Overall her symptoms of dizziness and weakness resolved. She was up walking in the halls. Patient admitted to drinking half a bottle of wine each night.?CIWA protocol ordered and CIWA scale was running 0-4 so this was stopped. She was started on thiamine and folate. Librium prn and Ativan IV prn were available. She was educated about the benefits of abstain from alcohol use. We stopped her Prozac due tot eh hyponatremia. She tolerated this well and her mood remained stable. She was on BuSpar in the past and her doctor recently started back on this prior to admission (but she has not had a chance to have the Rx filled yet). She tolerated the BuSpar well. She denies suicidal or homicidal ideation. Discussed with nephrology. Sodium is 128 but at this time, it appears this is within the patient's baseline. She is clinically stable and felt she could be discharged home with sodium tablets. Abstaining from alcohol is imperative. Will have her follow-up with Nephrology for further testing and treatment for her hyponatremia. Hopefully this will improve with time off the Prozac. Continue BuSpar monotherapy for her depression/anxiety. Patient overall did well and was discharged home on 12/26/2021. Status at Discharge Cognitive/behavioral status at discharge: Stable Time Spent with Patient Time attestation: Total time spent providing and/or coordinating discharge services: 35 minutes Time spent: Greater than 30 minutes Exam Narrative: AF 97.0 140/58 68 20 99% ra Gen - NARD Chest -CTA bilaterally, nml RR CV - RRR S1/S2 Abd - Soft, NT/ND, Positive BS Ext - No pedal edema Psych - Nml mood and affect Skin - Warm and dry DS: Data Data Completed and Pending Labs on day of discharge: Labs from last 24 hours 12/26/21 12/26/21 12/26/21 05:25 05:25 05:24 WBC 4.1 L
[2021-12-26 08:01] VITALS: PULSE 68
[2021-12-26] MEDS: METOPROLOL SUCCINATE EXT REL 100 MG TABCR PO (08:01)
[2021-12-26] MEDS: THERAPEUTIC MULTIVITAMINS/MINERALS TAB (*BKC) 1 TABLET PO (08:01)
[2021-12-26] MEDS: ENOXAPARIN 40 MG/0.4 ML SYRINGE SUB-Q (08:01)
[2021-12-26] MEDS: SODIUM CHLORIDE 1 GM TABLET PO ×2 (08:02→16:45)
[2021-12-26] MEDS: busPIRone HCL 5 MG TABLET PO ×3 (08:02→16:45)
[2021-12-26] MEDS: PANTOPRAZOLE 40 MG TABLET PO (08:02)
[2021-12-26] MEDS: FUROSEMIDE 20 MG TABLET PO ×2 (08:02→16:45)
[2021-12-26] MEDS: MAGNESIUM OXIDE 400 MG TABLET PO (08:02)
[2021-12-26] MEDS: THIAMINE HCL 100 MG TABLET PO (08:02)
[2021-12-26] MEDS: hydrALAZINE HCL 25 MG TABLET PO ×3 (08:02→16:45)
[2021-12-26] MEDS: FOLIC ACID 1 MG TABLET PO (08:03)
[2021-12-26 14:30] VITALS: BP 115/44; PULSE 63; RESP 16; TEMP 36.4; O2SAT 100
== END 2021-12-26 17:20 | disposition home or self-care (01) | DRG 641 ==
LOC: ANHED 17:35 → ANH2MED 18:30
PROVIDERS: Family Medicine; Internal Medicine Nephrology; Physician Assistant; Admitting Provider Chiropractor; Emergency Provider Emergency Medicine; PCP Family Medicine; Visit Provider Internal Medicine
DX: E87.1 Hypo-osmolality and hyponatremia (principal); Z20.822 Contact with and (suspected) exposure to COVID-19; I16.0 Hypertensive urgency; F10.20 Alcohol dependence, uncomplicated; F32.9 Major depressive disorder, single episode, unspecified; F41.9 Anxiety disorder, unspecified; E78.5 Hyperlipidemia, unspecified; K21.9 Gastro-esophageal reflux disease without esophagitis; K58.9 Irritable bowel syndrome, unspecified; Z98.49 Cataract extraction status, unspecified eye; Z90.710 Acquired absence of both cervix and uterus
CPT/HCPCS: 36415; 70450; 71046; 80048; 80053; 80069; 80076; 81003; 81050; 82533; 82570; 82948; 83690; 83735; 83930; 83935; 84100; 84295; 84300; 84484; 85025; 85027; 85610; 85730; 93005; 93306; 96367; 96375; 97161; 97165; 99285; A9270; C9803; G0378; J0360; J1650; J3411; J3475; J7030; U0003; U0005

== ENCOUNTER 2022-01-08 14:53 | Outpatient (CLI) | payer MEDICARE, SELFPAY ==
[2022-01-08 16:09] LABS: Anion Gap 7 mmol/L (8-16); Blood Urea Nitrogen 17 mg/dL (7-17); Carbon Dioxide 25 mmol/L (22-30); Chloride 100 mmol/L (98-107); Estimated Glomerular Filt Rate > 60; Glucose 100 mg/dL (65-110); Potassium 4.4 mmol/L (3.4-5.0); Sodium 132 mmol/L (137-145)
== END 2022-01-08 14:54 | disposition home or self-care (01) ==
LOC: ANHLAB 14:57
PROVIDERS: PCP Family Medicine; Visit Provider Internal Medicine
DX: E87.1 Hypo-osmolality and hyponatremia (principal)
CPT/HCPCS: 36415; 80048

== ENCOUNTER 2022-03-18 04:28 | Emergency (ER) | payer MEDICARE, SELFPAY ==
[2022-03-18] VITALS (20 sets, daily range): BP systolic 138–214; BP diastolic 56–81; PULSE 57–69; RESP 10–22; TEMP 36.6; O2SAT 96–100
--- NOTE | ~2022-03-18 | XR_ITS ---
EXAMINATION: XR chest 2V DATE: 03/18/2022 05:11 INDICATION: Weakness TECHNIQUE: PA and lateral views of the chest were obtained. COMPARISON: Chest radiograph dated 12/19/[address] dated 04/14/2021 FINDINGS: Persistent and mild hyperexpansion of lungs which remain clear with no focal airspace opacities, pulm onary edema, pleural effusion or pneumothorax. There some eventration along the right hemidiaphragm. Arch size is normal. Large hiatal hernia. Moderate thoracolumbar dextroscoliosis with moderate spondy losis. IMPRESSION: 1. No acute cardiopulmonary disease. 2. Large hiatal hernia. Reviewed, dictated and finalized at location A.
--- NOTE | ~2022-03-18 | CT_ITS ---
EXAMINATION: CT brain wo con DATE: 03/18/2022 05:09 INDICATION: Left frontal headache, dizziness and weakness TECHNIQUE: Computed tomography (CT) of the head was performed without intravenous contrast. Sagittal and coronal reconstructions were performed. The mA was adjusted according to patient size. Iterative reconstruction technique was employed. The dose-length product was 605.33 mGy-cm. COMPARISON: head CT dated 12/19/2021 FINDINGS: No acute intracranial hemorrhage, acute infarction or abnormal extra axial fluid collection. There is mild scattered white matter hypoattenuation consistent with chronic small vessel ischemic disease. Ventricles are normal and symmetric. No mass/mass effect. Changes of bilateral intraocular lens repla cement. The orbits, paranasal sinuses and mastoid air cells are normal. IMPRESSION: 1. Normal aging brain. No acute intracranial process. Reviewed, dictated and finalized at location A.
[2022-03-18 04:44] LABS: Glucose Point of Care 98 mg/dl (65-105)
[2022-03-18 04:55] LABS: Basophils Absolute Auto 0.1 K/mm3 (0.0-0.1); Eosinophils Absolute Auto 0.3 K/mm3 (0-0.3); Eosinophils Percent Auto 7.4 % (0-4.4); Hemoglobin 12.4 g/dL (12.0-15.0); Lymphocytes Absolute Auto 1.84 K/mm3 (0.9-3.2); Lymphocytes Percent Auto 40.3 % (18.3-44.2); Mean Corpuscular HGB Conc 31.8 g/dl (32-36); Mean Corpuscular Hemoglobin 27.1 pg (26-34); Mean Corpuscular Volume 85.2 fl (80-100); Mean Platelet Volume 9.5 fl (7.4-10.4); Monocytes Absolute Auto 0.8 K/mm3 (0.1-0.6); Monocytes Percent Auto 18.4 % (2.6-8.5); Neutrophils Absolute Auto 1.5 K/mm3 (1.3-6.7); Neutrophils Percent Auto 31.9 % (45.5-73.1); Platelet Count Result 374 k/mm3 (150-375); Red Blood Count 4.58 M/mm3 (4.2-5.4); Red Cell Distribution Width 16.1 % (11.5-14.5); White Blood Count 4.6 K/mm3 (4.5-10.0)
--- NOTE | 2022-03-18 05:00 | ED.WEAKNESS ---
HPI - Weakness General Chief complaint: Weakness Stated complaint: WEAK,FATIGUED Time Seen by Provider: 03/18/22 04:37 History of Present Illness HPI Narrative: Patient is a 67-year-old female who presents ER with sudden onset dizziness and weakness. Feels like she cannot stand up and like she might fall. No rotational dizziness. She feels like she is too fatigued to get up feels like she would be unsteady due to her dizziness and will be risk of falling due to physical weakness. She has no facial droop or arm drift. No expressive aphasia. Patient felt normal earlier in the evening before going to bed. She has no sudden headache. Her blood pressure is significantly elevated at 214/81 mmHg. Patient reports she takes hydralazine 3 times a day. She has been compliant but has not taken her morning dose. No chest pain or chest pressure. No additional complaints. Related Data Home Medications Medication Instructions Recorded Confirmed omeprazole 20 mg capsule,delayed 20 mg PO DAILY 08/28/19 01/15/22 release Allergies Allergy/AdvReac Type Severity Reaction Status Date / Time lisinopril Allergy Severe Swelling Verified 03/18/22 04:36 of Lip/Tongue/Throat Iodinated Contrast Media Allergy Mild Nausea and Verified 03/18/22 04:36 Vomiting iodine Allergy Mild Nausea and Verified 03/18/22 04:36 Vomiting amlodipine AdvReac Mild ankle Verified 03/18/22 04:36 swelling Review of Systems Review of Systems: All systems reviewed & are unremarkable except as noted in HPI and below Constitutional: Constitutional: Denies chills, Reports fatigue, Denies fever(s) and Reports weakness Eyes: Eyes: Denies change in vision and Denies photophobia ENT: Denies nasal congestion and Denies sore throat Cardiovascular: Cardiovascular: Denies chest pain, Denies rapid heart rate and Denies radiating jaw, neck or arm pain Respiratory: Respiratory: Denies cough and Denies dyspnea Gastrointestinal: Gastrointestinal: Denies abdominal pain, Denies nausea and Denies vomiting Genitourinary: Genitourinary: Denies nocturia and Denies dysuria Neurologic: Denies dizziness, Denies headache(s), Denies focal weakness and Denies numbness PMFSH Past Medical History Medical History Alcoholism Anxiety Depression Dyslipidemia Gastroesophageal reflux disease History of colon polyps Hypogammaglobulinemia Hyponatremia Irritable bowel syndrome Surgical History Surgical History History of cataract extraction (~2018) History of hysterectomy (~1990) Due to endometriosis History of tubal ligation (Unknown) Family History Family History Grandparent Family history of cardiovascular disease, Onset Age: 76 Father Malignant neoplasm of prostate, Onset Age: 55 Family history of malignant neoplasm of brain, Onset Age: 55 Family history of malignant neoplasm of bone, Onset Age: 55 Mother Family history of congestive heart failure, Onset Age: 76 Hypertension Social History Social History Social History: Surrogate decision maker: Artie Lynch, significant other. Code status: Full code. Smoking packs per day: 0.25 Smoking cigarettes per day: 5.0 Years smoked: 13 Smoking pack-years: 3.25 Smoking status: Former smoker Tobacco type: cigarettes Second hand tobacco smoke exposure: No Smoking end date: 09/02/20 Alcohol intake: current Drinks per week: 7 Alcohol use details: Longstanding history of alcoholism dating back to the early for which she had inpatient treatment on 2 separate occasions. She admits to drinking a half a bottle of wine a night since 2020 but before that she was drinking 1/3 of a 5th of vodka each day. Substance use: magdy
[2022-03-18 05:05] LABS: Appearance Urine Clear (Clear); Bilirubin Urine Negative (Negative); Blood Urine Negative (Negative); Color Urine Yellow (Yellow); Glucose Urine UA Negative (Negative); Ketones Urine Negative (Negative); Leukocyte Esterase Ur Trace LEU/UL (Negative); Nitrate Urine Negative (Negative); Protein Urine Negative (Negative); Specific Grav Ur 1.015 (1.001-1.035); Urobilinogen Urine 0.2 mg/dL (<2.0)
[2022-03-18 05:09] LABS: Alanine Aminotransferase 17 U/L (6-35); Albumin Level 4.4 g/dL (3.5-5.1); Alkaline Phosphatase 88 U/L (38-126); Anion Gap 8 mmol/L (8-16); Aspartate Amino Transferase 31 U/L (14-36); Bilirubin,Total 0.5 mg/dL (0.2-1.3); Blood Urea Nitrogen 15 mg/dL (7-17); Calcium 9.5 mg/dL (8.4-10.2); Carbon Dioxide 27 mmol/L (22-30); Chloride 98 mmol/L (98-107); Estimated CRCL calculation 45 ml/min; Estimated Glomerular Filt Rate > 60; Glucose 100 mg/dL (65-110); Potassium 3.9 mmol/L (3.4-5.0); Sodium 133 mmol/L (137-145)
[2022-03-18 05:13] LABS: Mucus Urine Rare /lpf; RBC Urine 0-2 /hpf (0-2); Squamous Epithelial Cell Urine Rare /hpf (Few); WBC Urine 0-3 /hpf
[2022-03-18] MEDS: hydrALAZINE HCL 20 MG/ML VIAL 10 MG IV PUSH (05:14)
[2022-03-18 05:20] LABS: Add Urine Microscopic? YES
[2022-03-18 05:21] LABS: Troponin I < 0.012 ng/mL (0.000-0.034)
--- NOTE | 2022-03-18 07:06 | ECG_ITS ---
Measurements Intervals [place] Rate: 61 P: 60 PA: 145 QRS: 51 QRSD: 83 T: 48 QT: 402 QTc: 407 Interpretive Statements SINUS RHYTHM NORMAL ECG COMPARED TO ECG 12/19/2021 15:10:48 NO SIGNIFICANT CHANGES Electronically Signed On 03-18-2022 10:47:34 CDT by Cipriano Waldron M.D.
== END 2022-03-18 07:38 | disposition home or self-care (01) ==
PROVIDERS: Emergency Provider Emergency Medicine; PCP Family Medicine
DX: F41.9 Anxiety disorder, unspecified (principal); R53.83 Other fatigue; E78.5 Hyperlipidemia, unspecified; K21.9 Gastro-esophageal reflux disease without esophagitis; K58.9 Irritable bowel syndrome, unspecified; F32.A Depression, unspecified; F10.20 Alcohol dependence, uncomplicated; Z86.010 Personal history of colon polyps; Z98.49 Cataract extraction status, unspecified eye; Z90.710 Acquired absence of both cervix and uterus; Z87.891 Personal history of nicotine dependence
CPT/HCPCS: 36415; 70450; 71046; 80053; 81001; 82948; 84484; 85025; 93005; 96374; 99284; J0360

== ENCOUNTER 2022-05-09 11:09 | Outpatient (CLI) | payer MEDICARE, SELFPAY ==
[2022-05-09 11:26] LABS: Basophils Absolute Auto 0.1 K/mm3 (0.0-0.1); Basophils Percent Auto 1.1 % (0.2-1.2); Eosinophils Absolute Auto 0.2 K/mm3 (0-0.3); Eosinophils Percent Auto 3.6 % (0-4.4); Hematocrit 38.6 % (37.0-47.0); Hemoglobin 12.3 g/dL (12.0-15.0); Immature Granulocyte Absolute 0.01 K/mm3 (0.00-0.031); Immature Granulocyte Percent A 0.2 % (0-0.5); Lymphocytes Absolute Auto 1.61 K/mm3 (0.9-3.2); Lymphocytes Percent Auto 25.5 % (18.3-44.2); Mean Corpuscular HGB Conc 31.9 g/dl (32-36); Mean Corpuscular Hemoglobin 27.5 pg (26-34); Mean Corpuscular Volume 86.2 fl (80-100); Mean Platelet Volume 9.3 fl (7.4-10.4); Monocytes Absolute Auto 0.6 K/mm3 (0.1-0.6); Monocytes Percent Auto 10.1 % (2.6-8.5); Neutrophils Absolute Auto 3.8 K/mm3 (1.3-6.7); Neutrophils Percent Auto 59.5 % (45.5-73.1); Platelet Count Result 357 k/mm3 (150-375); Red Blood Count 4.48 M/mm3 (4.2-5.4); Red Cell Distribution Width 16.3 % (11.5-14.5); White Blood Count 6.3 K/mm3 (4.5-10.0)
[2022-05-09 11:53] LABS: Alanine Aminotransferase 17 U/L (6-35); Albumin Level 4.7 g/dL (3.5-5.1); Alkaline Phosphatase 101 U/L (38-126); Anion Gap 9 mmol/L (8-16); Aspartate Amino Transferase 29 U/L (14-36); Bilirubin,Total 0.5 mg/dL (0.2-1.3); Blood Urea Nitrogen 25 mg/dL (7-17); Calcium 9.3 mg/dL (8.4-10.2); Carbon Dioxide 25 mmol/L (22-30); Chloride 102 mmol/L (98-107); Cholesterol 304 mg/dL (0-200); Estimated Glomerular Filt Rate > 60; Glucose 92 mg/dL (65-110); HDL Direct 64 mg/dL; Potassium 4.3 mmol/L (3.4-5.0); Sodium 136 mmol/L (137-145); Triglycerides 131 mg/dL (<150)
[2022-05-09 12:05] LABS: LDL Cholesterol Direct 206 mg/dL
[2022-05-09 12:12] LABS: Vitamin D 25 Hydroxy 32.2 ng/mL
== END 2022-05-09 11:10 | disposition home or self-care (01) ==
PROVIDERS: PCP Family Medicine; Visit Provider Family Medicine
DX: K58.9 Irritable bowel syndrome, unspecified (principal); F41.9 Anxiety disorder, unspecified; F32.9 Major depressive disorder, single episode, unspecified; E55.9 Vitamin D deficiency, unspecified; I10 Essential (primary) hypertension; E53.8 Deficiency of other specified B group vitamins; E78.5 Hyperlipidemia, unspecified; D50.8 Other iron deficiency anemias
CPT/HCPCS: 36415; 80053; 80061; 82306; 82607; 84443; 85025

== ENCOUNTER 2022-05-17 19:41 | Emergency (ER) | payer MEDICARE, SELFPAY ==
--- NOTE | 2022-05-17 20:04 | PC.NURSE ---
patient walked out, reporting that she does not want to wait any longer.
== END 2022-05-17 20:43 | disposition left against medical advice (07) ==
LOC: ANHED 20:07
PROVIDERS: PCP Family Medicine
DX: Z53.21 Procedure and treatment not carried out due to patient leaving prior to being seen by health care provider (principal)
CPT/HCPCS: 99199

== ENCOUNTER 2022-06-05 15:20 | Outpatient (CLI) | payer MEDICARE, SELFPAY ==
[2022-06-05 16:20] LABS: Creatinine Urine 85.3 mg/dL
[2022-06-05 16:22] LABS: Total Protein Urine Random < 5 mg/dL; Ur Ttl Prot Creatinine Ratio < 0.06 mg/mg (0-0.20)
[2022-06-05 16:26] LABS: Albumin Level 4.7 g/dL (3.5-5.1); Anion Gap 12 mmol/L (8-16); Blood Urea Nitrogen 18 mg/dL (7-17); Calcium 9.1 mg/dL (8.4-10.2); Carbon Dioxide 29 mmol/L (22-30); Chloride 98 mmol/L (98-107); Estimated Glomerular Filt Rate > 60; Glucose 89 mg/dL (65-110); Phosphorus 3.8 mg/dL (2.5-4.5); Potassium 4.1 mmol/L (3.4-5.0); Sodium 139 mmol/L (137-145)
[2022-06-05 16:35] LABS: Add Urine Microscopic? YES; Appearance Urine Clear (Clear); Bilirubin Urine Negative (Negative); Blood Urine Negative (Negative); Color Urine Yellow (Yellow); Glucose Urine UA Negative (Negative); Ketones Urine Trace mg/dL (Negative); Leukocyte Esterase Ur Negative LEU/UL (NEGATIVE); Nitrate Urine Negative (Negative); Protein Urine Negative (Negative); pH Urine 6.5 (5.0-9.0)
[2022-06-05 16:40] LABS: RBC Urine 0-2 /hpf (0-2); WBC Urine 0-3 /hpf (0-3)
== END 2022-06-05 15:21 | disposition home or self-care (01) ==
PROVIDERS: PCP Family Medicine; Visit Provider Internal Medicine Nephrology
DX: E87.1 Hypo-osmolality and hyponatremia (principal); R80.1 Persistent proteinuria, unspecified
CPT/HCPCS: 36415; 80069; 81001; 82570; 84156

== ENCOUNTER 2022-07-17 11:39 | Emergency (ER) | payer MEDICARE, SELFPAY ==
--- NOTE | ~2022-07-17 | XR_ITS ---
EXAMINATION: XR chest 1V portable INDICATION: Heart palpitations TECHNIQUE: Portable AP chest at 1507 hours COMPARISON: 03/18/2022 FINDINGS: The lungs are hyperinflated but free of acute opacities. No pleural effusion or pneumothora x. There is a large hiatal hernia. The heart size is normal. Thoracolumbar dextroscoliosis is noted. IMPRESSION: 1. Hyperinflation without acute cardiopulmonary abnormality. 2. Large hiatal hernia. Reviewed, dictated and finalized at location A. T MANAGER
[2022-07-17 11:58] VITALS: BP 139/46; PULSE 85; RESP 18; TEMP 36.6; O2SAT 100
--- NOTE | 2022-07-17 14:45 | ED.ANXIETY ---
HPI - Anxiety General Chief Complaint: Anxiety Stated Complaint: anxiety, last night, heart palpitations Time Seen by Provider: 07/17/22 14:31 History of Present Illness HPI narrative: Patient is a 67-year-old female with a history of hypertension, GERD, depression, anxiety presenting with palpitations. Patient states that she was taken off of her Prozac approximately 7 months ago due to hyponatremia. Since that time she has struggled with worsening depression and anxiety. States that for several months she has been waking up in the middle of the night with chest tightness, palpitations, and anxiety. States that she saw her primary doctor who advised that she see psychiatry. She had an appointment with a psychiatric nursing aide over the phone recently and was started on BuSpar but states that it has not really been helping. States that she again woke up in the middle of the night with 1 of these episodes. Currently, she states that she feels fine. States that she feels anxious but she always does. Denies numbness or weakness, fevers or chills, chest pain, difficulty breathing, cough, abdominal pain, nausea or vomiting, diarrhea, leg swelling. Patient is concerned that she has had stinging in both of her breasts and she is unable to get a mammogram until next month. Related Data Home Medications Medication Instructions Recorded Confirmed omeprazole 20 mg capsule,delayed 20 mg PO DAILY 08/28/19 06/11/22 release Allergies Allergy/AdvReac Type Severity Reaction Status Date / Time lisinopril Allergy Severe Swelling Verified 07/17/22 11:42 of Lip/Tongue/Throat Iodinated Contrast Media Allergy Mild Nausea and Verified 07/17/22 11:42 Vomiting iodine Allergy Mild Nausea and Verified 07/17/22 11:42 Vomiting amlodipine AdvReac Mild ankle Verified 07/17/22 11:42 swelling Review of Systems Review of Systems: All systems reviewed & are unremarkable except as noted in HPI and below PMFSH Past Medical History Medical History Alcoholism Anxiety Depression Dyslipidemia Gastroesophageal reflux disease History of colon polyps Hypogammaglobulinemia Hyponatremia Irritable bowel syndrome Surgical History Surgical History History of cataract extraction (~2018) History of hysterectomy (~1990) Due to endometriosis History of tubal ligation (Unknown) Family History Family History Grandparent Family history of cardiovascular disease, Onset Age: 76 Father Malignant neoplasm of prostate, Onset Age: 55 Family history of malignant neoplasm of brain, Onset Age: 55 Family history of malignant neoplasm of bone, Onset Age: 55 Mother Family history of congestive heart failure, Onset Age: 76 Hypertension Social History Social History Social History: Surrogate decision maker: Artie Lynch, significant other. Code status: Full code. Smoking packs per day: 0.25 Smoking cigarettes per day: 5.0 Years smoked: 13 Smoking pack-years: 3.25 Smoking status: Former smoker Tobacco type: cigarettes Second hand tobacco smoke exposure: No Smoking end date: 09/02/20 Alcohol intake: current Drinks per week: 7 Alcohol use details: Longstanding history of alcoholism dating back to the early s for which she had inpatient treatment on 2 separate occasions. She admits to drinking a half a bottle of wine a night since 2020 but before that she was drinking 1/3 of a 5th of vodka each day. Substance use: current Substance use type: does not use Lack of Transportation: No Lack of Food: Never True Current Housing: I Have Housing Concerned About Future Housing: No Difficulty Paying Gas/Electric Bills: No Difficulty Paying for Meds: No Curr
--- NOTE | 2022-07-17 14:59 | ECG_ITS ---
Measurements Intervals [place] Rate: 0 P: [place]: 0 QRS: QRSD: 0 T: QT: 0 QTc: 0 Interpretive Statements SINUS ARRHYTHMIA NORMAL ELECTROCARDIOGRAM COMPARED TO ECG 03/18/2022 04:42:35 NO SIGNIFICANT CHANGES Electronically Signed On 07-17-2022 16:48:51 [employer]ON FORMING MACHINE OPERATOR by Cleveland Potter M.D.
[2022-07-17 15:29] LABS: Add Urine Microscopic? NO; Appearance Urine Clear (Clear); Bilirubin Urine Negative (Negative); Blood Urine Negative (Negative); Color Urine Light Yellow (Yellow); Glucose Urine UA Negative (Negative); Ketones Urine Negative (Negative); Leukocyte Esterase Ur Negative LEU/UL (Negative); Nitrate Urine Negative (Negative); Protein Urine Negative (Negative); Urobilinogen Urine 0.2 mg/dL (<2.0); pH Urine 6.5 (5.0-9.0)
[2022-07-17 15:39] LABS: Alanine Aminotransferase 18 U/L (6-35); Albumin Level 4.8 g/dL (3.5-5.1); Alkaline Phosphatase 87 U/L (38-126); Anion Gap 8 mmol/L (8-16); Aspartate Amino Transferase 32 U/L (14-36); Bilirubin,Total 0.5 mg/dL (0.2-1.3); Blood Urea Nitrogen 25 mg/dL (7-17); Calcium 9.2 mg/dL (8.4-10.2); Carbon Dioxide 29 mmol/L (22-30); Chloride 98 mmol/L (98-107); Estimated CRCL calculation 45 ml/min; Estimated Glomerular Filt Rate > 60; Glucose 80 mg/dL (65-110); Magnesium 1.9 mg/dL (1.6-2.3); Potassium 3.9 mmol/L (3.4-5.0); Sodium 135 mmol/L (137-145)
[2022-07-17 15:51] LABS: Troponin I < 0.012 ng/mL (0.000-0.034)
[2022-07-17 16:12] LABS: Basophils Percent Auto 0.5 % (0.2-1.2); Eosinophils Absolute Auto 0.1 K/mm3 (0-0.3); Eosinophils Percent Auto 2.2 % (0-4.4); Hematocrit 37.4 % (37.0-47.0); Hemoglobin 12.3 g/dL (12.0-15.0); Immature Granulocyte Absolute 0.02 K/mm3 (0.00-0.031); Immature Granulocyte Percent A 0.4 % (0-0.5); Lymphocytes Absolute Auto 1.29 K/mm3 (0.9-3.2); Lymphocytes Percent Auto 23.6 % (18.3-44.2); Mean Corpuscular HGB Conc 32.9 g/dl (32-36); Mean Corpuscular Hemoglobin 28.7 pg (26-34); Mean Corpuscular Volume 87.4 fl (80-100); Mean Platelet Volume 9.7 fl (7.4-10.4); Monocytes Absolute Auto 0.6 K/mm3 (0.1-0.6); Monocytes Percent Auto 11.2 % (2.6-8.5); Neutrophils Absolute Auto 3.4 K/mm3 (1.3-6.7); Neutrophils Percent Auto 62.1 % (45.5-73.1); Platelet Count Result 332 k/mm3 (150-375); Red Blood Count 4.28 M/mm3 (4.2-5.4); Red Cell Distribution Width 17.7 % (11.5-14.5); White Blood Count 5.5 K/mm3 (4.5-10.0)
[2022-07-17 18:00] VITALS: PULSE 75; RESP 16; O2SAT 96
== END 2022-07-17 18:01 | disposition home or self-care (01) ==
PROVIDERS: Emergency Provider Emergency Medicine; PCP Family Medicine
DX: F41.9 Anxiety disorder, unspecified (principal); R00.2 Palpitations; F32.A Depression, unspecified; E78.5 Hyperlipidemia, unspecified; K21.9 Gastro-esophageal reflux disease without esophagitis; K58.9 Irritable bowel syndrome, unspecified; Z86.010 Personal history of colon polyps; Z98.49 Cataract extraction status, unspecified eye; Z90.710 Acquired absence of both cervix and uterus; Z87.891 Personal history of nicotine dependence
CPT/HCPCS: 36415; 71045; 80053; 81003; 83735; 84443; 84484; 85025; 93005; 99283

== ENCOUNTER 2022-08-04 14:50 | Outpatient (CLI) | payer MEDICARE, SELFPAY ==
[2022-08-04 21:49] LABS: Alanine Aminotransferase 16 U/L (6-35); Albumin Level 4.7 g/dL (3.5-5.1); Alkaline Phosphatase 102 U/L (38-126); Anion Gap 7 mmol/L (8-16); Aspartate Amino Transferase 40 U/L (14-36); Bilirubin,Total 0.7 mg/dL (0.2-1.3); Blood Urea Nitrogen 18 mg/dL (7-17); Calcium 9.3 mg/dL (8.4-10.2); Carbon Dioxide 30 mmol/L (22-30); Chloride 89 mmol/L (98-107); Estimated Glomerular Filt Rate > 60; Glucose 92 mg/dL (65-110); Potassium 4.9 mmol/L (3.4-5.0); Sodium 126 mmol/L (137-145)
== END 2022-08-04 14:51 | disposition home or self-care (01) ==
PROVIDERS: PCP Family Medicine; Visit Provider Family Medicine
DX: I10 Essential (primary) hypertension (principal)
CPT/HCPCS: 36415; 80053

== ENCOUNTER 2022-08-06 08:43 | Outpatient (CLI) | payer MEDICARE, SELFPAY ==
--- NOTE | ~2022-08-06 | DEXA_ITS ---
Bone Density Report Name: KATHY HSU Age: 67 Sex: Female Ethnicity: White Date of : 1955 Indication: postmenopausal; screening for osteoporosis; height loss; hysterectomy; Referring Provider: KELSEY DANIEL Study: Bone densitometry was performed. Exam Date: August 06, 2022 Accession number: [id number] Bone Density: Region BMD T-score Z-score Classification AP Spine(L1, L2, L4) 0.861 -1.6 0.4 Osteopenia Femoral Neck (Left) 0.511 -3.0 -1.4 Osteoporosis Total Hip (Left) 0.679 -2.2 -0.8 Osteopenia Femoral Neck (Right) 0.488 -3.3 -1.6 Osteoporosis Total Hip (Right) 0.645 -2.4 -1.1 Osteopenia Total Hip Mean 0.662 -2.3 -1.0 Osteopenia World Health Organization criteria for BMD impression classify patients as: Normal (T-score at or above -1.0), Osteopenia (T-score between -1.0 and -2.5), or Osteoporosis (T-score at or below -2.5). 10-year Fracture Risk: FRAX not reported because: Some T-score for Spine Total or Hip Total or Femoral Neck at or below -2.5 Clinical Information Provided by Patient: Has the following medical conditions: Hysterectomy Patient maximum height was 63 Menopause Age: 35 No regular weight bearing exercise Onset of menses at age 12 Number of children 2 Impression: The patient has osteoporosis, based on the Right Femoral Neck T-score. Discussion: INCREASED RISK OF FRACTURE. BONE DENSITY IS UNDESIRABLY LOW AT ONE OR MORE SKELETAL SITES, CONSISTENT WITH POSTMENOPAUSAL OSTEOPOROSIS. This patient's lowest T-score meets the World Health Organization's (WHO) criteria for osteoporosis at one or more sites (T-score -2.5 or below). In untreated patients, the risk of osteoporotic fracture increases approximately two-fold for each 1.0 SD decrease in T-score. Low bone density is not the only risk factor for fracture; also consider factors such as patient's age, frailty or poor health, risk of falling, risk of injury, previous osteoporotic fracture, family history of osteoporosis, cigarette smoking, low body weight, etc. Not everyone with low bone mineral density has osteoporosis; osteomalacia and other metabolic bone disorders should also be considered. Patients who have osteoporosis should be evaluated for specific diseases and conditions (secondary causes) that may cause or contribute to bone loss. The [place] [employer]ocrinologists (AACE) and National Osteoporosis Foundation (NOF) recommend pharmacologic intervention for all postmenopausal women whose T-score is in this range. The patient should follow a healthful lifestyle (good nutrition with adequate calcium and vitamin D, and appropriate weight-bearing exercise). Follow-Up: Consider a repeat BMD and Vertebral Fracture Assessment (VFA) exam in 2 years or sooner if medically necessary, to reassess this pat
--- NOTE | ~2022-08-06 | MM_ITS ---
EXAMINATION: MM screening galen BI w jacinto HISTORY: Screening mammogram TECHNIQUE: Craniocaudal and mediolateral oblique 3-D tomosynthesis images were obtained and synthetic 2-D images were generated. CAD analysis was submitted and interpreted. COMPARISON: 12/29/2012 BREAST PARENCHYMAL COMPOSITION: The breasts are heterogeneously dense, which may obscure small masses . FINDINGS: No suspicious mass, calcification, or architectural distortion are identified in either gerri ast to suggest malignancy. There has been no suspicious interval change. IMPRESSION: 1. No mammographic evidence of malignancy. 2. Recommend routine screening mammography in one year. BI-RADS Category 1: Negative Reviewed, dictated and finalized at location A. O ENGINEER
== END 2022-08-06 08:44 | disposition home or self-care (01) ==
PROVIDERS: PCP Family Medicine; Visit Provider Family Medicine
DX: Z12.31 Encounter for screening mammogram for malignant neoplasm of breast (principal); Z78.0 Asymptomatic menopausal state; M85.88 Other specified disorders of bone density and structure, other site; M81.0 Age-related osteoporosis without current pathological fracture; M85.852 Other specified disorders of bone density and structure, left thigh; M85.851 Other specified disorders of bone density and structure, right thigh
CPT/HCPCS: 77063; 77067; 77080

== ENCOUNTER 2022-10-08 16:58 | Outpatient (CLI) | payer MEDICARE, SELFPAY ==
[2022-10-08 18:01] LABS: Influenza A QL RT-PCR Negative (Negative); Influenza B QL RT-PCR Negative (Negative); RSV RNA, RT-PCR Negative (Negative); SARS-CoV-2 RNA PCR Negative
== END 2022-10-08 16:59 | disposition home or self-care (01) ==
LOC: ANHLAB 16:59
PROVIDERS: PCP Family Medicine; Visit Provider Family Medicine
DX: J06.9 Acute upper respiratory infection, unspecified (principal); Z20.822 Contact with and (suspected) exposure to COVID-19
CPT/HCPCS: 87637

== ENCOUNTER 2023-05-08 11:34 | Emergency (ER) | payer MEDICARE, SELFPAY ==
--- NOTE | ~2023-05-08 | CT_ITS ---
EXAMINATION: CT abdomen pelvis wo con DATE: 05/08/2023 12:44 INDICATION: Left flank pain. Nausea. TECHNIQUE: Computed tomography (CT) of the abdomen and pelvis was performed without intravenous contr ast. Automated exposure control and iterative reconstruction technique were employed. Exam dose: 215 .63 mGy-cm total exam DLP. COMPARISON: 04/14/2021 CTA chest abdomen pelvis FINDINGS: Mild atelectasis and chronic discoid scarring at the lung bases. Large sliding hiatal hernia. The liver, gallbladder, bile ducts, spleen, pancreas, pancreatic duct, and adrenal glands and kidneys are unremarkable on this limited noncontrast examination. No urinary tract calculus or hydroureteron ephrosis. The urinary bladder is unremarkable. Status post hysterectomy. There is extensive calcification of the abdominal aorta and at the origins of the renal arteries. No abdominal aortic aneurysm. No intraperitoneal or retroperitoneal or pelvic mass lesion or adenopathy or ascites is detected. No bowel obstruction or intraperitoneal free air is detected. Prominent anterior wedge compression fracture deformity of L3. Diffuse osteopenia. IMPRESSION: No urinary tract calculus or hydroureteronephrosis Large hiatal hernia Prominent L3 compression fracture deformity Reviewed, dictated and finalized at Location A. Reviewed, dictated and finalized at location A.
[2023-05-08 11:29] VITALS: BP 218/81; PULSE 77; RESP 16; TEMP 37.2; O2SAT 99
[2023-05-08 12:06] LABS: Basophils Absolute Auto 0.1 K/mm3 (0.0-0.1); Eosinophils Percent Auto 0.3 % (0-4.4); Hematocrit 38.5 % (37.0-47.0); Hemoglobin 12.8 g/dL (12.0-15.0); Immature Granulocyte Absolute 0.01 K/mm3 (0.00-0.031); Immature Granulocyte Percent A 0.2 % (0-0.5); Lymphocytes Absolute Auto 1.24 K/mm3 (0.9-3.2); Lymphocytes Percent Auto 19.9 % (18.3-44.2); Mean Corpuscular HGB Conc 33.2 g/dl (32-36); Mean Corpuscular Hemoglobin 29.8 pg (26-34); Mean Corpuscular Volume 89.7 fl (80-100); Mean Platelet Volume 9.8 fl (7.4-10.4); Monocytes Absolute Auto 0.5 K/mm3 (0.1-0.6); Monocytes Percent Auto 7.7 % (2.6-8.5); Neutrophils Absolute Auto 4.4 K/mm3 (1.3-6.7); Neutrophils Percent Auto 70.9 % (45.5-73.1); Platelet Count Result 320 k/mm3 (150-375); Red Blood Count 4.29 M/mm3 (4.2-5.4); Red Cell Distribution Width 17.8 % (11.5-14.5); White Blood Count 6.2 K/mm3 (4.5-10.0)
--- NOTE | 2023-05-08 12:20 | ED.ABDPAIN ---
HPI - Abdominal Pain General Chief Complaint: Back Pain/Injury Stated Complaint: L sided flank pain Time Seen by Provider: 05/08/23 11:57 History of Present Illness HPI narrative: Patient is a 68-year-old female with a history of hypertension presenting with flank pain. Patient states that since this morning she has had severe left flank pain. States that it feels like her kidney. Reports some nausea earlier but no vomiting. No diarrhea or constipation. No dysuria or hematuria. Denies further complaints. Related Data Home Medications Medication Instructions Recorded Confirmed omeprazole 20 mg capsule,delayed 20 mg PO DAILY 08/28/19 08/04/22 release fluoxetine 20 mg capsule 20 mg PO QPM 08/04/22 08/04/22 Allergies Allergy/AdvReac Type Severity Reaction Status Date / Time lisinopril Allergy Severe Swelling Verified 08/04/22 13:40 of Lip/Tongue/Throat amlodipine AdvReac Mild ankle Verified 08/04/22 13:40 swelling Iodinated Contrast Media AdvReac Mild Nausea and Verified 05/08/23 12:22 Vomiting iodine AdvReac Mild Nausea and Verified 05/08/23 12:22 Vomiting Review of Systems Review of Systems: All systems reviewed & are unremarkable except as noted in HPI and below PMFSH Past Medical History Medical History Alcoholism Anxiety Depression Dyslipidemia Gastroesophageal reflux disease History of colon polyps Hypogammaglobulinemia Hyponatremia Irritable bowel syndrome Surgical History Surgical History History of cataract extraction (~2018) History of hysterectomy (~1990) Due to endometriosis History of tubal ligation (Unknown) Family History Family History Grandparent Family history of cardiovascular disease, Onset Age: 76 Father Malignant neoplasm of prostate, Onset Age: 55 Family history of malignant neoplasm of brain, Onset Age: 55 Family history of malignant neoplasm of bone, Onset Age: 55 Mother Family history of congestive heart failure, Onset Age: 76 Hypertension Social History Social History Social History: Surrogate decision maker: Artie Lynch, significant other. Code status: Full code. Smoking packs per day: 0.25 Smoking cigarettes per day: 5.0 Years smoked: 13 Smoking pack-years: 3.25 Smoking status: Former smoker Tobacco type: cigarettes Second hand tobacco smoke exposure: No Smoking end date: 09/02/20 Alcohol intake: current Drinks per week: 7 Alcohol use details: Longstanding history of alcoholism dating back to the early for which she had inpatient treatment on 2 separate occasions. She admits to drinking a half a bottle of wine a night since 2020 but before that she was drinking 1/3 of a 5th of vodka each day. Substance use: current Substance use type: does not use Lack of Transportation: No Lack of Food: Never True Current Housing: I Have Housing Concerned About Future Housing: No Difficulty Paying Gas/Electric Bills: No Difficulty Paying for Meds: No Currently Unemployed: No Education: High School Diploma/GED Difficulty w/ Childcare or Family Care: No Living arrangements: alone Additional living arrangements comments: Lives alone in [place]. She has a daughter who is healthy and lives in [place]. Her son committed suicide at age 23. Occupation/Education: retired Spiritual care concerns: No Exam Narrative: GENERAL: Uncomfortable appearing, nontoxic, pleasant and cooperative HEAD: Normocephalic, atraumatic. EYES: PERRLA and EOMI. ENT: Grossly unremarkable NECK: Supple. CHEST: Clear to auscultation. No respiratory distress. HEART: Regular rate and rhythm ABDOMEN: Soft, nontender, nondistended; + left CVA tender
--- NOTE | 2023-05-08 12:38 | PC.NURSE ---
pt taken to CT at this time
[2023-05-08] MEDS: HYDROmorphone HCL INJ (*CRX) 1 MG/ML SYR 0.5 MG IV PUSH (12:54)
[2023-05-08] MEDS: SODIUM CHLORIDE 0.9% IV 1,000 ML 999 ML IV CONT (12:55)
[2023-05-08 13:14] LABS: Alanine Aminotransferase 16 U/L (6-35); Albumin Level 4.4 g/dL (3.5-5.1); Alkaline Phosphatase 80 U/L (38-126); Anion Gap 10 mmol/L (8-16); Aspartate Amino Transferase 28 U/L (14-36); Bilirubin,Total 0.7 mg/dL (0.2-1.3); Blood Urea Nitrogen 13 mg/dL (7-17); Carbon Dioxide 26 mmol/L (22-30); Chloride 99 mmol/L (98-107); Estimated CRCL calculation 50 ml/min; Estimated Glomerular Filt Rate > 60; Glucose 117 mg/dL (65-110); Potassium 4.1 mmol/L (3.4-5.0); Sodium 135 mmol/L (137-145)
[2023-05-08 13:40] VITALS: BP 207/81; PULSE 86; RESP 18; O2SAT 96
[2023-05-08 13:45] LABS: Appearance Urine Clear (Clear); Bilirubin Urine Negative (Negative); Blood Urine Negative (Negative); Color Urine Yellow (Yellow); Glucose Urine UA Negative (Negative); Ketones Urine 1+ mg/dL (Negative); Leukocyte Esterase Ur Negative LEU/UL (Negative); Nitrate Urine Negative (Negative); Protein Urine 1+ mg/dL (Negative); Urobilinogen Urine 0.2 mg/dL (<2.0); pH Urine 7.5 (5.0-9.0)
[2023-05-08 13:51] LABS: Bacteria Urine None Seen /hpf; Non Pathogenic Casts 0-2; RBC Urine 0-2 /hpf (0-2); Squamous Epithelial Cell Urine None seen /hpf (Few); WBC Urine 0-5 /hpf
[2023-05-08 13:54] LABS: Add Urine Microscopic? YES
[2023-05-08] MEDS: oxyCODONE/ACETAMINOPHEN (*CRX) 5-325 MG TABLET 1 TABLET PO (14:35)
[2023-05-08 14:54] LABS: Lipase 50 U/L (23-300)
[2023-05-08 15:53] VITALS: BP 195/83; PULSE 89; RESP 16; O2SAT 98
== END 2023-05-08 15:55 | disposition home or self-care (01) ==
PROVIDERS: Emergency Medicine; Emergency Provider Emergency Medicine; PCP Internal Medicine
DX: M48.56XA Collapsed vertebra, not elsewhere classified, lumbar region, initial encounter for fracture (principal); I10 Essential (primary) hypertension; E78.5 Hyperlipidemia, unspecified; K21.9 Gastro-esophageal reflux disease without esophagitis; K58.9 Irritable bowel syndrome, unspecified; K44.9 Diaphragmatic hernia without obstruction or gangrene; F32.A Depression, unspecified; F41.9 Anxiety disorder, unspecified; Z86.010 Personal history of colon polyps; F10.20 Alcohol dependence, uncomplicated; Z87.891 Personal history of nicotine dependence; Z90.710 Acquired absence of both cervix and uterus; Z98.49 Cataract extraction status, unspecified eye
CPT/HCPCS: 36415; 74176; 80053; 81001; 83690; 85025; 96361; 96374; 99284; A9270; J1170; J7030

== ENCOUNTER 2024-05-12 10:21 | Emergency (ER) | payer MEDICARE, SELFPAY ==
--- NOTE | ~2024-05-12 | CT_ITS ---
History: Headache and back pain PROCEDURE: CT head without contrast. COMPARISON: 03/18/2022 TECHNIQUE: Axial imaging of the head performed from the skull base to the vertex without IV contrast. Sagittal a nd coronal reformations obtained. DLP: 681 mGy-cm FINDINGS: The ventricles are prominent, but equal in degree of sulcal prominence. Findings consistent with a senescent brain. There is no mass, mass effect or midline shift. There is no abnormal extra-axial fluid collection or intracranial hemorrhage. Punctate calcifications within the basal ganglia, unchanged from 2021. Visualized paranasal sinuses are clear. The mastoid air cells are well aerated. There are no acute or subacute skull fractures. Impression: Stable CT examination of the head, without acute intracranial hemorrhage or suspicious mass effect. Reviewed, dictated and finalized at location A. Impression: Stable CT examination of the head, without acute intracranial hemorrhage or saji picious mass effect.
[2024-05-12 10:24] VITALS: BP 200/92; PULSE 81; RESP 18; TEMP 36.6; O2SAT 99
--- NOTE | 2024-05-12 10:47 | ECG_ITS ---
Test Date: 2024-05-12 11:15:16 Measurements Intervals [place] Rate: 72 P: 49 IA: 149 QRS: 34 QRSD: 86 T: 58 QT: 371 QTc: 409 Interpretive Statements SINUS RHYTHM NORMAL ELECTROCARDIOGRAM No previous ECG available for comparison Electronically Signed On 05-12-2024 12:38:04 CDT by Cleveland Potter M.D.
--- NOTE | 2024-05-12 11:02 | ED.HA ---
HPI - Headache General Chief Complaint: Headache Stated Complaint: HEADACHE/BACKACHE Time Seen by Provider: 05/12/24 10:27 History of Present Illness HPI Narrative: 69-year-old female presents with continued frontal headache and elevated blood pressure. Patient states this has been going on for 3 weeks. Patient's saw her PCP earlier this week and was diagnosed with elevated blood pressure. Patient was started on metoprolol and hydralazine. Patient states she has been taking as directed but is still having elevated blood pressure. Patient denies chest pain, shortness of breath, or abdominal pain. Patient denies any other complaints. Onset (ago): week(s) (2) Related Data Home Medications Medication Instructions Recorded Confirmed omeprazole 20 mg capsule,delayed 20 mg PO DAILY 08/28/19 08/04/22 release fluoxetine 20 mg capsule 20 mg PO QPM 08/04/22 08/04/22 Allergies Allergy/AdvReac Type Severity Reaction Status Date / Time lisinopril Allergy Severe Swelling Verified 08/04/22 13:40 of Lip/Tongue/Throat amlodipine AdvReac Mild ankle Verified 08/04/22 13:40 swelling Iodinated Contrast Media AdvReac Mild Nausea and Verified 05/08/23 12:22 Vomiting iodine AdvReac Mild Nausea and Verified 05/08/23 12:22 Vomiting Review of Systems Review of Systems: A 10 system review of systems was completed on the patient and is negative except for what is stated in the HPI. Nursing and ancillary documentation was reviewed. Headache PMFSH Past Medical History Medical History Alcoholism Anxiety Depression Dyslipidemia Gastroesophageal reflux disease History of colon polyps Hypogammaglobulinemia Hyponatremia Irritable bowel syndrome Surgical History Surgical History History of cataract extraction (~2018) History of hysterectomy (~1990) Due to endometriosis History of tubal ligation (Unknown) Family History Family History Grandparent Family history of cardiovascular disease, Onset Age: 76 Father Malignant neoplasm of prostate, Onset Age: 55 Family history of malignant neoplasm of brain, Onset Age: 55 Family history of malignant neoplasm of bone, Onset Age: 55 Mother Family history of congestive heart failure, Onset Age: 76 Hypertension Social History Social History Social History: Surrogate decision maker: Artierodney Lynch, significant other. Code status: Full code. Smoking packs per day: 0.25 Smoking cigarettes per day: 5.0 Years smoked: 13 Smoking pack-years: 3.25 Smoking status: Former smoker Tobacco type: cigarettes Second hand tobacco smoke exposure: No Smoking end date: 09/02/20 Alcohol intake: current Drinks per week: 7 Alcohol use details: Longstanding history of alcoholism dating back to the early for which she had inpatient treatment on 2 separate occasions. She admits to drinking a half a bottle of wine a night since 2020 but before that she was drinking 1/3 of a 5th of vodka each day. Substance use: current Substance use type: does not use Lack of Transportation: No Lack of Food: Never True Current Housing: I Have Housing Concerned About Future Housing: No Difficulty Paying Gas/Electric Bills: No Difficulty Paying for Meds: No Currently Unemployed: No Education: High School Diploma/GED Difficulty w/ Childcare or Family Care: No Living arrangements: alone Additional living arrangements comments: Lives alone in [place]. She has a daughter who is healthy and lives in [place]. Her son committed suicide at age 23. Occupation/Education: retired Spiritual care concerns: No Exam Narrative: GENERAL: Well-appearing, well-nourished, and in
[2024-05-12 11:48] VITALS: BP 181/81; PULSE 72; RESP 16; RESP 17; O2SAT 96; O2SAT 97
[2024-05-12] MEDS: hydrALAZINE HCL 20 MG/ML VIAL 10 MG IV PUSH (11:56)
[2024-05-12 12:00] VITALS: BP 171/78; PULSE 71; RESP 14; O2SAT 95
[2024-05-12 12:01] VITALS: BP 177/75; PULSE 72; RESP 14; O2SAT 96
[2024-05-12 12:09] LABS: Basophils Percent Auto 0.8 % (0.2-1.2); Eosinophils Absolute Auto 0.1 K/mm3 (0-0.3); Eosinophils Percent Auto 2.3 % (0-4.4); Hematocrit 39.6 % (37.0-47.0); Immature Granulocyte Absolute 0.01 K/mm3 (0.00-0.031); Immature Granulocyte Percent A 0.2 % (0-0.5); Lymphocytes Absolute Auto 0.69 K/mm3 (0.9-3.2); Lymphocytes Percent Auto 13.1 % (18.3-44.2); Mean Corpuscular HGB Conc 32.8 g/dl (32-36); Mean Corpuscular Hemoglobin 30.5 pg (26-34); Mean Platelet Volume 9.2 fl (7.4-10.4); Monocytes Absolute Auto 0.9 K/mm3 (0.1-0.6); Monocytes Percent Auto 17.3 % (2.6-8.5); Neutrophils Absolute Auto 3.5 K/mm3 (1.3-6.7); Neutrophils Percent Auto 66.3 % (45.5-73.1); Platelet Count Result 362 k/mm3 (150-375); Red Blood Count 4.26 M/mm3 (4.2-5.4); Red Cell Distribution Width 14.9 % (11.5-14.5); White Blood Count 5.3 K/mm3 (4.5-10.0)
[2024-05-12 12:16] VITALS: BP 162/71; PULSE 70; RESP 15; O2SAT 96
[2024-05-12 12:24] LABS: Alanine Aminotransferase 14 U/L (6-35); Albumin Level 4.2 g/dL (3.5-5.1); Alkaline Phosphatase 70 U/L (38-126); Anion Gap 7 mmol/L (4-12); Aspartate Amino Transferase 28 U/L (14-36); Bilirubin,Total 0.4 mg/dL (0.2-1.3); Blood Urea Nitrogen 15 mg/dL (7-17); Calcium 9.1 mg/dL (8.4-10.2); Carbon Dioxide 27 mmol/L (22-30); Chloride 95 mmol/L (98-107); Estimated CRCL calculation 49 ml/min; Estimated Glomerular Filt Rate > 60; Glucose 101 mg/dL (65-110); Magnesium 1.7 mg/dL (1.6-2.3); Potassium 3.9 mmol/L (3.4-5.0); Sodium 129 mmol/L (137-145)
[2024-05-12] MEDS: SODIUM CHLORIDE 0.9% IV 1,000 ML 999 ML IV CONT (12:32)
[2024-05-12 12:36] LABS: Troponin I < 0.012 ng/mL (0.000-0.034)
[2024-05-12 13:55] VITALS: PULSE 68; RESP 18; O2SAT 96
== END 2024-05-12 13:57 | disposition home or self-care (01) ==
PROVIDERS: Emergency Provider Nurse Practitioner Family; PCP Internal Medicine
DX: I10 Essential (primary) hypertension (principal); E87.1 Hypo-osmolality and hyponatremia; F41.8 Other specified anxiety disorders; K21.9 Gastro-esophageal reflux disease without esophagitis; F10.20 Alcohol dependence, uncomplicated; Z87.891 Personal history of nicotine dependence
CPT/HCPCS: 36415; 70450; 80053; 83735; 84484; 85025; 93005; 96361; 96374; 99284; J0360; J7030

== ENCOUNTER 2024-10-12 10:40 | Outpatient (CLI) | payer MEDICARE, SELFPAY ==
--- NOTE | ~2024-10-12 | XR_ITS ---
Right Hand Technique: PA, oblique, and lateral views were obtained. Clinical History: Pain Findings: No acute fracture or dislocation is seen. Osseous alignment is anatomic. There is advanced degenerative change of the second and third MCP joints. There is moderate degenerative change of the first CMC joint. There is moderate degenerative change of the second DIP joint. Soft tissues are unre markable. Impression: Polyarticular osteoarthritis, as detailed above. Reviewed, dictated and finalized at location M. Impression: Polyarticular osteoarthritis, as detailed above.
--- NOTE | ~2024-10-12 | XR_ITS ---
Left Hand Technique: PA, oblique, and lateral views were obtained. Clinical History: Swelling Findings: No acute fracture or dislocation is seen. Osseous alignment is anatomic. There is advanced degenerative change of the second, third, and fourth MCP joints. There is advanced degenerative saldivar e of the first CMC joint and interphalangeal joint of the thumb. There are scattered mild to moderate degenerative changes of the intercarpal joints. There are minimal degenerative changes interphalange al joints of the remaining fingers. Soft tissues are unremarkable. Impression: Polyarticular osteoarthritis, as detailed above. Reviewed, dictated and finalized at location M. Impression: Polyarticular osteoarthritis, as detailed above.
--- OUTSIDE RECORDS SUMMARY | 2024-10-12 12:28 | XMS_ITS | Patient Health Record ---
Author Organization [facility] Address [address] [place] [address] Care Team Providers Care Stone Splitter Name Role Phone Suárez Faustino Primary Care Provider [phone] [facility], [facility] Unavailable U navailable Allergies Allergen (clinical drug ingredient) Drug/Non Drug Allergy documented on EMR Reaction Allergy Type Onset Date Status lisinopril Lisinopril anaphylaxis Drug Allergy Act peg amlodipine Norvasc Swelling of feet Drug Allergy Active Reason For Referral No Information Medications Medication SIG (Take, Route, Frequency, Duration) Notes Start Date End Date Status OLANZapine 2.5 MG 1 tablet at bedtime Orally Once a day for 30 days 08/10/2022 Active buPROPion HCl ER (XL) 150 MG 1 tablet in the morning Orally Once a day for 30 days 08/10/2022 Active busPIRone HCl 10 MG TAKE 1 TABLET BY MOUTH TWICE DAILY for 30 Active PriLOSEC OTC 20 MG 1 tablet 30 minutes before morning meal Orally Once a day Active Lopressor 100 MG 1 tablet with food Orally Twice a day Once a day Active busPIRone HCl 5 MG 1 tablet Orally Twic e a day takes three times a day Active hydrALAZINE HCl 50 MG 1 tablet with food Orally Three times a day Active Social History Tobacco Use: Social History Observation Description Date Details (start date - stop date) Never Smoker NA - NA Dont use, Tobacco Use/Smoking Question Answer Notes Are you a nonsmoker Problems Problem Type SNOMED Code ICD Code Onset Dates Problem Status W/U Status Risk Notes Problem Recurrent major depression (48898729) Major depressive disorder with current active episode (F33.9) Active confirmed Problem Alcohol dependence (57345977) Alcohol use disorder, moderate, dependence (F10.20) Active confirmed Plan Of Treatment No Information Insurance Providers Payer Name Payer Address Payer Phone Subscriber Number Group Number Insured Name Patient Relationship to Insured Coverage Start Date Coverage End Date U[employer] A[employer] Medicare [address] [address] [place] [phone] [id number] PortageAntonette sousa Self - patient is the insured 2 Medical (General) History Medical History History ICD Code renal failure - a few years ago due to c hronic alcohol use with statin depression hypertension hyperlipidemia painful breasts (getting mammogram) Surgical History Surgery Date(Month/Year) tubal ligation 35 years ago hysterectomy 30 years ago Hospitalization History Reason Date(Month/Year) Rehab for alcohol 1985 Rehab for alcohol 2010 alcohol related health problems November 2021
--- OUTSIDE RECORDS SUMMARY | 2024-10-12 12:28 | XMS_ITS | Clinical Summary ---
Author Organization [facility] Address [address] [place] [address] Phone Care Team Providers Care Energy Project Engineer Name Role Phone Rigo Bojorquez MD Primary Care Provider + Social History Tobacco Use Types Packs/Day Years Used Date Smoking Tobacco: Never Assessed Comments Unknown Sex and Gender Information Value Date Recorded Sex Assigned at Not on file Legal Sex Female 2:43 AM QUANTITATIVE ASSOCIATE Gender Identity Not on file Sexual Orientation Not on file Plan of Treatment Health Maintenance Due Date Last Done Comments DTAP/TDAP/TD VACCINES (1 - Tdap) 1974 BREAST CANCER SCREENING 1995 COLORECTAL SCREENING 01/07/2000 Colorectal Cancer Screening 01/07/2000 FIT-DNA Q 3 years 01/07/2000 FIT/FOBT Q 1 year 01/07/2000 Flex Sig/CT Colonography Q 5 years 01/07/2000 PNEUMOCOCCAL VACCINE 50+ YEARS (1 of 1 - PCV) 01/07/20 05 ZOSTER VACCINE (1 of 2) 2005 OSTEOPOROSIS SCREENING 01/07/2020 INFLUENZA VACCINE (#1) 2024 RSV VACCINE (60+ or ) (1 - 1-dose 75+ series) 2030 Care Teams Energy Project Engineer Relationship Specialty Start Date End Date Rigo Bojorquez MD [address] [place] [id number] PCP - General 05/21/05
--- OUTSIDE RECORDS SUMMARY | 2024-10-12 12:28 | XMS_ITS | Clinical Summary ---
Author Organization [facility] Address [address] [place] [address] Phone Care Team Providers Care Salt Refiner Name Role Phone Jackeline Hu MD Primary Care Provider Allergies Active Allergy Reactions Criticality Noted Date Comments Iodine High 06/02/2018 Lisinopril Angioedema High 06/02/2018 Medications Medication Sig Dispensed Refills Start Date End Date Status busPIRone (BUSPAR) 5 MG tablet Take 5 mg by mouth 3 (three) times a day 04/16/2022 Active hydrALAZINE (APRESOLINE) 25 MG tablet Take 25 mg by mouth 3 (three) times a day 04/16/2022 Active metoprolol succinate XL (TOPROL-XL) 100 MG 24 hr tablet Take 100 mg by mouth 1 (one) time each day 04/05/2022 Active omeprazole OTC (PriLOSEC OTC) 20 MG EC tablet Take by mouth 06/02/2018 Active Active Problems Problem Noted Date Diagnosed Date Essential hypertension 05/21/2022 Hyposmolality and/or hyponatremia 05/15/2022 Alcohol abuse, continuous drinking behavior 08/2017 Overview (05/16/2021): drinks 1/2 bottle of 750 ml per day, counseled to cut down Hypercholesterolemia 06/02/2018 Other specified diabetes rita litus with ketoacidosis without coma 06/02/2018 Snoring 06/02/2018 Anemia 07/21/2017 Social History Tobacco Use Types Packs/Day Years Used Date Smoking Tobacco: Former Smokeless Tobacco: Never Alcohol Use Standard Drinks/Week Comments Not Currently 0 (1 standard drink = 0.6 oz pur e alcohol) Sex and Gender Information Value Date Recorded Sex Assigned at Not on file Gender Identity Not on file Sexual Orientation Not on file Last Filed Vital Signs Vital Sign Reading Time Taken Comments Blood Pressure 126/60 05/21/2022 11:39 AM CDT Pulse 72 05/21/2022 11:39 AM CDT Temperature 36.4 C (97.5 F) 05/21/2022 11:39 AM CDT Respiratory Rate - - Oxygen Saturation - - Inhaled Oxygen Concentration - - Weight 54.9 kg (121 lb) 05/21/2022 11:39 AM CDT Height 154.9 cm (5' 1 ) 05/21/2022 11:39 AM CDT Body Mass Index 22.86 05/21/2022 11:39 AM CDT Plan of Treatment Health Maintenance Due Date Last Done Comments Pneumococcal PPSV23/PCV13 65 + Years / High and Highest Risk (1 of 4 - PCV) 1961 Diabetic Foot Exam 1965 Ophthalmology Exam 1965 Influenza Vaccine (#1) 2024 Care Teams Salt Refiner Relationship Specialty Start Date End Date Jackeline uH MD [address] [place] [address] PCP - General Internal Medicine 04/14/21
--- OUTSIDE RECORDS SUMMARY | 2024-10-12 12:28 | XMS_ITS | Encounter Summary ---
Author Organization [facility] Address 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
--- OUTSIDE RECORDS SUMMARY | 2024-10-12 12:28 | XMS_ITS | Patient Health Summary ---
Author Organization [facility] Address [address] [place] [address] Care Team Providers Care String Cutter Name Role Phone Pedrito Rey MD Primary Care Provider [phone] Note from [facility],non-owned Affiliates and Associated Physician Practices is amultiple site organization consisting of ambulatory clinics and hospital sitesin [place], [place], [place] and [place]. This disclosure is being madepursuant to the Care Everywhere program and may not contain all information available regarding this patient. Last updated 18.[facility] Active Problems Problem Noted Date Diagnosed Date Anemia 07/21/2017 Social History Tobacco Use Types Packs/Day Years Used Date Smoking Tobacco: Never Assessed Sex and Gender Information Value Date Recorded Sex Assigned at Not on file Gender Identity Not on file Sexual Orientation Not on file Procedures * GROSS + MICRO EXAM(Performed 06/09/2000) Results * GROSS + MICRO EXAM (06/09/2000 1:56 PM PROFILE SAW SETUP OPERATOR) Result CASE NUMBER [id number] Comment: ORDERING PHYSICIAN KIRTI MONROY SPECIMEN TYPE Biopsy-distal esophagus ascend c Date 06/09/2000 Physician Alvino Gross Description 2 specimens are received in formalin, labeled with the patients name. 1-the specimen is identified as `distal esophagus' and consists of multiple pieces of palma soft tissue measuring .7 x .5 x .2 cm in aggregate. The entire specimen is wrapped in tissue paper and submitted in A. 2-the specimen is identified as `ascending' and consists of multiple pieces of palma soft tissue measuring .8 x .7 x .2 cm in aggregate. The entire specimen is wrapped in tissue paper and submitted in B. /[facility] [place] Microscopic Exam Sections labeled A reveals squamous and columnar lined fragments. Squamous epithelium shows areas of acanthosis. Normal maturation is noted. Columnar lined fragment consists of gastric cardia. The lamina propria shows lymphoplasmacytic infiltration. Focal area of intestinal metaplasia is seen. No dysplasia is noted. No malignancy is seen. Alcian Blue stain reveals intracytoplasmic mucin positive material. Sections labeled B reveals colonic mucosal fragments. The lamina propria shows focal area of increased lymphoplasmacytic and eosinophilic infiltrate with focal cryptitis. No evidence of crypt abscess, granulomas, glandular irregularity, malignancy is seen. No evidence of crypt abscess, cryptitis, granulomas or malignancy is seen. Diagnosis I. Distal esophagus, biopsy A. Griggs's esophagitis with chronic inflammation B. No evidence of dysplasia II. Ascending colon, biopsy A. Focal acute and chronic colitis with cryptitis, Non-specific B. No evidence of malignancy. Sr/ Bisque [facility] [place] Pathologist Lucio Barfield M.D. Snomed. 06/10/2000 1135 <2> CPT code [id number] x2, [id number] MISCELLANEOUS SAMPLES / Unknown 06/09/2000 1:56 PM PROFILE SAW SETUP OPERATOR 06/09/2000 1:57 PM PROFILE SAW SETUP OPERATOR Historical Provider LAB - PATHOLOGY/C YTOLOGY ORDERABLES Care Teams String Cutter Relationship Specialty Start Date End Date Pedrito Rey MD [address] [place] [id number] PCP - General 07/09/17
--- OUTSIDE RECORDS SUMMARY | 2024-10-12 12:28 | XMS_ITS | Encounter Summary ---
Author Organization [facility] Address [address] [place] [address] Care Team Providers Care Staff Training And Development Manager Name Role Phone Rigo Bojorquez MD Primary Care Provider + Encounter Details Date Type Department Care Team (Late st Contact Info) Description 06/15/2006 Outpatient Historical [facility] Caio De Oliveira MD [address] [place] [address] [place] [address] Esophageal Reflux (Primary Dx) Social History Tobacco Use Types Packs/Day Years Used Date Smoking Tobacco: Never Assessed Comments Unknown Sex and Gender Information Value Date Recorded Sex Assigned at Not on file Legal Sex Female 2:43 AM FINANCIAL ADVOCATE Gender Identity Not on file Sexual Orientation Not on file documented as of this encounter Plan of Treatment Not on file documented as of this encounter Visit Diagnoses Diagnosis Esophageal reflux- Primary documented in this encounter Care Teams Staff Training And Development Manager Relationship Specialty Start Date End Date Rigo Bojorquez MD [address] [place] [phone] PCP - General 05/21/05 documented as of this encounter
--- OUTSIDE RECORDS SUMMARY | 2024-10-12 12:28 | XMS_ITS | Clinical Summary ---
Author Organization [facility] Address [address] [place] [address] Care Team Providers Care Profile Grinder Name Role Phone Pedrito Rey MD Primary Care Provider [phone] Source Comments [facility],non-owned Affiliates and Associated Physician Practices is amultiple site organization consisting of ambulatory clinics and hospital sitesin [place], [place], [place] and [place]. This disclosure is being madepursuant to the Care Everywhere program and may not contain all information available regarding this patient. Last updated 18.[facility] Active Problems Problem Noted Date Diagnosed Date Anemia 07/21/2017 Social History Tobacco Use Types Packs/Day Years Used Date Smoking Tobacco: Never Assessed Sex and Gender Information Value Date Recorded Sex Assigned at Not on file Gender Identity Not on file Sexual Orientation Not on file Plan of Treatment Health Maintenance Due Date Last Done Comments BONE DENSITY TESTING 1955 COLOGUARD (AGES 45-75) - COL ON CA SCREENING 1955 COLON MONITORING 1955 COLONOSCOPY - COLON CA SCREENING 1955 CT COLONOGRAPHY - COLON CA SCREENING 1955 Colorectal Cancer Screening 1955 FIT - COLON CA SCREENING 1955 FLEX SIG - COLON CA SCREENING 1955 LIPID TESTING 1955 MAMMOGRAM 1955 HEPATITIS C SCREENING 01/01/1973 DTAP/TDAP/TD VACCINES (1 - Tdap) 1974 PNEUMOCOCCAL VACCINE 50+ (1 of 1 - PCV) 2005 ZOSTER VACCINE (1 of 2) 2005 COVID-19 VACCINE ( - 2023-2 5 season) 2024 INFLUENZA VACCINE (#1) 2024 DEPRESSION SCREENING 08/02/2024 MEDICARE AWV CALENDAR YEAR 2024 Respiratory Syncytial Virus (RSV) Vaccine Pt: or over 60 yrs (1 - 1-dose 75+ series) 2030 HEPATITIS B VACCINE Aged Out No longe r eligible based on patient's age to complete this topic HIB VACCINE Aged Out No longer eligi ble based on patient's age to complete this topic HPV VACCINE Aged Out No longer eligi ble based on patient's age to complete this topic MENINGOCOCCAL (Group B) VACC INE SHARED DECISION-MAKING Aged Out No longer eligibl e based on patient's age to complete this topic MENINGOCOCCAL GROUPS A/C/Y/W VACCINE Aged Out No longer eligible b ased on patient's age to complete this topic Care Teams Profile Grinder Relationship Specialty Start Date End Date Pedrito Rey MD [facility] [address] [facility] [address] [place] [address] PCP - General 07/09/17
--- OUTSIDE RECORDS SUMMARY | 2024-10-12 12:28 | XMS_ITS | Referral Summary ---
Author Organization [facility] Address [address] [place] [address] Care Team Providers Care Wrist Liner Name Role Phone Pedrito Rey MD Primary Care Provider [phone] Source Comments [facility],non-owned Affiliates and Associated Physician Practices is amultiple site organization consisting of ambulatory clinics and hospital sitesin [place], [place], [place] and [place]. This disclosure is being madepursuant to the Care Everywhere program and may not contain all information available regarding this patient. Last updated 18.[facility] [employer] Active Problems Problem Noted Date Diagnosed Date Anemia 07/21/2017 Social History Tobacco Use Types Packs/Day Years Used Date Smoking Tobacco: Never Assessed Sex and Gender Information Value Date Recorded Sex Assigned at Not on file Gender Identity Not on file Sexual Orientation Not on file Plan of Treatment Not on file Care Teams Wrist Liner Relationship Specialty Start Date End Date Pedrito Rey MD [address] [address] [place] [address] PCP - General 07/09/17
== END 2024-10-12 10:41 | disposition home or self-care (01) ==
PROVIDERS: PCP Internal Medicine; Visit Provider Internal Medicine
DX: M54.2 Cervicalgia (principal); M06.9 Rheumatoid arthritis, unspecified; M19.041 Primary osteoarthritis, right hand; M19.042 Primary osteoarthritis, left hand
CPT/HCPCS: 73130

== ENCOUNTER 2025-07-09 15:40 | Outpatient (CLI) | payer MEDICARE, SELFPAY ==
--- NOTE | ~2025-07-09 | US_ITS ---
EXAMINATION: US carotid duplex BI DATE: 07/09/2025 16:59 INDICATION: Carotid artery disease. TECHNIQUE: Grayscale, color Doppler, and pulsed Doppler images of the cervical carotid arteries were obtained. The degree of vessel stenosis is placed in one of the following categories: normal, <50%, 50-69%, >=70% but less than near- occlusion, near-occlusion, or total occlusion. Note that percent stenosis relative to normal distal artery lumen diameter is indirectly measured from velocity measurements as described by Danny, et al. Radiology 2003; 229:340-346. COMPARISON: CT head without contrast 05/12/2024 FINDINGS: RIGHT: The right common carotid artery (CCA) peak systolic velocity (PSV) is 91 cm/s. The right internal carotid artery (ICA) PSV is 113 cm/s. The right ICA end- diastolic velocity (EDV) is 31 cm/s. The right ICA/CCA PSV ratio is 1.2. Grayscale and color Doppler images yield an estimate of less than 50% diameter reduction from plaque in the ICA. There is antegrade flow in the right vertebral artery. LEFT: The left CCA PSV is 104 cm/s. The left ICA PSV is 112 cm/s. The left ICA EDV is 35 cm/s. The left ICA/CCA PSV ratio is 1.1. Grayscale and color Doppler images yield an estimate of less than 50% diameter reduction from plaque in the ICA. There is antegrade flow in the left vertebral artery. IMPRESSION: 1. Antegrade flow noted in both vertebral arteries. 2. Calcified atherosclerotic plaque of the carotid bulbs on both sides extending to proximal internal carotid arteries. Based on above-mentioned velocities and ratios, the lesions are estimated to produce less than 50% diameter narrowing, not likely to be hemodynamically significant. Interpretation based on NASCET criteria. Reviewed, dictated and finalized at location T. [employer] SCHO[employer] NURSE IMPRESSION: 1. Antegrade flow noted in both vertebral arteries. 2. Calcified atherosclerotic plaque of the carotid bulbs on both sides extendin g to proximal internal carotid arteries. Based on above-mentioned velocities an d ratios, the lesions are estimated to produce less than 50% diameter narrowing , not likely to be hemodynamically significant. Interpretation based on NASCET criteria.
--- NOTE | ~2025-07-09 | XR_ITS ---
[id number] Indication: neck pain, chronic back pain Comparison: None Findings: Grade 1 anterolisthesis of C2 on C3 and C3 on C4, grade 1 retrolisthesis of C4 on C5, no fracture. Moderate osteopenia. Moderate to severe loss of disc height at C4-5 C5-6 and C6-7. Soft tissues unremarkable Impression: No acute abnormality. Reviewed, dictated and finalized at location P. CHECKER Impression: No acute abnormality.
--- NOTE | ~2025-07-09 | XR_ITS ---
EXAMINATION: XR lumbar spine 2-3V DATE: 07/09/2025 16:24 INDICATION: Chronic back pain TECHNIQUE: Anteroposterior and lateral views of the lumbar spine, and cone-down lateral view of the lumbosacral junction were obtained. COMPARISON: CT dated 05/08/2023 FINDINGS: 40 degree thoracolumbar dextroscoliosis and 30 degrees lumbar levoscoliosis. Sagittal alignment is normal. Chronic L3 compression fracture with 40% right anterior vertebral body height loss. Moderate to severe left-sided prominent disc height loss at T12-L1 and L1-L2. Moderate left-sided prominent disc height loss at L1-L2 and right-sided prominent disc height loss at L2-L3. Mild disc height loss at L4-L5 and L5-S1. Severe multilevel right sided and lower lumbar predominant facet osteoarthritis. Mild bilateral sacroiliac osteoarthritis. Visualized lung bases are clear with no pleural effusion. IMPRESSION: 1. Moderate S-shaped scoliosis of the lumbar and lower thoracic spine with moderate to severe spondylosis. 2. Chronic L2 compression fracture which appears unchanged since prior CT accounting for differences in technique Reviewed, dictated and finalized at location A. UM EXTRACTOR OPERATOR IMPRESSION: 1. Moderate S-shaped scoliosis of the lumbar and lower thoracic spine with mode rate to severe spondylosis. 2. Chronic L2 compression fracture which appears unchanged since prior CT accou nting for differences in technique
--- OUTSIDE RECORDS SUMMARY | 2025-07-09 19:08 | XMS_ITS | Encounter Summary ---
Author Organization [facility] Address 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
--- OUTSIDE RECORDS SUMMARY | 2025-07-09 19:08 | XMS_ITS | Clinical Summary ---
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
--- OUTSIDE RECORDS SUMMARY | 2025-07-09 19:08 | XMS_ITS | Encounter Summary ---
Author Organization [facility] Address 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
== END 2025-07-09 15:41 | disposition home or self-care (01) ==
PROVIDERS: PCP Internal Medicine; Visit Provider Internal Medicine
DX: I65.23 Occlusion and stenosis of bilateral carotid arteries (principal); M41.86 Other forms of scoliosis, lumbar region; M41.84 Other forms of scoliosis, thoracic region; M47.814 Spondylosis without myelopathy or radiculopathy, thoracic region; M43.12 Spondylolisthesis, cervical region; M85.88 Other specified disorders of bone density and structure, other site; R29.890 Loss of height
CPT/HCPCS: 72040; 72100; 93880